=== PATIENT | male | born 1940 | race Caucasian/White ===

== ENCOUNTER → 2018-04-13 | Outpatient (CLI) | payer MEDICARE, OTHER ==
[2018-04-13 16:15] LABS: BILIRUBIN,DIRECT 0.3 MG/DL (0.0-0.3); BILIRUBIN,INDIRECT 0.3 MG/DL; BILIRUBIN,TOTAL 0.6 MG/DL (0.1-1.0); TOTAL PROTEIN 6.9 GM/DL (6.4-8.2)
[2018-04-15 06:18] LABS: HEPATITIS C ANTIBODY C Non-Reactive (Non-Reactive)
== END ==
LOC: LAB 15:19
PROVIDERS: ATTEND Orthopaedic Surgery
DX: M25.562 Pain in left knee (principal); R17 Unspecified jaundice
CPT/HCPCS: 36415; 80074; 80076

== ENCOUNTER → 2020-07-26 | Outpatient (CLI) | payer MEDICARE, OTHER | LOC: LAB FS 10:20 | PROVIDERS: ATTEND Orthopaedic Surgery Orthopaedic Surgery of the Spine | DX: Z01.812 Encounter for preprocedural laboratory examination (principal); Z20.822 Contact with and (suspected) exposure to COVID-19 | CPT/HCPCS: 87635 ==

== ENCOUNTER 2022-01-22 14:03 | Emergency (ER) | payer MEDICARE, OTHER ==
[~2022-01-22] VITALS: Ht 195 cm; Wt 122.0 kg
[2022-01-22 14:40] VITALS: BP 147/79
--- NOTE | 2022-01-22 14:41 | ED Fall/Injury ---
General Stated Complaint: FALL; BACK/FACIAL PAIN Source: patient, family Exam Limitations: no limitations History of Present Illness Date Seen by Provider: Jan 22, 2022 Time Seen by Provider: 14:08 Initial Comments 81-year-old male with past medical history of Parkinson's coming in after he was sitting in a chair, and fell backwards, and hit the back of his head roughly 2 and half hours prior to arrival. He had a bad headache for short period of time which now is mostly gone. He also has midthoracic back pain which is worse with moving, better with rest. He has been ambulatory since the incident. He also states he is having some jaw discomfort, although he did not hit his jaw on the ground. Does not take any blood thinners daily. Otherwise denying any other acute complaints Allergies and Home Medications Allergies Coded Allergies: No Known Drug Allergies (Unverified , 01/22/22) Patient Home Medication List Home Medication List Reviewed: Yes Review of Systems Review of Systems Constitutional: No fever Eyes: No Symptoms Reported Ears, Nose, Mouth, Throat: mouth pain (Jaw discomfort) Respiratory: no symptoms reported Cardiovascular: no symptoms reported Gastrointestinal: no symptoms reported Genitourinary: no symptoms reported Musculoskeletal: see HPI Skin: no symptoms reported Psychiatric/Neurological: Headache All Other Systems Reviewed Negative Unless Noted: Yes Past Xbffqkw-Mmppzq-Zpazic Hx Patient Social History Tobacco Use?: No Substance use?: No Alcohol Use?: No Past Medical History Surgeries: Yes (prostate surgery) Physical Exam Vital Signs Vital Signs - First Documented 01/22/22 14:40 Pulse 81 Resp 16 B/P (MAP) 147/79 (101) Pulse Ox 95 O2 Delivery Room Air Capillary Refill : Height, Weight, BMI Height: '" Weight: lbs. oz. kg; BMI Method: General Appearance: WD/WN, no apparent distress HEENT: PERRL/EOMI, normal ENT inspection, pharynx normal Neck: non-tender, full range of motion, supple, normal inspection Cardiovascular: regular rate, rhythm, no edema, no murmur Respiratory: chest non-tender, lungs clear, normal breath sounds, no respirat ory distress, no accessory muscle use Gastrointestinal: normal bowel sounds, non tender, soft; No distended, No guarding, No rebound Back: normal inspection, no CVA tenderness, vertebral tenderness (mid thoracic, mild) Extremities: normal range of motion, non-tender, normal inspection, no pedal edema, no calf tenderness, normal capillary refill Neurologic/Psychiatric: 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 II-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 nml as tested, no motor/sensory deficits, alert, normal mood/affect, oriented x 3, other (Slow gait assisted with walker) Skin: normal color, warm/dry Lymphatic: no adenopathy Sebastián Coma Score Best Eye Response: (4) Open Spontaneously Best Verbal Response: (5) Oriented Best Motor Response: (6) Obeys Commands Progress/Results/Core Measures Results/Orders My Orders Orders - KARLI FAY MD Ct Head/Face/Cervical Wo (01/22/22 14:36) Ct Thoracic Spine Wo (01/22/22 14:36) Vital Signs/I&O 01/22/22 14:40 Pulse 81 Resp 16 B/P (MAP) 147/79 (101) Pulse Ox 95 O2 Delivery Room Air Progress Progress Note : Progress Note 81-year-old male presented after mechanical fall. Tender on the head, mid thoracic spine, and jaw. CT head, cervical spine, max face, and thoracic spine ordered with no acute abnormalities. There is a thyroid mass that needs an outpatient ultrasound which I made him aware of. He was then discharged home in stable condition with strict return precautions Diagnostic Imaging Diagonstic Imaging: CT (head,c spine, max face, t spine) Comments [facility]. [place], [place] NAME: SHERIDAN PAGE [facility] REC#: [id number] PT STATUS: REG ER : 1940 PHYSICIAN: KARLI FAY MD ADMIT DATE: 01/22/22/ER FS Signed Date of Exam:01/22/22 CT HEAD/FACE/CERVICAL WO PROCEDURE: CT head, face, and cervical spine without contrast. TECHNIQUE: Multiple contiguous axial images were obtained through the head, neck, and facial bones without the use of intravenous contrast. Sagittal and coronal reformations through the cervical spine and facial bones were also performed. Auto Exposure Controls were utilized during the CT exam to meet ALARA standards for radiation dose reduction. INDICATION: Fall with injury to the head, neck and face. COMPARISON: No prior studies are available for comparison. CT HEAD: The ventricles and sulci are appropriate for the patient's age. No sulcal effacement or midline shift is identified. No acute intra-axial or extra-axial hemorrhage is detected. Cisterns are patent. Visualized paranasal sinuses are clear apart from opacification of the right half of the frontal sinus and right-sided ethmoid air cells. Sphenoid sinus and maxillary sinuses are clear. Mastoids are well-aerated. IMPRESSION: 1. No acute intracranial process is detected. 2. Paranasal sinus disease. CT CERVICAL SPINE: Curvature and alignment of the cervical spine is normal. No fracture or subluxation is seen. There is generalized cervical degenerative disc disease with variable disc space narrowing and marginal spurring. The prevertebral tissues are normal. The odontoid is intact. There appears to be a large mass in the left paratracheal location, likely enlarged thyroid. IMPRESSION: 1. Cervical spondylosis. No acute bony abnormality is detected. 2. Probable left thyroid mass. Dedicated thyroid ultrasound could be performed on a nonemergent basis for further evaluation. CT FACE: The mandible is intact. Zygomatic arches are intact. The maxillary sinus galicia, nasal bones and orbital galicia appear intact. No definite facial bone fracture is seen. There is opacification of the right half of the frontal sinus as well as several right-sided ethmoid air cells. There is also some mucosal thickening of the right maxillary sinus. Otherwise the paranasal sinuses are clear. IMPRESSION: 1. Paranasal sinus mucosal disease. 2. No facial bone fracture is detected. Dictated by: Dictated on workstation # [id number] Dict: 01/22/22 1517 Trans: 01/22/22 1556 [facility] [id number] Interpreted by: SUSAN JETER MD Electronically signed by: SUSAN JETER MD 01/22/22 1556 [facility] [place], [place] NAME: SHERIDAN PAGE [facility] REC#: [id number] PT STATUS: REG ER : 1940 PHYSICIAN: KARLI FAY MD ADMIT DATE: 01/22/22/ER FS Signed Date of Exam:01/22/22 CT THORACIC SPINE WO PROCEDURE: CT thoracic spine without contrast. TECHNIQUE: Multiple axial computerized tomography images were obtained from the base of the thoracic spine to the vertex without intravenous contrast. Auto Exposure Controls were utilized during the CT exam to meet ALARA standards for radiation dose reduction. INDICATION: Back injury from a fall. FINDINGS: Patient has had previous kyphoplasties at T8, T9 and T10. Vertebral alignment is normal. There are no acute compression fractures. IMPRESSION: No acute abnormality seen in the thoracic spine. Dictated by: Dictated on workstation # [id number] Dict: 01/22/22 1524 Trans: 01/22/22 1545 [id number] Interpreted by: SOLEDAD ALEXANDRA MD Electronically signed by: SOLEDAD ALEXANDRA MD 01/22/22 1545 Departure Impression Primary Impression: Fall Qualified Codes: W19.XXXA - Unspecified fall, initial encounter Additional Impression: Back pain Qualified Codes: M54.6 - Pain in thoracic spine Disposition: 01 HOME, SELF-CARE Condition: Stable Departure-Patient Inst. Decision time for Depature: 16:09 Referrals: LORENA SCHAEFFER MD (PCP) Primary Care Physician Patient Instructions: Upper Back Pain ED Add. Discharge Instructions: Fortunately nothing is broken on the CT imaging of your head, face, neck, and back. The left-sided for thyroid appeared enlarged on the CT imaging. You do need an ultrasound of your thyroid as an outpatient on a nonemergent basis. Take Tylenol as needed for pain. KARLI FAY MD Jan 22, 2022 14:41
--- NOTE | 2022-01-22 15:32 | Diagnostic Imaging Report ---
PROCEDURE: CT thoracic spine without contrast. TECHNIQUE: Multiple axial computerized tomography images were obtained from the base of the thoracic spine to the vertex without intravenous contrast. Auto Exposure Controls were utilized during the CT exam to meet ALARA standards for radiation dose reduction. INDICATION: Back injury from a fall. FINDINGS: Patient has had previous kyphoplasties at T8, T9 and T10. Vertebral alignment is normal. There are no acute compression fractures. IMPRESSION: No acute abnormality seen in the thoracic spine. Dictated by: Dictated on workstation # [id number]
--- NOTE | 2022-01-22 15:33 | Diagnostic Imaging Report ---
PROCEDURE: CT head, face, and cervical spine without contrast. TECHNIQUE: Multiple contiguous axial images were obtained through the head, neck, and facial bones without the use of intravenous contrast. Sagittal and coronal reformations through the cervical spine and facial bones were also performed. Auto Exposure Controls were utilized during the CT exam to meet ALARA standards for radiation dose reduction. INDICATION: Fall with injury to the head, neck and face. COMPARISON: No prior studies are available for comparison. CT HEAD: The ventricles and sulci are appropriate for the patient's age. No sulcal effacement or midline shift is identified. No acute intra-axial or extra-axial hemorrhage is detected. Cisterns are patent. Visualized paranasal sinuses are clear apart from opacification of the right half of the frontal sinus and right-sided ethmoid air cells. Sphenoid sinus and maxillary sinuses are clear. Mastoids are well-aerated. IMPRESSION: 1. No acute intracranial process is detected. 2. Paranasal sinus disease. CT CERVICAL SPINE: Curvature and alignment of the cervical spine is normal. No fracture or subluxation is seen. There is generalized cervical degenerative disc disease with variable disc space narrowing and marginal spurring. The prevertebral tissues are normal. The odontoid is intact. There appears to be a large mass in the left paratracheal location, likely enlarged thyroid. IMPRESSION: 1. Cervical spondylosis. No acute bony abnormality is detected. 2. Probable left thyroid mass. Dedicated thyroid ultrasound could be performed on a nonemergent basis for further evaluation. CT FACE: The mandible is intact. Zygomatic arches are intact. The maxillary sinus galicia, nasal bones and orbital galicia appear intact. No definite facial bone fracture is seen. There is opacification of the right half of the frontal sinus as well as several right-sided ethmoid air cells. There is also some mucosal thickening of the right maxillary sinus. Otherwise the paranasal sinuses are clear. IMPRESSION: 1. Paranasal sinus mucosal disease. 2. No facial bone fracture is detected. Dictated by: Dictated on workstation # [id number]
== END 2022-01-22 16:15 | disposition home or self-care (01) ==
LOC: EDUNIT# 14:03 → ER FS 14:05
DX: M54.6 Pain in thoracic spine (principal); R68.84 Jaw pain; W07.XXXA Fall from chair, initial encounter
CPT/HCPCS: 70450; 70486; 72125; 72128; 99285

== ENCOUNTER 2023-01-25 11:23 | Inpatient (IN) | payer MEDICARE, OTHER ==
[~2023-01-25] VITALS: Ht 193 cm; Wt 111.0 kg
[2023-01-25] MEDS ORDERED: MAGN420T PO (11:42)
[2023-01-25] MEDS ORDERED: CARB-300 PO (11:42)
[2023-01-25] MEDS ORDERED: TMSL.4C PO (11:42)
[2023-01-25] MEDS ORDERED: ASPI-999 PO (11:42)
[2023-01-25] MEDS ORDERED: TRZ50T PO (11:42)
[2023-01-25] MEDS ORDERED: NALO4SPR NS (11:42)
[2023-01-25] MEDS ORDERED: LISI30TA5 PO (11:42)
[2023-01-25] MEDS ORDERED: SULF1TAB34 PO (11:42)
[2023-01-25] MEDS ORDERED: ONDANSETRON 4 MG ORAL DISSOLVE TABLET PO PRN (13:30)
[2023-01-25] MEDS ORDERED: guaiFENesin/CODEINE 10ML UDC PO PRN (13:30)
[2023-01-25] MEDS ORDERED: diphenhydrAMINE 25 MG TABLET PO PRN (13:30)
[2023-01-25] MEDS ORDERED: Sodium Phosphate/Sodium Biphosphate ADULT enema PR PRN (13:30)
[2023-01-25] MEDS ORDERED: CALCIUM CARBONATE 500 MG CHEW TABLET PO PRN (13:30)
[2023-01-25] MEDS ORDERED: DOCUSATE SODIUM 100 MG CAPSULE PO PRN (13:30)
[2023-01-25] MEDS ORDERED: LOPERAMIDE 2 MG CAPSULE PO PRN (13:30)
--- NOTE | 2023-01-25 13:32 | PM&R Post Admission Assessment ---
PM&R HP Date of Visit: Jan 25, 2023 Time of Visit: 18:00 History of Present Illness CC: Parkinsonism HPI: This is an 82yoWM clinic patient of Dr Macedo who presents from [facility] following a respiratory arrest after aspirating cauliflower on 01/19/23. He has a h/o Parkinsonism and has had dysphagia on a chronic and worsened status prior to event. He was intubated after multiple attempts and was moved to [place] for higher level of care and remained intubated until 01/21/23. Patient completed Zosyn for aspiration PNA and remains on 2L/min. He is very debilitated. Aggressive rehab will be initiated, Family is at bedside. Past Gztefzk-Yatpee-Mmeprd Hx Past Med/Social Hx: Reviewed Nursing Past Med/Soc Hx, Reviewed and Corrections made Patient Social History Marrital Status: Employed/Student: employed Alcohol Use: Occasionally Uses Smoking Status: Never a Smoker Past Medical History Neurological: Parkinson's Disease Musculoskeletal: Degenerate Disk Disease PM&R Allergy/Meds/Data Review Allergies Coded Allergies: No Known Drug Allergies (Unverified , 01/22/22) Home Medications Scheduled Aspirin (Aspirin), 81 MG PO DAILY, (Reported) Carbidopa/Levodopa (Carbidopa-Levodopa 25-100 Tab), 3 EA PO TID, (Reported) Lisinopril (Lisinopril), 30 MG PO DAILY, (Reported) Multivitamin (Multivitamin), 1 EACH PO DAILY, (Reported) Solifenacin Succinate (Solifenacin Succinate), 5 MG PO HS, (Reported) Sulfamethoxazole/Trimethoprim (Sulfamethoxazole-Tmp Ss Tablet), 1 EA PO HS, (Reported) Trazodone HCl (Trazodone HCl), 50 MG PO HS, (Reported) Scheduled PRN Naloxone HCl (Narcan), 1 SPRAY NS UD PRN for OPIOID OD, (Reported) Current Medications Current Medications Reviewed Review of Systems Constitutional: see HPI, dizziness, malaise, weakness EENTM: no symptoms reported Respiratory: cough, dyspnea on exertion Cardiovascular: no symptoms reported Gastrointestinal: no symptoms reported Genitourinary: no symptoms reported Musculoskeletal: back pain, joint pain Skin: no symptoms reported Psychiatric/Neurological: Anxiety, Depressed All Other Systems Reviewed Negative Unless Noted: Yes Physical Exam Physical Exam Vital Signs Capillary Refill : Height, Weight, BMI Height: '" Weight: lbs. oz. kg; 32.00 BMI Method: General Appearance: No Apparent Distress, WD/WN, Chronically ill Eyes: Bilateral Eye Normal Inspection, Bilateral Eye PERRL HEENT: PERRL/EOMI, Normal ENT Inspection, Pharynx Normal Neck: Full Range of Motion, Normal Inspection, Non Tender, Supple, Carotid Bruit Respiratory: Chest Non Tender, Lungs Clear, Normal Breath Sounds, No Accessory Muscle Use, No Respiratory Distress, Decreased Breath Sounds Cardiovascular: Regular Rate, Rhythm, No Edema, No Gallop, No JVD, No Murmur, Normal Peripheral Pulses Gastrointestinal: Normal Bowel Sounds, No Organomegaly, No Pulsatile Mass, Non Tender, Soft Back: Normal Inspection, No CVA Tenderness, No Vertebral Tenderness Extremity: Normal Capillary Refill, Normal Inspection, Normal Range of Motion, Non Tender, No Calf Tenderness, No Pedal Edema Neurologic/Psychiatric: Alert, Oriented x3, 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 Norm as Tested, Abnormal Gait, Depressed Affect, Motor Weakness (generalized) Skin: Normal Color, Warm/Dry Lymphatic: No Adenopathy PM&R Medical Assessment & Plan REHAB/MEDICAL ASSESSMENT AND PLAN: REHAB IMPAIRMENT GROUP: Parkinsonism with debility ETIOLOGIC DIAGNOSIS: Respiratory failure with aspiration PNA and intubation The comorbidities that impact the patients function and/or functional outcome by: severe PD, dysphagia, aspiration risk, constipation REHAB PLAN: The patient is being admitted to our comprehensive inpatient rehabilitation facility and can tolerate the intensity of service consisting of at least: 180 minutes of therapy a day, 5 out of 7 days a week Rehab treatment will consist of: PT OT will focus on regaining function with the use of AD in order to regain function and ambulation in order to return to independence and ST will work on aspiration risk The patient/family has a good understanding of our discharge process and will benefit from an interdisciplinary inpatient rehabilitation program. The patient has potential to make improvement and is in need of at least two of the following multidisciplinary therapies including but not limited to physical, occupational, speech, and prosthetics and orthotics. Additionally the patient will need services from respiratory, nutritional services, wound care, psychology, etc. (Customize this to each patient). Given the patients complex condition and risk of further medical complications, rehabilitation services cannot be safely or effectively provided at a lower level of care such as a correction facility. BARRIERS TO DISCHARGE: Severe debility with PD ESTIMATED LOS: 14 days DISPOSITION: Home RELEVANT CHANGES SINCE PREADMISSION SCREENING: I have compared the patients medical and functional status at the time of the preadmission screening and there are: no changes PROGNOSIS: Fair to good REHABILITATION GOALS: 1. PT OT will focus on regaining function with the use of AD in order to regain function and ambulation in order to return to independence and ST will work on aspiration risk All the above goals were reviewed with the patient and he/she is in agreement. By signing this document, I acknowledge that I have personally performed a full physical examination on this patient within 24 hours of admission to this inpatient rehabilitation facility and have determined the patient to be able to tolerate the above course of treatment at an intensive level for a reasonable period of time. I will be completing a detailed individualized Plan of Care for this patient by day #4 of the patients stay based upon the Preadmission Screen, the Post-Admission Evaluation, and the therapy evaluations. Admission Dx/Comorbidities: (1) Parkinsons ICD Codes: G20.A1 - Parkinson's disease without dyskinesia, without mention of fluctuations Assessment/Plan Assessment and Plan Assess & Plan/Chief Complaint Assessment: Severe debility following aspiration PNA and respiratory arrest s/p intubation Severe progressive Parkinsonism Dyphagia Severe constipation acute on chronic Plan: Home meds PT OT ST BM regimen HAIM PAYNE DO Jan 25, 2023 13:31
--- NOTE | 2023-01-25 14:38 | Occupational Therapy Eval ---
OT Evaluation-General/PLF Medical Diagnosis Admission Date Medical Diagnosis: Parkinson's Disease Onset Date: Jan 20, 2023 Therapy Diagnosis Therapy Diagnosis: decreased ADL status, weakness Referral Physician: Guerline Referral Reason: Evaluation/Treatment Medical History Pertinent Medical History: HTN, Parkinson's Additional Medical History HTN, Parkinson's Disease, bleeding ulcer, back surgery, knee surgery Current History 01/20/23 EMS [facility] due to choking episode followed by respiratory arrest (~5 min CPR, questionably lost pulse). Pt was intubated upon arrival to hospital. Pt transferred to [facility] for pulmonology consult, bronchoscopy and further management. Extubated 01/21/23. Pt transferred to [facility] 01/25/23 Reviewed History: Yes Social History Home: Assisted Living ([facility]) Current Living Status: Spouse Entry Into Home: Level Entry ADL-Prior Level of Function SCALE: Activities may be completed with or without assistive devices. 7-Jujmgghvje-djxclqt completes the activity by him/herself with no assistance from a helper. 5-Set-up or Clean-up Assistance-helper sets up or cleans up; patient completes activity. [place] assists only prior to or following the activity. 4-Supervision or Touching Assistance-helper provides verbal cues and/or touching/steadying and/or contact guard assistance as patient completes activity. Assistance may be provided throughout the activity or intermittently. 3-Partial/Moderate Assistance-helper does LESS THAN HALF the effort. [place] lifts, holds or supports trunk or limbs, but provides less than half the effort. 2-Substantial/Maximal Assistance-helper does MORE THAN HALF the effort. [place] lifts or holds trunk or limbs and provides more than half the effort. 5-Ujpymwnil-ncwazp does ALL the effort. Patient does none of the effort to complete the activity. Or, the assistance of 2 or more helpers is required for the patient to complete the activity. If activity was not attempted, code reason: 7-Patient Refused. 9-Not Applicable-not attempted and the patient did not perform the activity before the current illness, exacerbation or injury. 10-Not Attempted due to Environmental Limitations-(lack of equipment, weather restraints, etc.). 88-Not Attempted due to Medical Conditions or Safety Concerns. ADL PLOF Comments Pt required some assistance with ADLS at PLOF, IND with functional mobility u sing FWW. He has assistance with showering (drying legs and back), and assistance completing footwear. He has a walk in shower, it is small and he is unsure if a SC will fit. His completes medication management (she sorts medications into pill container, then he is able to take meds independently). He sleeps in a regular bed and has a standard toilet. He has ~3 falls a month using his walker. 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 Mental Status/Objective Patient Orientation: Person, Place, Time, Situation Attachments: Oxygen (2L NC) Current Glasses/Contacts: Yes Hearing Aids: Yes Dentures/Partials: No Hand Dominance: Left Upper Extremity ROM Decreased b/l, BUE shoulder flexion to approx 90 degrees, WFL elbow/wrist/hand Upper Extremity Coordination WFL Upper Extremity Sensation WFL, pt denies tingling/numbness BUEs. Upper Extremity Strength grossly 3/5 BUEs. ADL-Treatment Eating (QC): 3 (Assist per [employer]/RN.) Oral Hygiene (QC): 4 Shower/Bathe Self (QC): 1 (assist x2 required to wash buttocks.) Upper Body Dressing (QC): 4 (per pt report) Lower Body Dressing (QC): 1 On/Off Footwear (QC): 1 Toileting Hygiene (QC): 1 (assist x2 required.) Other Treatments OT evaluation complete. OT/PT cotreat due to skill of 2 clinicians required which a rehab therapy manager could not perform in order to coordinate UE/LEs, decrease fall risk, and due to pt's limitations in strength, activity tolerance, mobility/transfers. OT focused on UE placement, cues for sequencing and safety and ADLs, PT focused on LE placement, gross overall movement, transfers and mobility. Pt performed functional mobility and transfers including bed mobility, sit to/from stand, mobility using FWW, and w/c mobility. Pt taken to parallel bars, completed mobility forward/backward along length of bar 2 times, mirror placed in front of pt for visual cue for midline. Pt returned to his room via w/c, transfer to recliner using FWW. Max A x2 rolling, max A x2 sit to/from supine, max A x2 sit to/from stand (leans heavily L requiring max verbal/tactile cues for upright posture and walker use). Mod-Max x2 bed to/from chair with FWW. Mod A x2 functional mobility with FWW 35.5' with 3rd person for w/c follow (narrow YEN, short step length, leans heavily with multiple cues for upright posture and pushing down on walker). w/c mobility 135' using BUEs and LEs with cues to use RUE and avoid obstacles R side. O2 sats 86-88% on 2L in bed prior to upright activity. Increased to 3L per RN with no change. Increased to 4L with sats reaching 90% in supine. O2 at 4 L for gait. Sats 92% /p 35' gait. Education OT Patient Education: Correct positioning, Energy conservation, Modified ADL techniques, Progress toward Goal/Update tx plan, Purpose of tx/functional activities, Rehab process, Safety issues, Transfer techniques, W/C management Teaching Recipient: Patient Teaching Methods: Discussion Response to Teaching: Verbalize Understanding BIMS CAM BIMS Expression of Ideas and Wants: Without Difficulty Understanding Verbal Content: Understands Brief Interview/Mental Status: Yes IRF WALKER BIMS: IRF WALKER BIMS Response (Comments) Value Repitition of Three Words Three 3 Recalls Socks Yes, No Cue Required 2 Recalls Blue Yes, No Cue Required 2 Recalls Bed No, Could Not Recall 0 Year Correct 3 Month Accurate Within 5 Days 2 Day Incorrect or No Answer 0 Total 12 Patient Normally Able to Recal: Current Session, Location of own room, Staff Names and faces, That he/she in a [facility] Should Staff Asses. Mental St.: No Memory/Recall Ability: Current Season, Location of Own Room, Staff Names and Faces, That He[facility]She in Hospit[facility] CAM Mental Status Change/Baseline: 1 Inattention: 0 Disorganized thinkin Altered level of consciousness: 0 OT Short Term Goals Short Term Goals Time Frame: Feb 05, 2023 Toileting hygiene: 3 Lower body dressin Putting on/taking off footwear: 3 OT Usp Goals Usp Goals Time Frame: Feb 26, 2023 Eating (QC): 6 Oral Hygiene (QC): 6 Toileting Hygiene (QC): 6 Shower/Bathe Self (QC): 6 Upper Body Dressing (QC): 6 Lower Body Dressing (QC): 6 On/Off Footwear (QC): 6 Additional Goals: 1-Demonstrate ADL Tasks, 2-Verbalize Understanding, 3-Improv eStrength/Destinee 1=Demonstrate adherence to instructed precautions during ADL tasks. 2=Patient will verbalize/demonstrate understanding of assistive devices/modifications for ADL. 3=Patient will improve strength/tolerance for activity to enable patient to p erform ADL's. OT Education/Plan Problem List/Assessment Assessment: Decreased Activ Tolerance, Decreased UE Strength, Dependent Transfers, Impaired Bed Mobility, Impaired Funct Balance, Impaired I ADL's, Impaired Self-Care Skills, Restricted Funct UE ROM Discharge Recommendations Plan/Recommendations: Continue POC Equpiment Recommendations-D/C: Bath Chair Treatment Plan/Plan of Care Patient would benefit from OT for education, treatment and training to promote independence in ADL's, mobility, safety and/or upper extremity function for ADL's. Plan of Care: ADL Retraining, Functional Mobility, Group Exercise/Act as Ind, UE Funct Exercise/Act Treatment Duration: Feb 26, 2023 Frequency: At least 5 of 7 days/Wk (IRF) Estimated Hrs Per Day: Other (75 mins per day) Agreement: Yes Rehab Potential: Good Time Start Time: 14:25 (9014-9647 OT eval 17') Stop Time: 13:56 (0927-0392 cotreat 59') DATE: Jan 25, 2023 Total Time Billed (hr/min): 76 Billed Treatment Time 1, EVH (17'), FA 4 (59') RENÉ ESQUIVEL OT Jan 25, 2023 14:38
[2023-01-25 15:10] VITALS: BP 143/72
--- OUTSIDE RECORDS SUMMARY | 2023-01-25 15:10 | XMS REPORT ---
Author Author [facility] Address Unknown Phone Unavailable Care Team Providers Care Director Visual Name Role Phone JUNIE MONTILLA Unavailable PROBLEMS Type Condition ICD9-CM Code PTE86-RW Code Onset Dates Condition Status W/U Status Risk SNOMED Code Notes Problem Primary hypertension I10 confirmed 34401425 Problem Unsteadiness R26.81 confirmed 304849 003 Problem Spinal stenosis of lumbar region, unspecified whether neurogenic claudication present M48.061 confirmed [id number] Problem Morbid obesity E66.01 confirmed [id number] Problem History of goiter Z86.39 confirmed [id number] Problem Sleep apnea, unspecified type G47.30 confirmed 55494145 Problem Parkinson disease G20 confirmed [id number] ALLERGIES Allergen (clinical drug ingredient) Drug/Non Drug Allergy documented on EMR Reaction Allergy Type Onset Date Status Wuigqiz-Qldssy-Halwo Pertussis Unknown Drug Allergy 12/25/2021 Active ENCOUNTERS from 1941 to 2023-01-12 Encounter Location Date Provider Diagnosis [facility] [address] [id number] [address] Jan, JUNIE ELADIA Encounter for immunization Z23 IMMUNIZATIONS Vaccine Route Administration Date Status PRIVATE HIGH DOSE FLU 22-23 (FLUZONE HD) AGE 65YRS AND UP Unknown Dec 15, 2021 Administer ed 1st Booster MODERNA Bivalent , COVID-19, 0.5mL IM Intramuscular Jan 06, 2022 Administered 2nd Booster MODERNA COVID-19 , mRNA, 0.25mL IM Intramuscular June 20, 2021 Administered Booster HRSA MODERNA, COVID- 19, 0.25mL IM Intramuscular Jan 15, 2021 Administered 2nd Dose COVID-19, mRNA, MOD KAILA, 0.5 mL 2 IM Intramuscular Apr 26, 2020 Administered 1st Dose COVID-19, mRNA, MOD KAILA, 0.5 mL 2020 IM Intramuscular Mar 28, 2020 Administered SOCIAL HISTORY Sex Assigned At : Social History Observation Description Sex Assigned At Unknown PHQ2 Question Answer Notes In the last 2 weeks, how oft en have you had little interest or pleasure in doing things? Not at all In the last 2 weeks, how oft en have you been feeling down, depressed, or hopeless? Not at all Total PHQ2 Score 0 REASON FOR REFERRAL No Information MEDICATIONS Medication SIG (Take, Route, Frequency, Duration) Notes Start Date End Date Status traZODone HCl 50 MG 1 tablet at bedtime as needed Orally Once a day for 30 day(s) *started by Dr Mike BROWN 09/2021Sep, Active Aspirin 81 81 MG 1 tablet Orally Once a day Medication added per documents Active Tylenol 325 MG 1 tablet as needed Orally every 4 hrs PRN Active Ibuprofen 200 MG 1 tablet with food or milk as needed Orally Three times a day PRN Active Docusate Sodium 250 MG 1 capsule as needed Orally Once a day Active Sulfamethoxazole-Tri methoprim 400-80 MG 1 tablet Orally Once a day at bedtime daily medication Active Centrum Silver - as directed Orally Active Solifenacin Succinate 5 MG 1 tablet Orally Once a day Active Sinemet 10-100 MG 3 Tabs Orally Three times a day for 30 days *started by Dr Mike BROWN 09/2021Sep, Active Colchicine PRN for pseudo-gout Active Prevagen 10 MG as directed Orally OTC Active Lisinopril 30 MG TAKE 1 TABLET BY MOUTH DAILY for 90 days Active Veronika 180 MG 1 tablet Swallow whole with water; do not take with fruit juices. Orally Once a day Active Propranolol HCl 40 MG 1 tablet Orally Twice a day Active REASON FOR VISIT COVID-19 Booster MEDICAL (GENERAL) HISTORY Type Description Date Surgical History tonsillectomy 1946 Surgical History appendectomy 1956 Surgical History cholecystectomy 1998 Surgical History left knee cartilage surgery 195 8 Surgical History spinal stenosis surgery 2017 Surgical History left knee replacement 2019 Surgical History TURP 2019 Surgical History vertebra surgery 2020 Hospitalization History Pneumonia 1957 Hospitalization History Bleeding ulcer 1969 Hospitalization History Pancreatitis 1998 MENTAL STATUS No Information ASSESSMENTS Encounter Date Diagnosis Assessment Notes Treatment Notes Treatment Clinical Notes Jan, Encounter for immunization (ICD-10 - Z23) PLAN OF TREATMENT Medication Medication Name Sig Start Date Stop Date Lisinopril 30 MG TAKE 1 TABLET BY MOUTH DAILY for 90 d ays Next Appt Details Provider Name:LORENAJOJO DELGADO, 2023-01-12 01:30:00 PM, [address] [place], [address], Insurance Providers Payer Name Payer Address Payer Phone Insured Name Patient Relationship to Insured Coverage Start Date Coverage End Date Subscriber Number Group Number [facility] PART A [address] [facility] [phone] Lazaro García Self - patient is the insured [id number] [facility]ly [facility] Supplemental Insurance [address] [address] [facility] [address] Lazaro García Self - patient is the insured [id number]
[2023-01-25] MEDS ORDERED: MULT-1136 PO (15:34)
[2023-01-25] MEDS ORDERED: SULF-11 PO (15:34)
[2023-01-25] MEDS ORDERED: SOLI5TAB7 PO (15:34)
[2023-01-25] MEDS ORDERED: CARB1TAB32 PO (15:34)
--- NOTE | 2023-01-25 16:10 | Physical Therapy Evaluation ---
PT Evaluation-General Medical Diagnosis Admission Date Jan 25, 2023 at 14:25 Medical Diagnosis: Parkinson's Disease Onset Date: Jan 20, 2023 Therapy Diagnosis Therapy Diagnosis: significant mobility impairment, balance&endurance deficit, fall risk Precautions Precautions/Isolations: Fall Prevention, Standard Precautions Weight Bear Status Full Weight Bearing Full Weight Bearing Referral Physician: Guerline Reason for Referral: Evaluation/Treatment Medical History Pertinent Medical History: HTN Additional Medical History Parkinson's, bleeding ulcer, gout, MANZANITA, hx appy, back surgery, cataract, cholecystectomy, hernia repair, knee surgery, tonsillectomy, c-spine surgery, t- spine surgery. Current History Choking episode due to dysphagia/Parkinson's with failed cricothyrotomy and failed intubation --> resp arrest and CPR x 5 minutes. Extubated 01/21/23. 2-4 L O2. Reviewed History: Yes Social History Home: Assisted Living ([facility]) Current Living Status: Spouse Entry Into Home: Level Entry Prior Prior Level of Function SCALE: Activities may be completed with or without assistive devices. 8-Fdezrlujvq-pkamwwj completes the activity by him/herself with no assistance from a helper. 5-Set-up or Clean-up Assistance-helper sets up or cleans up; patient completes activity. [place] assists only prior to or following the activity. 4-Supervision or Touching Assistance-helper provides verbal cues and/or touching/steadying and/or contact guard assistance as patient completes activity. Assistance may be provided throughout the activity or intermittently. 3-Partial/Moderate Assistance-helper does LESS THAN HALF the effort. [place] lifts, holds or supports trunk or limbs, but provides less than half the effort. 2-Substantial/Maximal Assistance-helper does MORE THAN HALF the effort. [place] lifts or holds trunk or limbs and provides more than half the effort. 3-Leerlspmp-eqbkvp does ALL the effort. Patient does none of the effort to complete the activity. Or, the assistance of 2 or more helpers is required for the patient to complete the activity. If activity was not attempted, code reason: 7-Patient Refused. 9-Not Applicable-not attempted and the patient did not perform the activity befo re the current illness, exacerbation or injury. 10-Not Attempted due to Environmental Limitations-(lack of equipment, weather re straints, etc.). 88-Not Attempted due to Medical Conditions or Safety Concerns. Bed Mobility: 6 (/c bed rail) Transfers (B,C,W/C): 6 (/c FWW) Gait: 6 (/c FWW, but states he has ~ 3 falls per month with his walker.) Stairs: 9 Wheelchair Mobility: 9 Indoor Mobility (Ambulation): Independent Stairs: Not Applicalbe Prior Devices Use: Walker PT Evaluation-Current Subjective Patient has no pain complaints. Flat affect. States he had vision issues prior to this episode. Flat affect. Wide-eyed gaze - able to track (R)/(L), difficulty tracking up. (L) eye converges, but (R) does not. Pain Section J - Health Conditions 1. Rarely or not at all 2. Occasionally 3. Frequently 4. Almost constantly 8. Unable to answer Pain Effect on Sleep: 1 Pain Interference with Therapy: 1 Pain Interference w/Day-to-Day: 1 Pt/Family Goals To return to [facility] in [facility] if able. Objective Attachments: Oxygen sats 86-88% on 2L in bed prior to upright activity. Increased to 3L with no change. Increased to 4L with sats reaching 90% in supine. ROM/Strength ROM Upper Extremities defer to OT ROM Lower Extremities (B) LE WFL at ankles and knees actively. Decreased (R) hip flexion actively due to weakness. (L) hip flexion - able to actively initiate and lift foot off fl oor, but does exhibit weakness. Strength Upper Extremities defer to OT Strength Lower Extremities Knees 5/5 (B). Ankles 5/5 (B). Hip extension 4+/5 (B). Hip flexion 2+/5 (R), 3-/5 (L). Neuromuscular (Tone, Coordination, Reflexes) Impaired motor coordination and initiation. Core weakness noted. Leans heavily (L) and has difficulty maintaining midline in unsupported and supported sitting and in standing with FWW/(B) UE support. Sensory Vision: See above Hearing: Impaired Hand Dominance: Left Sensation Right Lower Extremit: Intact Sensation Left Lower Extremity: Intact Transfers Roll Left & Right (QC): 1 (max (A) of 2) Sit to Lying (QC): 1 (max (A) of 2) Lying to Sitting/Side of Bed(Q: 1 (max (A) of 2) Sit to Stand (QC): 1 (max (A) of 2 to FWW, leans heavily (L), max cues for upright posture and walker use) Chair/Kmk-dz-Jxpbq Xfer(QC): 1 (mod -max (A) of 2 /c FWW) Toilet Transfer (QC): 1 Car Transfer (QC): 88 Gait Does the Patient Walk?: Yes Mode of Locomotion: Both Anticipated Mode of Locomotion: Both Walk 10 feet (QC): 1 (mod (A) of 2 /c 3rd person for w/c follow-up) Walk 50 ft with 2 Turns(QC): 88 (unable to reach 50' distance) Walk 150 ft (QC): 88 (unable to reach 150' distance) Walking 10ft/uneven surface-QC: 88 Distance: 35.5' Gait Assistive Device: FWW Comments/Gait Description narrow YEN, short step length, leans heavily (L), multiple cues for upright posture and to push down hard on walker. O2 at 4 L for gait. Sats 92% /p 35' gait. Wheelchair Training Does the Pt Use a Wheelchair?: Yes Distance: 135' Wheel 50 ft with 2 turns (QC): 4 (using (B) UE's and LE's. Cues to to coordinate UE's/LE's and to use (R) UE to avoid (R) side of uriarte and doorway) Wheel 150 ft (QC): 88 (unable to reach 150' distance - fatigued) Type of Wheelchair: Manual Stairs 1 Step (curb) (QC): 88 4 Steps (QC): 88 12 Steps (QC): 88 Balance Sitting Static: Poor Sitting Dynamic: Poor Standing Static: Poor Standing Dynamic: Poor Picking up an Object (QC): 88 Special Test Comments KU sitting balance score: 0-1/5 KU standing balance score: 0-1/5 Elderly Mobility Scale: 04/03. Assessment/Needs 82 year old male s/p anoxic event s/p choking with failed cricothyrotomy, failed intubation and failed brochoscopy with CPR performed x 5 minutes. Also has diagnosis of Parkinson's disease. Was extubated on 01/21/23. Has resultant significant mobility deficits for all bed mobility, functional transfers and ambulation. Is a fall risk, but states he fell ~ 3 x /month prior to this most recent hospitalization. Patient would benefit from ARU to maximize his balance/coordination/strength/mobility in preparation for return to [facility] or other level of care that is most appropriate for the patient's functional level. Rehab Potential: Fair Equipment Needs w/c, O2 PT Skilled Nursing Goals Skilled Nursing Goals PT Skilled Nursing Goals Time Frame: Feb 15, 2023 Roll Left to Right (QC): 4 Sit to Lying (QC): 4 Lying-Sitting on Side/Bed(QC): 4 Sit to Stand (QC): 4 Chair/Izx-iw-Znsml Xfer(QC): 3 Toilet/Commode Transfer (QC): 3 Car Transfer (QC): 3 Does the Patient Walk: Yes Walk 10 feet (QC): 3 Walk 10ft-Uneven Surface(QC): 3 Walk 50ft with 2 Turns (QC): 3 Walk 150 ft (QC): 3 Does the Pt use WC or Scooter?: Yes Wheel 50 feet with 2 turns (QC: 6 Type: Manual Wheel 150 feet: 6 Type: Manual 1 Step (curb) (QC): 3 4 Steps (QC): 9 12 Steps (QC): 9 Picking up an Object (QC): 3 KU sitting balance score: 3+. KU standing balance score: 2+. Elderly Mobility Scal3: 08/01 PT Plan Problem List Problem List: Activity Tolerance, Functional Strength, Safety, Balance, Gait, Transfer, Bed Mobility Treatment/Plan Treatment Plan: Continue Plan of Care Treatment Plan: Bed Mobility, Concurrent Therapy, Education, Functional Activity [place], Functional Strength, Group Therapy, Gait, Safety, Therapeutic Exercise, Transfers Treatment Duration: Feb 15, 2023 Frequency: At least 5 of 7 days/Wk (IRF) Estimated Hrs Per Day: Other (75' per Day M-F) Safety Risks/Education Patient Education: Gait Training, Transfer Techniques, W/C Management Teaching Recipient: Patient Teaching Methods: Demonstration, Discussion Response to Teaching: Reinforcement Needed Discharge Recommendations Therapy Discharge Recommendati: Post Acute PT Equpiment Recommendations-D/C: Front Wheeled Walker, Manual Wheelchair Target Placement to be determined Time Time In: 1442 Time Out: 1556 DATE: Jan 25, 2023 Total Billed Treatment Time: 74 Total Billed Treatment EVM: 15'(7868-6969. Co-treat 59') 6035-5471, 2 FA, 1 GT, 1 W/C Shasha Bansal PT Jan 25, 2023 16:10
--- NOTE | 2023-01-25 16:35 | ST Dysphagia Evaluation ---
Speech Evaluation-General Medical Diagnosis Parkinson's Disease Onset Date: Jan 20, 2023 Therapy Diagnosis Therapy Diagnosis: Dysphagia Precautions Precautions: Aspiration Precautions/Isolations: Aspiration Referral Referring Physician: Dr. Cunha Reason for Referral: Evaluation/Treatment Medical History Pertinent Medical History: HTN, Parkinson's HTN, Parkinson's Disease, bleeding ulcer, back surgery, knee surgery Current History 01/20/23 EMS [facility] [place] due to choking episode followed by respiratory arrest (~5 min CPR, questionably lost pulse). Pt was intubated upon arrival to hospital. Pt transferred to [facility] for pulmonology consult, bronchoscopy and further management. Extubated 01/21/23. Pt [facility] to [facility] 01/25/23 Reviewed History: Yes Social History Home: Assisted Living ([facility] in [place], [place]) Current Living Status: Spouse Speech PLF/Current-Dysphagia Prior Level of Function Pt required some assistance with ADLS at [facility]. His completes medication management (she sorts medications into pill container, then he is able to take meds independently). Subjective Pt is sitting in bedside chair with his son and in room. Pt agrees to therapy. Oral Motor Skills Current Food Consistancy: Mechanical Soft, Thin Liquids Ability to Follow Directions: Good Voice Voice Phonatory-Based Quality: Hoarse (Pt was intubated from 01/19-01/21) Voice Pitch: Normal Voice Loudness: Normal Face Facial Symmetry: Symmetrical Oral-Facial Assessment Oral-Facial Dentition: Normal Labial Seal Description: Normal Smile: Normal Lingual Protrusion: Normal Lingual ROM: Normal Can Clear Throat Volitionally: Yes Productive Throat Clear: Yes Dysphagia Evaluation Consistencies Presented: Regular, Thin Liquid, Mechanical Soft, Pureed Pt was presented with water, applesauce, a strawberry, and pam cracker Oral Phase: Oral Residue (Mild residue after first swallow of pam cracker) Pharyngeal Phase: Clears Throat Funct. Velo/Pharyngeal Symptom: Cough After Swallow Dietary Recommendations: Mechanical Soft Liquid Recommendations: Thin Swallowing Precautions: Decreased Rate of Oral Intake, Oral Supervision Staff, Oral Supervision Caregiver, Small Bites and Sips, Sitting Upright 90 Degrees Dysphagia Evaluation Summary Pt demonstrates mild oropharyngeal dysphagia, characterized by mild oral residue, cough after swallow of bolus, and a wet vocal quality that is able to be cleared through hard throat clear. Speech [facility] Goals [facility] Goals Pt will demonstrate diet upgrade trials without s/s of aspiration during PO intake with 5/5 trials. Pt will demonstrate adequate use of safe swallow strategies to eliminate s/s of laryngeal penetration and/or aspiration of safest, least restrictive diet with cues during 80% of therapeutic trials. Speech-Plan Patient/Family Goals Patient/Family Goals: To upgrade diet and return to prior level of living Treatment Plan Speech Therapy Treatment Plan: Continue Plan of Care Treatment Duration: Jan 25, 2023 Frequency: At least 5 of 7 days/Wk (IRF) Estimated Hrs Per Day: .5 hour per day Rehab Potential: Good Pt/Family Agrees to Plan: Yes Time Speech Therapy Time In: 14:00 Speech Therapy Time Out: 14:30 DATE: Jan 25, 2023 Total Billed Time: 30 Billed Treatment Time 1 KATHARINE 30 min Evelyn Galeas Jan 25, 2023 16:35
[2023-01-25] MEDS: ACETAMINOPHEN 325 MG TABLET PO PRN (18:26)
[2023-01-25] MEDS: Sulfamethoxazole/Trimethoprim DS TABLET PO SCH (18:30)
[2023-01-25] MEDS: DOCUSATE SODIUM 100 MG CAPSULE PO SCH (19:43)
[2023-01-25] MEDS: SENNA W/DOCUSATE TABLET PO SCH (19:43)
[2023-01-25 20:15] VITALS: BP 142/73
[2023-01-25] MEDS: traZODone 50 MG (DESYREL) TAB PO SCH (20:57)
[2023-01-25] MEDS: CARBIDOPA/LEVODOPA 25/100 TABLET PO SCH (20:58)
[2023-01-25] MEDS ORDERED: NON-FORMULARY MEDICATION 1 EA EA (Sulfamethoxazole/Trimethoprim (Sulfamethoxazole-Tmp Ss T PO SCH (21:00)
[2023-01-25] MEDS ORDERED: NON-FORMULARY MEDICATION 1 EA EA (Solifenacin Succinate 5 MG) PO SCH (21:00)
[2023-01-26] MEDS: MELATONIN 3 MG TABLET PO PRN ×2 (00:32→21:59)
[2023-01-26] MEDS: ACETAMINOPHEN 325 MG TABLET PO PRN ×2 (00:32→08:22)
[2023-01-26 00:51] VITALS: BP 128/71
[2023-01-26] MEDS: TROSPIUM 20 MG (SANCTURA) TAB PO SCH ×2 (06:01→17:14)
[2023-01-26] MEDS: THERAPEUTIC MULTIVITAMIN W/MINERALS TABLET PO SCH (06:01)
[2023-01-26 06:19] LABS: BASOPHILS % (AUTO) 0 % (0-10); EOSINOPHILS # (AUTO) 0.3 10^3/uL (0.0-0.3); EOSINOPHILS % (AUTO) 3 % (0-10); HEMATOCRIT 35 % (40-54); HEMOGLOBIN 11.6 g/dL (13.3-17.7); LYMPHOCYTES # (AUTO) 1.5 10^3/uL (1.0-4.0); LYMPHOCYTES % (AUTO) 17 % (12-44); MEAN CORPUSCULAR HEMOGLOBIN 30 pg (25-34); MEAN CORPUSCULAR HGB CONC 33 g/dL (32-36); MEAN CORPUSCULAR VOLUME 92 fL (80-99); MEAN PLATELET VOLUME 9.7 fL (9.0-12.2); MONOCYTES # (AUTO) 0.6 10^3/uL (0.0-1.0); MONOCYTES % (AUTO) 7 % (0-12); NEUTROPHILS # (AUTO) 6.5 10^3/uL (1.8-7.8); NEUTROPHILS % (AUTO) 72 % (42-75); PLATELET COUNT 201 10^3/uL (130-400)
[2023-01-26 06:26] LABS: POTASSIUM 3.4 MMOL/L (3.6-5.0)
[2023-01-26 06:28] LABS: CALCIUM 8.8 MG/DL (8.5-10.1)
[2023-01-26 06:29] LABS: TOTAL PROTEIN 5.4 GM/DL (6.4-8.2)
[2023-01-26 06:30] LABS: BILIRUBIN,TOTAL 1.6 MG/DL (0.1-1.0)
[2023-01-26 06:32] LABS: CREATININE SERUM 0.66 MG/DL (0.60-1.30)
--- NOTE | 2023-01-26 07:04 | PM&R Progress Note ---
Subjective HPI/CC On Admission Date Seen by Provider: Jan 26, 2023 Time Seen by Provider: 12:00 Subjective/Events-last exam 01/26/2023: Rested well last night Slow walking with therapy and 2 assists but it was strong and dramatic improvement Dysphagia improved CXR residual infiltrates Labs reviewed Potassium 3.4 so will initiate supplement BP stable O2 requirements are 4.0L Bowel regimen will be continued until BM Review of Systems General: Fatigue, Malaise Objective Exam Vital Signs Vital Signs Date Time Temp Pulse Resp B/P (MAP) Pulse Ox O2 Delivery O2 Flow Rate FiO2 01/26/23 15:47 94 Nasal Cannula 4.00 01/26/23 12:44 36.1 80 01/26/23 08:00 30 131/74 (93) Capillary Refill : General Appearance: No Apparent Distress, WD/WN, Chronically ill HEENT: PERRL/EOMI, Normal ENT Inspection, Pharynx Normal Neck: Full Range of Motion, Normal Inspection, Non Tender, Supple, Carotid Bruit Respiratory: Chest Non Tender, Lungs Clear, Normal Breath Sounds, No Accessory Muscle Use, No Respiratory Distress, Decreased Breath Sounds Cardiovascular: Regular Rate, Rhythm, No Edema, No Gallop, No JVD, No Murmur, Normal Peripheral Pulses Gastrointestinal: Normal Bowel Sounds, No Organomegaly, No Pulsatile Mass, Non Tender, Soft Back: Normal Inspection, No CVA Tenderness, No Vertebral Tenderness Extremity: Normal Capillary Refill, Normal Inspection, Normal Range of Motion, Non Tender, No Calf Tenderness, No Pedal Edema Neurologic/Psychiatric: Alert, Oriented x3, nursing home manager II-XII Norm as Tested, Abnormal Gait, Depressed Affect, Motor Weakness (generalized) Skin: Normal Color, Warm/Dry Lymphatic: No Adenopathy Results/Procedures Lab Laboratory Tests 01/26/23 06:04 Patient resulted labs reviewed. FIM Transfers Therapy Code Descriptions/Definitions Functional [place] Measure: 0=Not Assessed/NA 4=Minimal Assistance 1=Total Assistance 5=Supervision or Setup 2=Maximal Assistance 6=Modified [place] 3=Moderate Assistance 7=Complete IndependenceSCALE: Activities may be completed with or without assistive devices. 9-Vjtegbmzxt-tsgcrxb completes the activity by him/herself with no assistance from a helper. 5-Set-up or Clean-up Assistance-helper sets up or cleans up; patient completes activity. [place] assists only prior to or following the activity. 4-Supervision or Touching Assistance-helper provides verbal cues and/or touching/steadying and/or contact guard assistance as patient completes activity. Assistance may be provided throughout the activity or intermittently. 3-Partial/Moderate Assistance-helper does LESS THAN HALF the effort. [place] lifts, holds or supports trunk or limbs, but provides less than half the effort. 2-Substantial/Maximal Assistance-helper does MORE THAN HALF the effort. [place] lifts or holds trunk or limbs and provides more than half the effort. 2-Iyrvmpgnu-zyfpvm does ALL the effort. Patient does none of the effort to compl ete the activity. Or, the assistance of 2 or more helpers is required for the patient to complete the activity. If activity was not attempted, code reason: 7-Patient Refused. 9-Not Applicable-not attempted and the patient did not perform the activity before the current illness, exacerbation or injury. 10-Not Attempted due to Environmental Limitations-(lack of equipment, weather restraints, etc.). 88-Not Attempted due to Medical Conditions or Safety Concerns. Roll Left to Right (QC): 1 (max (A) of 2) Sit to Lying (QC): 1 (max (A) of 2) Sit to Stand (QC): 1 (max (A) of 2 to FWW, leans heavily (L), max cues for upright posture and walker use) Chair/Zer-th-Xlwpb Xfer(QC): 1 (mod -max (A) of 2 /c FWW) Car Transfer (QC): 88 Gait Training Does the Patient Walk?: Yes Walk 10 feet (QC): 1 (mod (A) of 2 /c 3rd person for w/c follow-up) Walk 50 ft with 2 Turns(QC): 88 (unable to reach 50' distance) Walk 150 ft (QC): 88 (unable to reach 150' distance) Walking 10ft/uneven surface-QC: 88 Gait Assistive Device: FWW Wheelchair Training Does the Pt Use a Wheelchair?: Yes Distance: 135' Wheel 50 ft with 2 turns (QC): 4 (using (B) UE's and LE's. Cues to to coord inate UE's/LE's and to use (R) UE to avoid (R) side of uriarte and doorway) Wheel 150 ft (QC): 88 (unable to reach 150' distance - fatigued) Type of Wheelchair: Manual Stair Training 1 Step (curb) (QC): 88 4 Steps (QC): 88 12 Steps (QC): 88 Balance Picking up an Object (QC): 88 ADL-Treatment Eating (QC): 3 (Assist per ENTERPRISE RESOURCE PLANNING CONSULTANT/RN.) Oral Hygiene (QC): 4 Shower/Bathe Self (QC): 1 (assist x2 required to wash buttocks.) Upper Body Dressing (QC): 4 (per pt report) Lower Body Dressing (QC): 1 On/Off Footwear (QC): 1 Toileting Hygiene (QC): 1 (assist x2 required.) Assessment/Plan Assessment and Plan Assess & Plan/Chief Complaint Assessment: Severe debility following aspiration PNA and respiratory arrest s/p intubation Severe progressive Parkinsonism Dyphagia Severe constipation acute on chronic BPH GERD Hypokalemia Severe constipation acute on chronic Plan: Home meds PT OT ST BM regimen 01/26/2023: Nebs O2 Replace potassium BM regimen (1) HAIM Mitchell DO Jan 26, 2023 07:04
[2023-01-26] MEDS: POTASSIUM BICARB 20 MEQ effervescent TABLET PO SCH (07:33)
[2023-01-26 08:00] VITALS: BP 131/74
[2023-01-26] MEDS ORDERED: LISINOPRIL 30 MG PO SCH (09:00)
[2023-01-26] MEDS ORDERED: NON-FORMULARY MEDICATION 1 EA EA (Multivitamin 1 EACH) PO SCH (09:00)
[2023-01-26] MEDS: ASPIRIN 81 MG CHEWABLE TABLET PO SCH (09:05)
[2023-01-26] MEDS: DOCUSATE SODIUM 100 MG CAPSULE PO SCH ×2 (09:05→22:00)
[2023-01-26] MEDS: LACTULOSE SYRUP 10GM/15ML 30ML UDC PO PRN (09:06)
[2023-01-26] MEDS: CARBIDOPA/LEVODOPA 25/100 TABLET PO SCH ×3 (09:06→18:01)
[2023-01-26] MEDS: SENNA W/DOCUSATE TABLET PO SCH ×2 (09:06→22:00)
[2023-01-26] MEDS: ENOXAPARIN 40 MG/0.4 ML SYRINGE SC SCH (09:07)
--- NOTE | 2023-01-26 12:26 | Physical Therapy Daily Note ---
PT Daily Note-Current Subjective Patient ready to participate in therapy. Son states his breathing is labored this a.m. Sats 95% on 4.5 L /c HR 77 bpm. Transferred O2 to cannister on back of w/c and set a 4L. O2 sats following gait = 92-93%, HR 79 bpm /p gait. Pain Section J - Health Conditions 1. Rarely or not at all 2. Occasionally 3. Frequently 4. Almost constantly 8. Unable to answer Pain Effect on Sleep: 1 Pain Interference with Therapy: 1 Pain Interference w/Day-to-Day: 1 Transfers SCALE: Activities may be completed with or without assistive devices. 3-Mfedchylyr-weetezo completes the activity by him/herself with no assistance from a helper. 5-Set-up or Clean-up Assistance-helper sets up or cleans up; patient completes a ctivity. [place] assists only prior to or following the activity. 4-Supervision or Touching Assistance-helper provides verbal cues and/or touching/steadying and/or contact guard assistance as patient completes activity. Assistance may be provided throughout the activity or intermittently. 3-Partial/Moderate Assistance-helper does LESS THAN HALF the effort. [place] lifts, holds or supports trunk or limbs, but provides less than half the effort. 2-Substantial/Maximal Assistance-helper does MORE THAN HALF the effort. [place] lifts or holds trunk or limbs and provides more than half the effort. 4-Kkypazaeu-bynufb does ALL the effort. Patient does none of the effort to complete the activity. Or, the assistance of 2 or more helpers is required for the patient to complete the activity. If activity was not attempted, code reason: 7-Patient Refused. 9-Not Applicable-not attempted and the patient did not perform the activity before the current illness, exacerbation or injury. 10-Not Attempted due to Environmental Limitations-(lack of equipment, weather restraints, etc.). 88-Not Attempted due to Medical Conditions or Safety Concerns. Sit to Stand (QC): 3 (multiple attempts for practice from w/c. Cues to push hips forward then sit up - works weak core. Cues for hand placement. Min-Mod (A) of 2 x 6 attempts /c max cues to stand with upright posture. ) Chair/Zhw-se-Uzmok Xfer(QC): 3 (MIn (A) of 2 /c mod cues using FWW w/c>recliner. ) Weight Bearing Full Weight Bearing Full Weight Bearing Gait Training Walk 10 feet (QC): 1 (Mod (A) of 2 with w/c back up 64' - leans heavily (L) and needs v.c/v.c/t.c to center self in walker. Walked 135' 2nd attempt with same assist level. 02 with all gait/activity at 4L.) Walk 50 ft with 2 Turns(QC): 1 Wheelchair Training Wheel 50 ft with 2 turns (QC): 4 (cues to use (R) arm more to avoid (R) obstacles, cues for big pushes with both arms. Increased time to complete. Propelled 20' enroute to gym /p gait.) Exercises Standing in // bars with mirror to help patient stay centered walked forward 10' x 4 and backward 10' x 4 /c max cues for upright posture, hand positioning and to weight bear thru arms for balance. PT Environmental Engineering Intern Goals Environmental Engineering Intern Goals PT [facility] Goals Time Frame: Feb 15, 2023 Roll Left & Right (QC): 4 Sit to Lying (QC): 4 Lying-Sitting on Side/Bed(QC): 4 Sit to Stand (QC): 4 Chair/Sdq-ps-Cbhow Xfer(QC): 3 Toilet Transfer (QC): 3 Car Transfer (QC): 3 Does the Patient Walk: Yes Walk 10 feet (QC): 3 Walk 50ft with 2 Turns (QC): 3 Walk 150 ft (QC): 3 Walking 10ft on Uneven Surface: 3 1 Step (curb) (QC): 3 4 Steps (QC): 9 12 Steps (QC): 9 Picking up an Object (QC): 3 Does the Pt use WC or Scooter?: Yes Wheel 50 feet with 2 turns (QC: 6 Type: Manual Wheel 150 feet: 6 Type: Manual PT Plan Treatment/Plan Treatment Plan: Continue Plan of Care Treatment Plan: Bed Mobility, Concurrent Therapy, Education, Functional Activity [place], Functional Strength, Group Therapy, Gait, Safety, Therapeutic Exercise, Transfers Treatment Duration: Feb 15, 2023 Frequency: At least 5 of 7 days/Wk (IRF) Estimated Hrs Per Day: Other (75' per Day M-F) Patient and/or Family Agrees t: Yes Time Time In: 1030 Time Out: 1115 DATE: Jan 26, 2023 Total Billed Treatment Time: 45 Total Billed Treatment 1, wc, 2gt Shasha Bansal PT Jan 26, 2023 12:26
[2023-01-26 12:44] VITALS: BP 131/74
[2023-01-26] MEDS ORDERED: RT-ALBUTEROL SULF 2.5 MG/3 ML PRE-MIX VIAL INH PRN (13:00)
--- NOTE | 2023-01-26 14:22 | Speech Therapy Daily Note ---
Speech Daily Progress Note Subjective Date Seen by Provider: Jan 26, 2023 Time Seen by Provider: 12:05 Pt was sitting in bedside chair, waiting for his lunch. Pt's son was present during session. Objective Tx occurred during pt eating his lunch. Pt was presented with SB6 lunch, ate 100% of his meal without fatigue, and only required set-up assistance with meal. Pt demonstrates minimal s/s of aspiration during PO intake. Pt demonstrates cough (x1) after swallow of bolus and pt's vocal quality was clear. REPAIRER HANDTOOLS educates pt regarding safe swallow strategies, slow rate, small bolus size, small sips of thin liquid, and swallowing bolus or drink before the next bite. Pt states un derstanding, however, pt required mod verbal cues to use safe swallow strategies. REPAIRER HANDTOOLS will upgrade pt's diet to regular easy chew at this time. REPAIRER HANDTOOLS has discussed with nrsing that pt's food must be small and bite sized, nrsing states understanding. Speech Half-Way Goals Narcotics And/Or Vice Detective Goals Pt will demonstrate diet upgrade trials without s/s of aspiration during PO intake with 5/5 trials. Pt will demonstrate adequate use of safe swallow strategies to eliminate s/s of laryngeal penetration and/or aspiration of safest, least restrictive diet with cues during 80% of therapeutic trials. Speech-Plan Treatment Plan Speech Therapy Treatment Plan: Continue Plan of Care Treatment Duration: Jan 25, 2023 Frequency: At least 5 of 7 days/Wk (IRF) Estimated Hrs Per Day: .5 hour per day Rehab Potential: Fair Safety Risks/Education Teaching Recipient: Patient Teaching Methods: Discussion Response to Teaching: Verbalize Understanding Education Topics Provided: REPAIRER HANDTOOLS educates pt regrading safe swallow strategies, slow rate, small bolus size, small sips of thin liquid, and swallowing bolus or drink before the next bite. Time Speech Therapy Time In: 12:05 Speech Therapy Time Out: 12:35 DATE: Jan 26, 2023 Total Billed Time: 30 Billed Treatment Time 1 DYST 30 min Evelyn Galeas Jan 26, 2023 14:22
--- NOTE | 2023-01-26 14:41 | Diagnostic Imaging Report ---
EXAMINATION: Chest 1 view HISTORY: Hypoxia COMPARISON: None available. FINDINGS: There are peripheral areas of opacity in both lungs. There is a small left effusion. No pneumothorax. Heart size is normal. IMPRESSION: 1. Peripheral opacities in both lungs with small left effusion concerning for pneumonia. Dictated by: Dictated on workstation # [id number]
--- NOTE | 2023-01-26 14:58 | Occupational Ther Daily Note ---
OT Current Status-Daily Note Subjective Pt received lying supine in bed with spouse at bedside. Pt reporting increased pain in L ear this AM. RN notified. Pt pleasant and agreeable to therapy. Pain Numeric Pain Scale: 6 Location: Left Location Body Site: Ear Pain Description: Ache Mental Status/Objective Patient Orientation: Person, Place, Time, Situation Attachments: IV ADL-Treatment Therapy Code Descriptions/Definitions Functional [place] Measure: 0=Not Assessed/NA 4=Minimal Assistance 1=Total Assistance 5=Supervision or Setup 2=Maximal Assistance 6=Modified [place] 3=Moderate Assistance 7=Complete IndependenceSCALE: Activities may be completed with or without assistive devices. 8-Aacbhfvakx-btkhhsn completes the activity by him/herself with no assistance from a helper. 5-Set-up or Clean-up Assistance-helper sets up or cleans up; patient completes activity. [place] assists only prior to or following the activity. 4-Supervision or Touching Assistance-helper provides verbal cues and/or touching/steadying and/or contact guard assistance as patient completes activity. Assistance may be provided throughout the activity or intermittently. 3-Partial/Moderate Assistance-helper does LESS THAN HALF the effort. [place] lifts, holds or supports trunk or limbs, but provides less than half the effort. 2-Substantial/Maximal Assistance-helper does MORE THAN HALF the effort. [place] lifts or holds trunk or limbs and provides more than half the effort. 3-Zyvlekplp-owownq does ALL the effort. Patient does none of the effort to complete the activity. Or, the assistance of 2 or more helpers is required for the patient to complete the activity. If activity was not attempted, code reason: 7-Patient Refused. 9-Not Applicable-not attempted and the patient did not perform the activity before the current illness, exacerbation or injury. 10-Not Attempted due to Environmental Limitations-(lack of equipment, weather restraints, etc.). 88-Not Attempted due to Medical Conditions or Safety Concerns. Eating (QC): 3 (to drink from large hospital cup and straw) Shower/Bathe Self (QC): 2 (to complete shower, utilizing shower chair) Upper Body Dressing (QC): 2 (to don/doff shirt, pt reports feeling fatigued during activity) Lower Body Dressing (QC): 2 (to don/doff briefs and pants in supine) On/Off Footwear: 1 (to don/doff socks) Other Treatment Pt completed 2 functional transfers from bed to shower chair with FWW and Mod A for strength, requiring additional person to guide hips when descending. Pt demonstrating lateral L lean throughout session, requiring verbal and tactile cues to correct posture. Pt reports that he does not feel like he is leaning, though is able to correct when prompted. Throughout session pt requiring min A to drink from large hospital cup in sitting. Pt completed functional mobility and self propelled wheelchair for ~15ft with cues for large movements and environmental navigation. Educated pt on UE strengthening HEP with yellow thera band and pt demonstrated competence with program, requiring min A for correct positioning. HEP emphasizing shoulder flexion, abduction and adduction; elbow flexion/extension and corporate quality engineer strength. Education OT Patient Education: Correct positioning, Energy conservation, Home exercise program, Instructions to caregiver, Modified ADL techniques, Progress toward Goal/Update tx plan, Purpose of tx/functional activities, Rehab process, Safety issues, Transfer techniques, W/C management Teaching Recipient: Patient, Family Teaching Methods: Demonstration, Discussion Response to Teaching: Verbalize Understanding, Return Demonstration OT Short Term Goals Short Term Goals Time Frame: Feb 05, 2023 Toileting hygiene: 3 Lower body dressin Putting on/taking off footwear: 3 OT Detention Goals Detention Goals Time Frame: Feb 26, 2023 Acute change in mental status: 1 Inattention: 0 Disorganized thinkin Altered level of consciousness: 0 Eating (QC): 6 Oral Hygiene (QC): 6 Toileting Hygiene (QC): 6 Shower/Bathe Self (QC): 6 Upper Body Dressing (QC): 6 Lower Body Dressing (QC): 6 On/Off Footwear (QC): 6 Additional Goals: 1-Demonstrate ADL Tasks, 2-Verbalize Understanding, 3- ImproveStrength/Destinee 1=Demonstrate adherence to instructed precautions during ADL tasks. 2=Patient will verbalize/demonstrate understanding of assistive devices/modifications for ADL. 3=Patient will improve strength/tolerance for activity to enable patient to perform ADL's. OT Education/Plan Problem List/Assessment Assessment: Decreased Activ Tolerance, Decreased Safety Aware, Decreased UE Strength, Impaired Bed Mobility, Impaired Coordination, Impaired Funct Balance, Impaired I ADL's, Impaired Self-Care Skills Discharge Recommendations Plan/Recommendations: Continue POC Treatment Plan/Plan of Care Treatment,Training & Education: Yes Patient would benefit from OT for education, treatment and training to promote independence in ADL's, mobility, safety and/or upper extremity function for ADL's. Plan of Care: ADL Retraining, Functional Mobility, Group Exercise/Act as Ind, UE Funct Exercise/Act Treatment Duration: Feb 26, 2023 Frequency: At least 5 of 7 days/Wk (IRF) Estimated Hrs Per Day: Other (75 mins per day) Agreement: Yes Rehab Potential: Fair Time Start Time: 08:00 Stop Time: 09:30 DATE: Jan 26, 2023 Total Time Billed (hr/min): 90 Billed Treatment Time 1, ADL 4, FA 1, EX, 1 Nahomy Silvestre OTR/L Jan 26, 2023 14:58
[2023-01-26] MEDS ORDERED: HYDR12.56 PO (15:30)
[2023-01-26] MEDS: RT-ALBUTEROL SULF 2.5 MG/3 ML PRE-MIX VIAL INH SCH ×2 (15:44→20:59)
--- NOTE | 2023-01-26 15:55 | Physical Therapy Daily Note ---
PT Daily Note-Current Subjective Patient sitting up in w/c and agreeable to PT this pm. States he ate a good lunch. Pain Section J - Health Conditions 1. Rarely or not at all 2. Occasionally 3. Frequently 4. Almost constantly 8. Unable to answer Pain Effect on Sleep: 1 Pain Interference with Therapy: 1 Pain Interference w/Day-to-Day: 1 Transfers SCALE: Activities may be completed with or without assistive devices. 3-Unekkaomma-exhsein completes the activity by him/herself with no assistance from a helper. 5-Set-up or Clean-up Assistance-helper sets up or cleans up; patient completes activity. [place] assists only prior to or following the activity. 4-Supervision or Touching Assistance-helper provides verbal cues and/or touchi ng/steadying and/or contact guard assistance as patient completes activity. Assistance may be provided throughout the activity or intermittently. 3-Partial/Moderate Assistance-helper does LESS THAN HALF the effort. [place] lifts, holds or supports trunk or limbs, but provides less than half the effort. 2-Substantial/Maximal Assistance-helper does MORE THAN HALF the effort. [place] lifts or holds trunk or limbs and provides more than half the effort. 6-Ywaxisuzv-ijaeei does ALL the effort. Patient does none of the effort to complete the activity. Or, the assistance of 2 or more helpers is required for the patient to complete the activity. If activity was not attempted, code reason: 7-Patient Refused. 9-Not Applicable-not attempted and the patient did not perform the activity before the current illness, exacerbation or injury. 10-Not Attempted due to Environmental Limitations-(lack of equipment, weather restraints, etc.). 88-Not Attempted due to Medical Conditions or Safety Concerns. Sit to Stand (QC): 1 (mod (A) of 2 /c v.c. for hand placement and to scoot to edge of seat first.) Chair/Kam-nk-Qtzfv Xfer(QC): 1 (min(A) of 2 to stand pvt with FWW and cues to turn completely prior to sititng.) Weight Bearing Full Weight Bearing Full Weight Bearing Gait Training Distance: 88', 70' Walk 50 ft with 2 Turns(QC): 1 (min-mod (A) of 2 /c w/c back up and less cues this pm for upright posture vs (L) lean) Wheelchair Training Does the Pt Use a Wheelchair?: Yes W/c propulsion 12' using (B) UE's/LE's out of room /c increased time to complete and cues to watch (R) side/push more with (R) to protect (R) hand -- he has some (R) neglect -- patient put (R) hand in lap and use feet to propel instead of using it to push more. W/C propulsion following Nustep for ~20' over 10' - cues to avoid (R) obstacles - very slow, with significantly increased time to complete. Exercises NuStep Minutes: 8 (Min (A) to get on/off Nustep, but excellent reciprocal motion and anupam while riding Nustep. O2 gee remained 92-94% on 4L O2.) NuStep Workload: 3 PT Marketing Designer Goals Marketing Designer Goals PT Marketing Designer Goals Time Frame: Feb 15, 2023 Roll Left & Right (QC): 4 Sit to Lying (QC): 4 Lying-Sitting on Side/Bed(QC): 4 Sit to Stand (QC): 4 Chair/Kmi-xj-Ytcvo Xfer(QC): 3 Toilet Transfer (QC): 3 Car Transfer (QC): 3 Does the Patient Walk: Yes Walk 10 feet (QC): 3 Walk 50ft with 2 Turns (QC): 3 Walk 150 ft (QC): 3 Walking 10ft on Uneven Surface: 3 1 Step (curb) (QC): 3 4 Steps (QC): 9 12 Steps (QC): 9 Picking up an Object (QC): 3 Does the Pt use WC or Scooter?: Yes Wheel 50 feet with 2 turns (QC: 6 Type: Manual Wheel 150 feet: 6 Type: Manual PT Plan Treatment/Plan Treatment Plan: Continue Plan of Care Treatment Plan: Bed Mobility, Concurrent Therapy, Education, Functional Activity Destinee, Functional Strength, Group Therapy, Gait, Safety, Therapeutic Exercise, Transfers Treatment Duration: Feb 15, 2023 Frequency: At least 5 of 7 days/Wk (IRF) Estimated Hrs Per Day: Other (75' per Day M-F) Patient and/or Family Agrees t: Yes Time Time In: 1430 Time Out: 1510 DATE: Jan 26, 2023 Total Billed Treatment Time: 40 Total Billed Treatment 1, EX, WC, GT Shasha Bansal PT Jan 26, 2023 15:55
[2023-01-26] MEDS: Sulfamethoxazole/Trimethoprim DS TABLET PO SCH (17:14)
[2023-01-26 20:50] VITALS: BP 131/73
[2023-01-26] MEDS: traZODone 50 MG (DESYREL) TAB PO SCH (21:59)
[2023-01-27] MEDS: RT-ALBUTEROL SULF 2.5 MG/3 ML PRE-MIX VIAL INH SCH ×4 (03:11→21:18)
--- NOTE | 2023-01-27 04:56 | PM&R Progress Note ---
Subjective HPI/CC On Admission Date Seen by Provider: Jan 27, 2023 Time Seen by Provider: 13:00 Subjective/Events-last exam 01/27/2023: Patient doing much better Appears to have good spirits today at bedside Bowels evacuated We will maintain bowel regimen No dysphagia currently Lungs are clear Oxygen maintain and weaning down 01/26/2023: Rested well last night Slow walking with therapy and 2 assists but it was strong and dramatic improvement Dysphagia improved CXR residual infiltrates Labs reviewed Potassium 3.4 so will initiate supplement BP stable O2 requirements are 4.0L Bowel regimen will be continued until BM Review of Systems General: Fatigue, Malaise Objective Exam Vital Signs Vital Signs Date Time Temp Pulse Resp B/P (MAP) Pulse Ox O2 Delivery O2 Flow Rate FiO2 01/27/23 15:13 96 Nasal Cannula 2.00 01/27/23 08:00 36.0 86 18 126/77 (93) Capillary Refill : General Appearance: No Apparent Distress, WD/WN, Chronically ill HEENT: PERRL/EOMI, Normal ENT Inspection, Pharynx Normal Neck: Full Range of Motion, Normal Inspection, Non Tender, Supple, Carotid Bruit Respiratory: Chest Non Tender, Lungs Clear, Normal Breath Sounds, No Accessory Muscle Use, No Respiratory Distress, Decreased Breath Sounds Cardiovascular: Regular Rate, Rhythm, No Edema, No Gallop, No JVD, No Murmur, Normal Peripheral Pulses Gastrointestinal: Normal Bowel Sounds, No Organomegaly, No Pulsatile Mass, Non Tender, Soft Back: Normal Inspection, No CVA Tenderness, No Vertebral Tenderness Extremity: Normal Capillary Refill, Normal Inspection, Normal Range of Motion, Non Tender, No Calf Tenderness, No Pedal Edema Neurologic/Psychiatric: Alert, Oriented x3, sales operations director II-XII Norm as Tested, Abnormal Gait, Depressed Affect, Motor Weakness (generalized) Skin: Normal Color, Warm/Dry Lymphatic: No Adenopathy Results/Procedures Lab Patient resulted labs reviewed. FIM Transfers Therapy Code Descriptions/Definitions Functional [place] Measure: 0=Not Assessed/NA 4=Minimal Assistance 1=Total Assistance 5=Supervision or Setup 2=Maximal Assistance 6=Modified [place] 3=Moderate Assistance 7=Complete IndependenceSCALE: Activities may be completed with or without assistive devices. 2-Tpockwmzsh-btlbeot completes the activity by him/herself with no assistance from a helper. 5-Set-up or Clean-up Assistance-helper sets up or cleans up; patient completes activity. [place] assists only prior to or following the activity. 4-Supervision or Touching Assistance-helper provides verbal cues and/or touching/steadying and/or contact guard assistance as patient completes activity. Assistance may be provided throughout the activity or intermittently. 3-Partial/Moderate Assistance-helper does LESS THAN HALF the effort. [place] lifts, holds or supports trunk or limbs, but provides less than half the effort. 2-Substantial/Maximal Assistance-helper does MORE THAN HALF the effort. [place] lifts or holds trunk or limbs and provides more than half the effort. 8-Pyocczrrr-mnkfiy does ALL the effort. Patient does none of the effort to complete the activity. Or, the assistance of 2 or more helpers is required for the patient to complete the activity. If activity was not attempted, code reason: 7-Patient Refused. 9-Not Applicable-not attempted and the patient did not perform the activity before the current illness, exacerbation or injury. 10-Not Attempted due to Environmental Limitations-(lack of equipment, weather restraints, etc.). 88-Not Attempted due to Medical Conditions or Safety Concerns. Roll Left to Right (QC): 1 (max (A) of 2) Sit to Lying (QC): 1 (max (A) of 2) Sit to Stand (QC): 1 (mod (A) of 2 /c v.c. for hand placement and to scoot to edge of seat first.) Chair/Pyv-wn-Girln Xfer(QC): 1 (min(A) of 2 to stand pvt with FWW and cues to turn completely prior to sititng.) Car Transfer (QC): 88 Gait Training Does the Patient Walk?: Yes Distance: 88', 70' Walk 10 feet (QC): 1 (Mod (A) of 2 with w/c back up 64' - leans heavily (L) and needs v.c/v.c/t.c to center self in walker. Walked 135' 2nd attempt with same assist level. 02 with all gait/activity at 4L.) Walk 50 ft with 2 Turns(QC): 1 (min-mod (A) of 2 /c w/c back up and less cues this pm for upright posture vs (L) lean) Walk 150 ft (QC): 88 (unable to reach 150' distance) Walking 10ft/uneven surface-QC: 88 Gait Assistive Device: FWW Wheelchair Training Does the Pt Use a Wheelchair?: Yes Distance: 135' Wheel 50 ft with 2 turns (QC): 4 (cues to use (R) arm more to avoid (R) obstacles, cues for big pushes with both arms. Increased time to complete. Propelled 20' enroute to gym /p gait.) Wheel 150 ft (QC): 88 (unable to reach 150' distance - fatigued) Type of Wheelchair: Manual Stair Training 1 Step (curb) (QC): 88 4 Steps (QC): 88 12 Steps (QC): 88 Balance Picking up an Object (QC): 88 ADL-Treatment Eating (QC): 3 (to drink from large hospital cup and straw) Oral Hygiene (QC): 4 Shower/Bathe Self (QC): 2 (to complete shower, utilizing shower chair) Upper Body Dressing (QC): 2 (to don/doff shirt, pt reports feeling fatigued during activity) Lower Body Dressing (QC): 2 (to don/doff briefs and pants in supine) On/Off Footwear (QC): 1 (to don/doff socks) Toileting Hygiene (QC): 1 (assist x2 required.) Assessment/Plan Assessment and Plan Assess & Plan/Chief Complaint Assessment: Severe debility following aspiration PNA and respiratory arrest s/p intubation Severe progressive Parkinsonism Dyphagia Severe constipation acute on chronic BPH GERD Hypokalemia Severe constipation acute on chronic Plan: Home meds PT OT ST BM regimen 01/26/2023: Nebs O2 Replace potassium BM regimen 01/27/2023: Patient dramatically improved Maintain bowel regimen since bowels have evacuated Increase stamina (1) HAIM Mitchell DO Jan 27, 2023 04:56
--- NOTE | 2023-01-27 04:56 | Individualized Plan of Care ---
Individualized Plan of Care Rehab Nursing IPOC Order Admission Date Jan 25, 2023 at 14:25 Current Orders Orders Admission Order(Inpt,Obs,Sdc) (01/25/23 13:29) Vital Signs: Per Unit Policy ( 08,16,00 (01/25/23 13:29) Pete Crawford ,21 (01/25/23 13:29) Sequential Compression Device [id number] (01/25/23 13:29) [place] Roofer Helper-Inpt Rehab Con (01/25/23 13:29) Rehab Nursing Orders-Ipoc (01/25/23 13:29) Physical Therapy Rehab Orders (01/25/23 13:29) Occupational Therapy Rehab Ord (01/25/23:29) Speech Therapy Rehab Orders (01/25/23:) Cbc And Automated Diff (01/26/23 06:00) Comprehensive Metabolic Panel (01/26/23 06:00) Precautions (Aru) (01/25/23:29) Weekly Weight WEEK (01/25/23 13:29) Rehab-Intensity Of Therapy (01/25/23 13:29) Initiate Admission Nursing Pro .admission (01/25/23 13:29) Calcium Carbonate Chew Tablet (Calcium C (01/25/23 13:30) Diphenhydramine Tablet (Diphenhydramine (01/25/23 13:30) Docusate Sodium Capsule (Docusate Sodium (01/25/23 21:00) Docusate Sodium Capsule (Docusate Sodium (01/25/23 13:30) Bisacodyl Suppository (Bisacodyl Supposi (01/25/23 13:30) Lactulose Oral Solution (Enulose Oral So (01/25/23 13:30) Na Phos/Na Biphos Adult Enema (Na Phos/N (01/25/23 13:30) Guaifenesin/Codeine Syrup (Guaifenesin/C (01/25/23 13:30) Loperamide Capsule (Loperamide Capsule) (01/25/23 13:30) Enoxaparin Injection (Enoxaparin Injecti (01/26/23 09:00) Melatonin Tablet (Melatonin Tablet) (01/25/23 13:30) Polyethylene Glycol Powder (Polyethylen (01/25/23 21:00) Ondansetron Oral Dissolve Tab (Ondanset (01/25/23 13:30) Senna W/Docusate Tablet (Senna W/Docusat (01/25/23 21:00) Acetaminophen Tablet (Acetaminophen Ta (01/25/23 13:30) Initiate Admission Nursing Pro .admission (01/25/23 13:29) Admission Arrival Bed Request (01/25/23 14:34) Sb6: Soft And Bite-Sized (01/25/23 Lunch) Aspirin Chewable Tablet (Aspirin Chewabl (01/26/23 09:00) Carbidopa/Levodopa 25/100 (Carbidopa/Lev (01/25/23 21:00) Trazodone Tablet (Desyrel Tablet) (01/25/23 21:00) (Nf) Lisinopril (01/26/23 09:00) (Nf) Multivitamin (01/26/23 09:00) (Nf) Solifenacin Succinate (01/25/23 21:00) (Nf) Sulfamethoxazole/Trimethoprim (Sulf (01/25/23 21:00) Lisinopril Tablet (Lisinopril Tablet) (01/26/23 09:00) Multivitamin W/Mineral Tablet (Multivita (01/26/23 07:00) Sulfamethoxazole/Tmp Ds Tablet (Sulfamet (01/25/23 18:00) Trospium Tablet (Sanctura Tablet) (01/26/23 06:00) Potassium Bicarb/Cit Acid Tab (Potassium (01/26/23 07:00) Patient Visit (01/25/23 ) Pt Eval Moderate Complexity (01/25/23 ) Functional Activities, Ea 15 (01/25/23 ) Gait Training, Ea 15 Min (01/25/23 ) Wheelchair Mgmt/Propulsn 15min (01/25/23 ) Patient Visit (01/25/23 ) Dysphagia Evaluation Std (01/25/23 ) Chest 1 View, Ap/Pa Only (01/26/23 09:19) Pharmacy Consult/Message (01/26/23 10:30) Carbidopa/Levodopa 25/100 (Carbidopa/Lev (01/26/23 13:00) General/Regular (01/26/23 Lunch) Mat Initiate Protocol (01/26/23 12:53) Albuterol Pre-Mix Nebs (Rt) (Albuterol (01/26/23 15:00) Svn Small Volume Nebulizer (01/26/23 12:53) Albuterol Pre-Mix Nebs (Rt) (Albuterol (01/26/23 13:00) Svn Small Volume Nebulizer (01/26/23 12:53) Patient Visit (01/26/23 ) Dysphagia Therapy (01/26/23 ) Enlive Variety (01/26/23 14:42) Patient Visit (01/26/23 ) Wheelchair Mgmt/Propulsn 15min (01/26/23 ) Gait Training, Ea 15 Min (01/26/23 ) Patient Visit (01/26/23 ) Exercise Therap, Ea 15 Min (01/26/23 ) Wheelchair Mgmt/Propulsn 15min (01/26/23 ) Gait Training, Ea 15 Min (01/26/23 ) Oxygen Delivery Set Up (01/27/23 09:54) Oxygen-Administer 07,19 (01/27/23 09:54) Patient Visit (01/27/23 ) Dysphagia Therapy (01/27/23 ) Rehab Nursing Orders: Ongoing Assess. of Cognitive Status, Ongoing Assess. of Function Status, Bladder Management, Bladder Scan, Bladder Training, Bowel Management, Bowel Training, Disease Management & Educaiton, DVT Prophylaxis, Fall Prevention, Fluid/Electrolyte/Nutrition Mgmt, Infection Prevention, Medication Management & Education, Management of Risks & Complications, Management of Skin Intergrity, Nutrition Management, Pain Management, Patient/Family Support, Safety Management, Swallow Precautions, Weight Bearing Precaution Intensity of Therapy to be met Patient to be seen: Min.3h per day/5 of 7d PT IPOC Problem List: Activity Tolerance, Functional Strength, Safety, Balance, Gait, Transfer, Bed Mobility Treatment Plan: Continue Plan of Care Bed Mobility, Concurrent Therapy, Education, Functional Activity Destinee, Functional Strength, Group Therapy, Gait, Safety, Therapeutic Exercise, Transfers Treatment Duration: Feb 15, 2023 Frequency: At least 5 of 7 days/Wk (IRF) Estimated Hrs Per Day: Other (75' per Day M-F) OT IPOC Problems: Decreased Activ Tolerance, Decreased Safety Aware, Decreased UE Strength, Impaired Bed Mobility, Impaired Coordination, Impaired Funct Balance, Impaired I ADL's, Impaired Self-Care Skills OT Treatment, Training and Edu: Yes Plan of Care: ADL Retraining, Functional Mobility, Group Exercise/Act as Ind, UE Funct Exercise/Act Treatment Duration: Feb 26, 2023 Frequency: At least 5 of 7 days/Wk (IRF) Estimated Hrs Per Day: Other (75 mins per day) [facility] Speech Therapy Treatment Plan: Continue Plan of Care Treatment Duration: Jan 25, 2023 Frequency: At least 5 of 7 days/Wk (IRF) Estimated Hrs Per Day: .5 hour per day [place] Helper/Case Mgmt [place] [employer] Helper/Case Managemen: Discharge Planning Dietitian/Reach Truck Operator Dietitian/Reach Truck Operator to monitor nutritional status and make changes and/or recommendations as needed and work with speech pathology on dietary upgrades as the occur. Physician [facility] Medical Issues being managed closely and that require the 24 hour availability of a physician: Recent catastrophic respiratory arrest with emergent airway required and then intubation with bronchoscopy with subsequent aspiration pneumonia and hypoxia with continued oxygen demands along with delirium and confusion will require close monitoring for lab abnormalities and vital signs variation Medical Issues: Bowel/Bladder Function, DVT Prophylaxis, Falls Precautions, Fluid/Electrolyte/Nutrition Balance, Infection Protection, Pain Management, S wallowing Precautions Brief Synthesis of Preadmission Screen, Post-Admission Evaluation, and Therapy Evaluations: PT and OT will focus on regaining function with use of assistive devices with aggressive physical therapy to increase stamina with ambulation along with speech therapy to work on swallowing techniques to decrease chance of aspiration and occupational therapy to increase ADL independence Medical Prognosis: Good Anticipated Length of Stay: 14 days HAIM PAYNE DO Jan 27, 2023 04:55
[2023-01-27] MEDS: TROSPIUM 20 MG (SANCTURA) TAB PO SCH ×2 (06:16→17:45)
[2023-01-27] MEDS: THERAPEUTIC MULTIVITAMIN W/MINERALS TABLET PO SCH (06:16)
[2023-01-27] MEDS: CARBIDOPA/LEVODOPA 25/100 TABLET PO SCH ×3 (06:17→17:45)
[2023-01-27] MEDS: POTASSIUM BICARB 20 MEQ effervescent TABLET PO SCH (06:18)
[2023-01-27 08:00] VITALS: BP 126/77
[2023-01-27] MEDS: ASPIRIN 81 MG CHEWABLE TABLET PO SCH (08:48)
[2023-01-27] MEDS: DOCUSATE SODIUM 100 MG CAPSULE PO SCH ×2 (08:48→20:27)
[2023-01-27] MEDS: SENNA W/DOCUSATE TABLET PO SCH ×2 (08:48→20:26)
[2023-01-27] MEDS: ENOXAPARIN 40 MG/0.4 ML SYRINGE SC SCH (08:48)
--- NOTE | 2023-01-27 10:59 | Occupational Ther Daily Note ---
OT Current Status-Daily Note Subjective Pt agreeable to OT Tx, requests shower after being incontinent of urine ADL-Treatment Therapy Code Descriptions/Definitions Functional [place] Measure: 0=Not Assessed/NA 4=Minimal Assistance 1=Total Assistance 5=Supervision or Setup 2=Maximal Assistance 6=Modified [place] 3=Moderate Assistance 7=Complete IndependenceSCALE: Activities may be completed with or without assistive devices. 8-Vnolqogccw-cgcbzvh completes the activity by him/herself with no assistance from a helper. 5-Set-up or Clean-up Assistance-helper sets up or cleans up; patient completes activity. [place] assists only prior to or following the activity. 4-Supervision or Touching Assistance-helper provides verbal cues and/or touching/steadying and/or contact guard assistance as patient completes activity. Assistance may be provided throughout the activity or intermittently. 3-Partial/Moderate Assistance-helper does LESS THAN HALF the effort. [place] lifts, holds or supports trunk or limbs, but provides less than half the effort. 2-Substantial/Maximal Assistance-helper does MORE THAN HALF the effort. [place] lifts or holds trunk or limbs and provides more than half the effort. 6-Zmcouqmsm-hewdrd does ALL the effort. Patient does none of the effort to complete the activity. Or, the assistance of 2 or more helpers is required for the patient to complete the activity. If activity was not attempted, code reason: 7-Patient Refused. 9-Not Applicable-not attempted and the patient did not perform the activity before the current illness, exacerbation or injury. 10-Not Attempted due to Environmental Limitations-(lack of equipment, weather restraints, etc.). 88-Not Attempted due to Medical Conditions or Safety Concerns. Shower/Bathe Self (QC): 3 (Assistance with standing balance at [facility] while pt dried buttocks/periarea. Pt able to wash/dry other parts seated on AL. LH sponge provided.) Upper Body Dressing (QC): 3 (Mod A to don due to pt fatigue post shower.) Lower Body Dressing (QC): 2 (CGA doffing pants, VCs for safety. Max A donning.) On/Off Footwear: 2 (Max A doffing. Total assist donning.) Toilet Transfer (QC): 1 (min A x2, VCs for safety with transfer) Other Treatment Pt in recliner, incontinent of urine. Pt stood from recliner, mod A x2. Pt used FWW to transfer into bathroom and onto toilet, min A x2. Pt doffed LB clothes, CGA in stand with GBS/FWW during clothing management. VCs for safety during transfer. He used FWW to transfer to SC. Pt doffed shirt (SBA) and footwear (Max A). Pt completed shower, able to wash all parts seated using LH sponge as needed with SBA. Pt stood at GBS, mod A sit to stand, assistance with standing balance as pt dried buttocks and periarea. Pt donned LB clothing, some assistance to thread BLEs, and some assistance with pant hike (max A overall). Pt donned shirt, requiring VCs for orientation, and mod A with threading UEs/overhead due to fatigue. Total assist donning footwear. Pt used FWW to return to recliner, Min-Mod A x2, VCs for safety. Pt attempted to "butt dive" towards recliner, sitting in recliner without reaching back with UEs, and prior to getting in front of chair completely. Post tx, pt in recliner, call light in reach and all needs met. Education OT Patient Education: Correct positioning, Energy conservation, Modified ADL techniques, Progress toward Goal/Update tx plan, Purpose of tx/functional activities, Rehab process, Safety issues, Transfer techniques, Use of adapted equipment Teaching Recipient: Patient Teaching Methods: Discussion Response to Teaching: Verbalize Understanding, Reinforcement Needed OT Short Term Goals Short Term Goals Time Frame: Feb 05, 2023 Toileting hygiene: 3 Lower body dressin Putting on/taking off footwear: 3 OT Assisted Goals Fitness Consultant Goals Time Frame: Feb 26, 2023 Acute change in mental status: 1 Inattention: 0 Disorganized thinkin Altered level of consciousness: 0 Eating (QC): 6 Oral Hygiene (QC): 6 Toileting Hygiene (QC): 6 Shower/Bathe Self (QC): 6 Upper Body Dressing (QC): 6 Lower Body Dressing (QC): 6 On/Off Footwear (QC): 6 Additional Goals: 1-Demonstrate ADL Tasks, 2-Verbalize Understanding, 3-ImproveStrength/Destinee 1=Demonstrate adherence to instructed precautions during ADL tasks. 2=Patient will verbalize/demonstrate understanding of assistive devices/modifications for ADL. 3=Patient will improve strength/tolerance for activity to enable patient to perform ADL's. OT Education/Plan Problem List/Assessment Assessment: Decreased Activ Tolerance, Decreased UE Strength, Impaired Funct Balance, Impaired I ADL's, Impaired Self-Care Skills Discharge Recommendations Plan/Recommendations: Continue POC Treatment Plan/Plan of Care Patient would benefit from OT for education, treatment and training to promote independence in ADL's, mobility, safety and/or upper extremity function for ADL's. Plan of Care: ADL Retraining, Functional Mobility, Group Exercise/Act as Ind, UE Funct Exercise/Act Treatment Duration: Feb 26, 2023 Frequency: At least 5 of 7 days/Wk (IRF) Estimated Hrs Per Day: Other (75 mins per day) Agreement: Yes Rehab Potential: Fair Time Start Time: 09:45 Stop Time: 10:45 DATE: Jan 27, 2023 Total Time Billed (hr/min): 60 Billed Treatment Time 1, ADL 4 RENÉ ESQUIVEL OT Jan 27, 2023 10:58
--- NOTE | 2023-01-27 11:23 | Physical Therapy Daily Note ---
PT Daily Note-Current Subjective No new complaints today. Agreeable to work with PT. Pain Section J - Health Conditions 1. Rarely or not at all 2. Occasionally 3. Frequently 4. Almost constantly 8. Unable to answer Pain Effect on Sleep: 1 Pain Interference with Therapy: 1 Pain Interference w/Day-to-Day: 1 Mental Status Attachments: Oxygen O2 at 2.5L in room. Used 3L on portable tank during therapy. Transfers SCALE: Activities may be completed with or without assistive devices. 5-Bpfetiptbc-yoqwtjj completes the activity by him/herself with no assistance from a helper. 5-Set-up or Clean-up Assistance-helper sets up or cleans up; patient completes activity. [place] assists only prior to or following the activity. 4-Supervision or Touching Assistance-helper provides verbal cues and/or touching/steadying and/or contact guard assistance as patient completes activity. Assistance may be provided throughout the activity or intermittently. 3-Partial/Moderate Assistance-helper does LESS THAN HALF the effort. [place] lifts, holds or supports trunk or limbs, but provides less than half the effort. 2-Substantial/Maximal Assistance-helper does MORE THAN HALF the effort. [place] lifts or holds trunk or limbs and provides more than half the effort. 5-Npjlhazzp-wgaqap does ALL the effort. Patient does none of the effort to complete the activity. Or, the assistance of 2 or more helpers is required for the patient to complete the activity. If activity was not attempted, code reason: 7-Patient Refused. 9-Not Applicable-not attempted and the patient did not perform the activity be fore the current illness, exacerbation or injury. 10-Not Attempted due to Environmental Limitations-(lack of equipment, weather restraints, etc.). 88-Not Attempted due to Medical Conditions or Safety Concerns. Sit to Stand (QC): 1 (mod (A) of 1-2) Chair/Syj-qt-Wukxj Xfer(QC): 1 (mod (A) of 1-2) Weight Bearing Full Weight Bearing Full Weight Bearing Gait Training Walk 50 ft with 2 Turns(QC): 1 (135' x 2 min-mod (A) of 2 /c w/c back up. 1 LOB while walking back to room that resulting in needing mod (A) of 2 to correct. ) Gait Assistive Device: FWW Exercises Standing ex in // bars: high knee march (B) x 15 min (A), heel/toes up x 10 min (A), hip flexion(/c knee extension) alternating legs mod (A). NuStep Minutes: 12 NuStep Workload: 3 (O2 sats 92% during Nustep /c O2 at 3L.) PT Bedspread Folder Goals Mcfp Goals PT Mcfp Goals Time Frame: Feb 15, 2023 Roll Left & Right (QC): 4 Sit to Lying (QC): 4 Lying-Sitting on Side/Bed(QC): 4 Sit to Stand (QC): 4 Chair/Tbe-ll-Wfohc Xfer(QC): 3 Toilet Transfer (QC): 3 Car Transfer (QC): 3 Does the Patient Walk: Yes Walk 10 feet (QC): 3 Walk 50ft with 2 Turns (QC): 3 Walk 150 ft (QC): 3 Walking 10ft on Uneven Surface: 3 1 Step (curb) (QC): 3 4 Steps (QC): 9 12 Steps (QC): 9 Picking up an Object (QC): 3 Does the Pt use WC or Scooter?: Yes Wheel 50 feet with 2 turns (QC: 6 Type: Manual Wheel 150 feet: 6 Type: Manual PT Plan Treatment/Plan Treatment Plan: Continue Plan of Care Treatment Plan: Bed Mobility, Concurrent Therapy, Education, Functional Activity [place], Functional Strength, Group Therapy, Gait, Safety, Therapeutic Exercise, Transfers Treatment Duration: Feb 15, 2023 Frequency: At least 5 of 7 days/Wk (IRF) Estimated Hrs Per Day: Other (75' per Day M-F) Patient and/or Family Agrees t: Yes Time Time In: 845 Time Out: 930 DATE: Jan 27, 2023 Total Billed Treatment Time: 45 Total Billed Treatment 1, GT, 2EX Shasha Bansal PT Jan 27, 2023 11:23
--- NOTE | 2023-01-27 13:58 | Speech Therapy Daily Note ---
Speech Daily Progress Note Subjective Date Seen by Provider: Jan 27, 2023 Time Seen by Provider: 12:00 Pt was sitting in bedside chair upon FIBERGLASS ROVING WINDER arrival. was present, but left to get lunch. Objective Pt was presented with Regular Easy Chew lunch and thin liquids. Pt demonstrates minimal s/s of aspiration, cough x2 after swallow of bolus. Pt requires consistent verbal cues to use safe swallow strategies, one bite at a time, small bite/sips, clearing oral cavity before next bite. FIBERGLASS ROVING WINDER has written strategies on board and will print out guidelines for his table for all meals. Pt requires set up assistance and food to be cut into small pieces. Speech Surgical Coordinator Goals Surgical Coordinator Goals Pt will demonstrate diet upgrade trials without s/s of aspiration during PO intake with 5/5 trials. Pt will demonstrate adequate use of safe swallow strategies to eliminate s/s of laryngeal penetration and/or aspiration of safest, least restrictive diet with cues during 80% of therapeutic trials. Speech-Plan Treatment Plan Speech Therapy Treatment Plan: Continue Plan of Care Treatment Duration: Jan 25, 2023 Frequency: At least 5 of 7 days/Wk (IRF) Estimated Hrs Per Day: .5 hour per day Rehab Potential: Fair Time Speech Therapy Time In: 12:00 Speech Therapy Time Out: 12:30 DATE: Jan 27, 2023 Total Billed Time: 30 Billed Treatment Time 1 DYST 30 min Evelyn Galeas Jan 27, 2023 13:58
--- NOTE | 2023-01-27 16:03 | Therapy Group Daily Note ---
Therapy Daily Group Note Patient Education Topic Other List Below (Memory) Exercises LE Seated Exercise, UE Exercise Session Ratio (pt:therapist): 3:1 Goal of Session: Memory Strategies, UE/LE Strengthing Goal Met for this Session: Yes Pt Benefit of Group: Contributions to Others, F/U Use of Strategies @Home, Increased Functional Safety, Increased Functional Strength, Improved Cognition, Recognition of Peers, Socialization Other/Notes Pt transported via w/c to OT/PT group in therapy gym. Group consisted of introductions(name, place living, Thanksgiving family traditions), socializati on, B UE/LE seated exercises, education and activities on memory strategies. Pt introduced self appropriately and actively listened to peers. Pt able to complete B UE seated exercises with encouragement and modifications due to limited ROM and fatigue. Pt participated in activities and demonstrated understanding of memory education by vocalizing own strategies. After therapy, pt returned to room to rest in bed. All needs met. Start Time: 13:00 Stop Time: 14:15 Total Billed Treatment Time: 75 Total Billed Treatment 1, NIKKIE KAVIN KAYE SOFTWARE TECHNICAL LEAD Jan 27, 2023 16:03
[2023-01-27] MEDS: Sulfamethoxazole/Trimethoprim DS TABLET PO SCH (17:45)
[2023-01-27 20:01] VITALS: BP 118/58
[2023-01-27] MEDS: ACETAMINOPHEN 325 MG TABLET PO PRN (20:27)
[2023-01-27] MEDS: MELATONIN 3 MG TABLET PO PRN (20:27)
[2023-01-27] MEDS: traZODone 50 MG (DESYREL) TAB PO SCH (20:27)
[2023-01-27] MEDS ORDERED: RT-ALBUTEROL SULF 2.5 MG/3 ML PRE-MIX VIAL INH PRN (21:30)
[2023-01-28] MEDS: THERAPEUTIC MULTIVITAMIN W/MINERALS TABLET PO SCH (06:13)
[2023-01-28] MEDS: CARBIDOPA/LEVODOPA 25/100 TABLET PO SCH ×3 (06:14→17:03)
[2023-01-28] MEDS: POTASSIUM BICARB 20 MEQ effervescent TABLET PO SCH (06:14)
[2023-01-28] MEDS: TROSPIUM 20 MG (SANCTURA) TAB PO SCH ×2 (06:14→15:25)
[2023-01-28] MEDS: ACETAMINOPHEN 325 MG TABLET PO PRN ×2 (06:22→15:25)
[2023-01-28 08:00] VITALS: BP 133/75
[2023-01-28] MEDS: ENOXAPARIN 40 MG/0.4 ML SYRINGE SC SCH (08:34)
[2023-01-28] MEDS: SENNA W/DOCUSATE TABLET PO SCH ×2 (08:34→19:45)
[2023-01-28] MEDS: ASPIRIN 81 MG CHEWABLE TABLET PO SCH (08:34)
[2023-01-28] MEDS: DOCUSATE SODIUM 100 MG CAPSULE PO SCH ×2 (08:35→19:45)
--- NOTE | 2023-01-28 08:42 | PM&R Progress Note ---
Subjective HPI/CC On Admission Date Seen by Provider: Jan 28, 2023 Time Seen by Provider: 12:00 Subjective/Events-last exam 01/28/2023: Patient dramatically improved Slow recovery still remains No falls No pain Weaning oxygen Son at bedside 01/27/2023: Patient doing much better Appears to have good spirits today at bedside Bowels evacuated We will maintain bowel regimen No dysphagia currently Lungs are clear Oxygen maintain and weaning down 01/26/2023: Rested well last night Slow walking with therapy and 2 assists but it was strong and dramatic improvement Dysphagia improved CXR residual infiltrates Labs reviewed Potassium 3.4 so will initiate supplement BP stable O2 requirements are 4.0L Bowel regimen will be continued until BM Review of Systems General: Fatigue, Malaise Objective Exam Vital Signs Vital Signs Date Time Temp Pulse Resp B/P (MAP) Pulse Ox O2 Delivery O2 Flow Rate FiO2 01/28/23 20:15 NIV CPAP 2.00 01/28/23 20:08 36.2 84 20 123/58 (79) 92 Capillary Refill : General Appearance: No Apparent Distress, WD/WN, Chronically ill HEENT: PERRL/EOMI, Normal ENT Inspection, Pharynx Normal Neck: Full Range of Motion, Normal Inspection, Non Tender, Supple, Carotid Bruit Respiratory: Chest Non Tender, Lungs Clear, Normal Breath Sounds, No Accessory Muscle Use, No Respiratory Distress, Decreased Breath Sounds Cardiovascular: Regular Rate, Rhythm, No Edema, No Gallop, No JVD, No Murmur, Normal Peripheral Pulses Gastrointestinal: Normal Bowel Sounds, No Organomegaly, No Pulsatile Mass, Non Tender, Soft Back: Normal Inspection, No CVA Tenderness, No Vertebral Tenderness Extremity: Normal Capillary Refill, Normal Inspection, Normal Range of Motion, Non Tender, No Calf Tenderness, No Pedal Edema Neurologic/Psychiatric: Alert, Oriented x3, econometrics professor II-XII Norm as Tested, Abnormal Gait, Depressed Affect, Motor Weakness (generalized) Skin: Normal Color, Warm/Dry Lymphatic: No Adenopathy Results/Procedures Lab Patient resulted labs reviewed. FIM Transfers Therapy Code Descriptions/Definitions Functional [place] Measure: 0=Not Assessed/NA 4=Minimal Assistance 1=Total Assistance 5=Supervision or Setup 2=Maximal Assistance 6=Modified [place] 3=Moderate Assistance 7=Complete IndependenceSCALE: Activities may be completed with or without assistive devices. 1-Cbauqqjrwd-dobulsl completes the activity by him/herself with no assistance from a helper. 5-Set-up or Clean-up Assistance-helper sets up or cleans up; patient completes activity. [place] assists only prior to or following the activity. 4-Supervision or Touching Assistance-helper provides verbal cues and/or touching/steadying and/or contact guard assistance as patient completes activity. Assistance may be provided throughout the activity or intermittently. 3-Partial/Moderate Assistance-helper does LESS THAN HALF the effort. [place] lifts, holds or supports trunk or limbs, but provides less than half the effort. 2-Substantial/Maximal Assistance-helper does MORE THAN HALF the effort. [place] lifts or holds trunk or limbs and provides more than half the effort. 8-Prpbitire-kpbeyi does ALL the effort. Patient does none of the effort to complete the activity. Or, the assistance of 2 or more helpers is required for the patient to complete the activity. If activity was not attempted, code reason: 7-Patient Refused. 9-Not Applicable-not attempted and the patient did not perform the activity before the current illness, exacerbation or injury. 10-Not Attempted due to Environmental Limitations-(lack of equipment, weather restraints, etc.). 88-Not Attempted due to Medical Conditions or Safety Concerns. Roll Left to Right (QC): 1 (max (A) of 2) Sit to Lying (QC): 1 (max (A) of 2) Sit to Stand (QC): 1 (mod (A) of 1-2) Chair/Fqk-et-Oxlqc Xfer(QC): 1 (mod (A) of 1-2) Car Transfer (QC): 88 Gait Training Does the Patient Walk?: Yes Distance: 88', 70' Walk 10 feet (QC): 1 (Mod (A) of 2 with w/c back up 64' - leans heavily (L) and needs v.c/v.c/t.c to center self in walker. Walked 135' 2nd attempt with same assist level. 02 with all gait/activity at 4L.) Walk 50 ft with 2 Turns(QC): 1 (135' x 2 min-mod (A) of 2 /c w/c back up. 1 LOB while walking back to room that resulting in needing mod (A) of 2 to correct. ) Walk 150 ft (QC): 88 (unable to reach 150' distance) Walking 10ft/uneven surface-QC: 88 Gait Assistive Device: FWW Wheelchair Training Does the Pt Use a Wheelchair?: Yes Distance: 135' Wheel 50 ft with 2 turns (QC): 4 (cues to use (R) arm more to avoid (R) obstacles, cues for big pushes with both arms. Increased time to complete. Propelled 20' enroute to gym /p gait.) Wheel 150 ft (QC): 88 (unable to reach 150' distance - fatigued) Type of Wheelchair: Manual Stair Training 1 Step (curb) (QC): 88 4 Steps (QC): 88 12 Steps (QC): 88 Balance Picking up an Object (QC): 88 ADL-Treatment Eating (QC): 3 (to drink from large hospital cup and straw) Oral Hygiene (QC): 4 Shower/Bathe Self (QC): 3 (Assistance with standing balance at [facility] while pt dried buttocks/periarea. Pt able to wash/dry other parts seated on UT. LH sponge provided.) Upper Body Dressing (QC): 3 (Mod A to don due to pt fatigue post shower.) Lower Body Dressing (QC): 2 (CGA doffing pants, VCs for safety. Max A donning.) On/Off Footwear (QC): 2 (Max A doffing. Total assist donning.) Toileting Hygiene (QC): 1 (assist x2 required.) Toilet Transfer (QC): 1 (min A x2, VCs for safety with transfer) Assessment/Plan Assessment and Plan Assess & Plan/Chief Complaint Assessment: Severe debility following aspiration PNA and respiratory arrest s/p intubation Severe progressive Parkinsonism Dyphagia Severe constipation acute on chronic BPH GERD Hypokalemia Severe constipation acute on chronic Plan: Home meds PT OT ST BM regimen 01/28/2023: 01/26/2023: Nebs O2 Replace potassium BM regimen 01/27/2023: Patient dramatically improved Maintain bowel regimen since bowels have evacuated Increase stamina 01/28/2023: Patient dramatically improved Continue aggressive rehab (1) HAIM Mitchell DO Jan 28, 2023 08:42
--- NOTE | 2023-01-28 12:48 | Physical Therapy Daily Note ---
PT Daily Note-Current Subjective Patient states he is working on a living trust that he has to have completed by the end of the month (working on the paperwork in bed this a.m.). No c/o pain. Pain Section J - Health Conditions 1. Rarely or not at all 2. Occasionally 3. Frequently 4. Almost constantly 8. Unable to answer Pain Effect on Sleep: 1 Pain Interference with Therapy: 1 Pain Interference w/Day-to-Day: 1 Transfers SCALE: Activities may be completed with or without assistive devices. 1-Cflbmpiojj-bsvakki completes the activity by him/herself with no assistance from a helper. 5-Set-up or Clean-up Assistance-helper sets up or cleans up; patient completes activity. [place] assists only prior to or following the activity. 4-Supervision or Touching Assistance-helper provides verbal cues and/or touching/steadying and/or contact guard assistance as patient completes activity. Assistance may be provided throughout the activity or intermittently. 3-Partial/Moderate Assistance-helper does LESS THAN HALF the effort. [place] lifts, holds or supports trunk or limbs, but provides less than half the effort. 2-Substantial/Maximal Assistance-helper does MORE THAN HALF the effort. [place] lifts or holds trunk or limbs and provides more than half the effort. 8-Ifzrcwcyn-bzhhoz does ALL the effort. Patient does none of the effort to complete the activity. Or, the assistance of 2 or more helpers is required for the patient to complete the activity. If activity was not attempted, code reason: 7-Patient Refused. 9-Not Applicable-not attempted and the patient did not perform the activity before the current illness, exacerbation or injury. 10-Not Attempted due to Environmental Limitations-(lack of equipment, weather restraints, etc.). 88-Not Attempted due to Medical Conditions or Safety Concerns. Lying to Sitting/Side of Bed(Q: 3 (mod (A) of 1 /c max cues and padding removed from bed rail so that patient could grasp it) Sit to Stand (QC): 3 (mod (A) of 1 from EOB while tech helped pull up pants. (was max (A) to don pants in sitting).) Chair/Uld-ae-Ivdib Xfer(QC): 3 (min-mod (A) of 1 /c v.c. and FWW and mod (A) to control descent to chair.) Weight Bearing Full Weight Bearing Full Weight Bearing Gait Training Walk 50 ft with 2 Turns(QC): 1 (mod (A) of 1 /c 2nd (A) person for O2 tank /c FWW, 135' x 2. Improved anupam 2nd attempt following core exercise on mat.) Gait Persons Needed: 2 Neuromuscular Seated balance work on redd mat.: ball raise/lower with gaze following x 10 reps, ball (R)/(L) with gaze following x 10 reps (B). Seated on DynaDisc ball raise/lower with gaze following x 10 reps, ball (R)/(L) with gaze following x 10 reps (B). Cone reach and place from various heights and distances (R) to (L) while sitting on Paulette Disk. Seated lumbar extension against blue theraband while sitting on DynaDisc x 20 for core/seated balance exercise. PT Therapeutic Recreation Assistant Goals Therapeutic Recreation Assistant Goals PT Therapeutic Recreation Assistant Goals Time Frame: Feb 15, 2023 Roll Left & Right (QC): 4 Sit to Lying (QC): 4 Lying-Sitting on Side/Bed(QC): 4 Sit to Stand (QC): 4 Chair/Alb-ri-Vjvew Xfer(QC): 3 Toilet Transfer (QC): 3 Car Transfer (QC): 3 Does the Patient Walk: Yes Walk 10 feet (QC): 3 Walk 50ft with 2 Turns (QC): 3 Walk 150 ft (QC): 3 Walking 10ft on Uneven Surface: 3 1 Step (curb) (QC): 3 4 Steps (QC): 9 12 Steps (QC): 9 Picking up an Object (QC): 3 Does the Pt use WC or Scooter?: Yes Wheel 50 feet with 2 turns (QC: 6 Type: Manual Wheel 150 feet: 6 Type: Manual PT Plan Treatment/Plan Treatment Plan: Continue Plan of Care Treatment Plan: Bed Mobility, Concurrent Therapy, Education, Functional Activity [place], Functional Strength, Group Therapy, Gait, Safety, Therapeutic Exercise, Transfers Treatment Duration: Feb 15, 2023 Frequency: At least 5 of 7 days/Wk (IRF) Estimated Hrs Per Day: Other (75' per Day M-F) Patient and/or Family Agrees t: Yes Time Time In: 845 Time Out: 930 DATE: Jan 28, 2023 Total Billed Treatment Time: 45 Total Billed Treatment 1, FA, GT, NM Shasha Bansal PT Jan 28, 2023 12:48
--- NOTE | 2023-01-28 13:39 | Speech Therapy Daily Note ---
Speech Daily Progress Note Subjective Date Seen by Provider: Jan 28, 2023 Time Seen by Provider: 12:00 Pt was sitting in bedside chair with his lunch tray, son was present during session. Objective Pt continues to tolerate current diet and thin liquids. Pt demonstrates no s/s of aspiration during PO intake. Pt requires visual cues for safe swallow strategies, JEWEL SAWYER placed visual reminder behind tray for pt to refer to. With visual reminder, pt was able to follow safe swallow strategies. Assessment Assessment Current Status: Good Progress Treatment Plan Continue Plan of Care Speech Advertising Assistant Goals Advertising Assistant Goals Pt will demonstrate diet upgrade trials without s/s of aspiration during PO intake with 5/5 trials. Pt will demonstrate adequate use of safe swallow strategies to eliminate s/s of laryngeal penetration and/or aspiration of safest, least restrictive diet with cues during 80% of therapeutic trials. Speech-Plan Patient/Family Goals Patient/Family Goals: Pt would like to leave next week. Treatment Plan Speech Therapy Treatment Plan: Continue Plan of Care Treatment Duration: Jan 25, 2023 Frequency: At least 5 of 7 days/Wk (IRF) Estimated Hrs Per Day: .5 hour per day Rehab Potential: Good Safety Risks/Education Teaching Recipient: Patient Teaching Methods: Handout Response to Teaching: Verbalize Understanding Education Topics Provided: Safe swallow strategies, with visual reminder Time Speech Therapy Time In: 12:00 Speech Therapy Time Out: 12:30 DATE: Jan 28, 2023 Total Billed Time: 30 Billed Treatment Time 1 SLTS 30 min Evelyn Galeas Jan 28, 2023 13:39
--- NOTE | 2023-01-28 14:22 | Occupational Ther Daily Note ---
OT Current Status-Daily Note Subjective Pt. alert sitting in recliner. No c/o pain. Pt. agreed to therapy. Mental Status/Objective Patient Orientation: Person, Place, Time, Situation ADL-Treatment Therapy Code Descriptions/Definitions Functional [place] Measure: 0=Not Assessed/NA 4=Minimal Assistance 1=Total Assistance 5=Supervision or Setup 2=Maximal Assistance 6=Modified [place] 3=Moderate Assistance 7=Complete IndependenceSCALE: Activities may be completed with or without assistive devices. 1-Jxxqnnjzlp-ljqhlny completes the activity by him/herself with no assistance fr om a helper. 5-Set-up or Clean-up Assistance-helper sets up or cleans up; patient completes activity. [place] assists only prior to or following the activity. 4-Supervision or Touching Assistance-helper provides verbal cues and/or touching/steadying and/or contact guard assistance as patient completes activity. Assistance may be provided throughout the activity or intermittently. 3-Partial/Moderate Assistance-helper does LESS THAN HALF the effort. [place] lifts, holds or supports trunk or limbs, but provides less than half the effort. 2-Substantial/Maximal Assistance-helper does MORE THAN HALF the effort. [place] lifts or holds trunk or limbs and provides more than half the effort. 7-Admmjldtn-mnevyv does ALL the effort. Patient does none of the effort to complete the activity. Or, the assistance of 2 or more helpers is required for the patient to complete the activity. If activity was not attempted, code reason: 7-Patient Refused. 9-Not Applicable-not attempted and the patient did not perform the activity before the current illness, exacerbation or injury. 10-Not Attempted due to Environmental Limitations-(lack of equipment, weather restraints, etc.). 88-Not Attempted due to Medical Conditions or Safety Concerns. Other Treatment Pt seated in recliner, mod A x2. Mod A x1 transfer from recliner to w/c using FWW. Pt propelled w/c to therapy gym, SBA. Pt. given HEP and completed B UE exercises using light resistance theraband 6 exercises 1 set of 10 reps. Skilled techniques and modifications to increase strength for daily task as needed. Pt completed arm bike x10 mins, min-mod resistance, no rest breaks. Pt. completed dynamic sitting activities to increase endurance, strengthening, ROM, and regional cra. Pt propelled w/c back to his room. After session, pt in recliner, call light in reach and all needs met. Education OT Patient Education: Energy conservation, Exercise program, Home exercise program, Purpose of tx/functional activities Teaching Recipient: Patient Teaching Methods: Demonstration, Handout, Discussion Response to Teaching: Verbalize Understanding, Return Demonstration OT Short Term Goals Short Term Goals Time Frame: Feb 05, 2023 Toileting hygiene: 3 Lower body dressin Putting on/taking off footwear: 3 OT Assisted Goals Engineering Operator Goals Time Frame: Feb 26, 2023 Acute change in mental status: 1 Inattention: 0 Disorganized thinkin Altered level of consciousness: 0 Eating (QC): 6 Oral Hygiene (QC): 6 Toileting Hygiene (QC): 6 Shower/Bathe Self (QC): 6 Upper Body Dressing (QC): 6 Lower Body Dressing (QC): 6 On/Off Footwear (QC): 6 Additional Goals: 1-Demonstrate ADL Tasks, 2-Verbalize Understanding, 3- ImproveStrength/Destinee 1=Demonstrate adherence to instructed precautions during ADL tasks. 2=Patient will verbalize/demonstrate understanding of assistive devices/modifications for ADL. 3=Patient will improve strength/tolerance for activity to enable patient to perform ADL's. OT Education/Plan Problem List/Assessment Assessment: Decreased Activ Tolerance, Decreased Safety Aware, Decreased UE Strength, Impaired Funct Balance, Impaired I ADL's, Impaired Self-Care Skills Discharge Recommendations Plan/Recommendations: Continue POC Treatment Plan/Plan of Care Patient would benefit from OT for education, treatment and training to promote independence in ADL's, mobility, safety and/or upper extremity function for ADL's. Plan of Care: ADL Retraining, Functional Mobility, Group Exercise/Act as Ind, UE Funct Exercise/Act Treatment Duration: Feb 26, 2023 Frequency: At least 5 of 7 days/Wk (IRF) Estimated Hrs Per Day: Other (75 mins per day) Agreement: Yes Rehab Potential: Good Time Start Time: 13:00 Stop Time: 14:15 DATE: Jan 28, 2023 Total Time Billed (hr/min): 75 Billed Treatment Time 1 visit- EX 1 (15 mins) FA 4 (60 mins) RENÉ ESQUIVEL OT Jan 28, 2023 14:21
--- NOTE | 2023-01-28 16:50 | Physical Therapy Daily Note ---
PT Daily Note-Current Subjective Patient states his chest hurts when he coughs - discussed pneumonia. Pain Section J - Health Conditions 1. Rarely or not at all 2. Occasionally 3. Frequently 4. Almost constantly 8. Unable to answer Pain Effect on Sleep: 1 Pain Interference with Therapy: 1 Pain Interference w/Day-to-Day: 1 Transfers SCALE: Activities may be completed with or without assistive devices. 0-Alicimclqo-xngtafb completes the activity by him/herself with no assistance from a helper. 5-Set-up or Clean-up Assistance-helper sets up or cleans up; patient completes activity. [place] assists only prior to or following the activity. 4-Supervision or Touching Assistance-helper provides verbal cues and/or touching/steadying and/or contact guard assistance as patient completes activity. Assistance may be provided throughout the activity or intermittently. 3-Partial/Moderate Assistance-helper does LESS THAN HALF the effort. [place] lifts, holds or supports trunk or limbs, but provides less than half the effort. 2-Substantial/Maximal Assistance-helper does MORE THAN HALF the effort. [place] lifts or holds trunk or limbs and provides more than half the effort. 6-Gwrazpiik-ozgkpp does ALL the effort. Patient does none of the effort to complete the activity. Or, the assistance of 2 or more helpers is required for the patient to complete the activity. If activity was not attempted, code reason: 7-Patient Refused. 9-Not Applicable-not attempted and the patient did not perform the activity before the current illness, exacerbation or injury. 10-Not Attempted due to Environmental Limitations-(lack of equipment, weather restraints, etc.). 88-Not Attempted due to Medical Conditions or Safety Concerns. Sit to Lying (QC): 1 (mod-max (A) of 2 (lifting both legs and positioning trunk).) Sit to Stand (QC): 2 (varied this pm from mod (A) of 1 from recliner, max (A) of 1 from Nustep, and min (A) of 1 from redd mat. Sit>stand to FWW.) Chair/Riv-hs-Spfrj Xfer(QC): 3 (mod (A) of 1 /c FWW - dove for Nustep after walking to gym requiring mod (A) to ensure he made it to seat surface.) Weight Bearing Full Weight Bearing Full Weight Bearing Gait Training Does the Patient Walk?: Yes Walk 50 ft with 2 Turns(QC): 1 (mod (A) of 1 /c second person for O2 tank, no w/c follow this pm. Ambulated 135' x 2. 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 Alt legs with bed step out to side simultaneously with ipsilateral arm reach x 10. Big reach up then down to floor x 10. Assessment Current Status: Good Progress PT Custodial Goals Manager Of Purchasing Goals PT Custodial Goals Time Frame: Feb 15, 2023 Roll Left & Right (QC): 4 Sit to Lying (QC): 4 Lying-Sitting on Side/Bed(QC): 4 Sit to Stand (QC): 4 Chair/Dxq-sg-Mcjbe Xfer(QC): 3 Toilet Transfer (QC): 3 Car Transfer (QC): 3 Does the Patient Walk: Yes Walk 10 feet (QC): 3 Walk 50ft with 2 Turns (QC): 3 Walk 150 ft (QC): 3 Walking 10ft on Uneven Surface: 3 1 Step (curb) (QC): 3 4 Steps (QC): 9 12 Steps (QC): 9 Picking up an Object (QC): 3 Does the Pt use WC or Scooter?: Yes Wheel 50 feet with 2 turns (QC: 6 Type: Manual Wheel 150 feet: 6 Type: Manual PT Plan Treatment/Plan Treatment Plan: Continue Plan of Care Treatment Plan: Bed Mobility, Concurrent Therapy, Education, Functional Activity [place], Functional Strength, Group Therapy, Gait, Safety, Therapeutic Exercise, Transfers Treatment Duration: Feb 15, 2023 Frequency: At least 5 of 7 days/Wk (IRF) Estimated Hrs Per Day: Other (75' per Day M-F) Patient and/or Family Agrees t: Yes Time Time In: 1425 Time Out: 1505 DATE: Jan 28, 2023 Total Billed Treatment Time: 40 Total Billed Treatment 1, GT, EX, NM Shasha Bansal PT Jan 28, 2023 16:50
[2023-01-28] MEDS: Sulfamethoxazole/Trimethoprim DS TABLET PO SCH (17:03)
[2023-01-28] MEDS: traZODone 50 MG (DESYREL) TAB PO SCH (19:45)
[2023-01-28] MEDS: MELATONIN 3 MG TABLET PO PRN (19:45)
[2023-01-28 20:08] VITALS: BP 123/58
--- NOTE | 2023-01-29 05:26 | PM&R Progress Note ---
Subjective HPI/CC On Admission Date Seen by Provider: Jan 29, 2023 Time Seen by Provider: 12:00 Subjective/Events-last exam 01/29/2023: Patient dramatically improved Moving around much better No BM but taking bowel regimen No falls Lungs are clear 01/28/2023: Patient dramatically improved Slow recovery still remains No falls No pain Weaning oxygen Son at bedside 01/27/2023: Patient doing much better Appears to have good spirits today at bedside Bowels evacuated We will maintain bowel regimen No dysphagia currently Lungs are clear Oxygen maintain and weaning down 01/26/2023: Rested well last night Slow walking with therapy and 2 assists but it was strong and dramatic improvement Dysphagia improved CXR residual infiltrates Labs reviewed Potassium 3.4 so will initiate supplement BP stable O2 requirements are 4.0L Bowel regimen will be continued until BM Review of Systems General: Fatigue, Malaise Objective Exam Vital Signs Vital Signs Date Time Temp Pulse Resp B/P (MAP) Pulse Ox O2 Delivery O2 Flow Rate FiO2 01/29/23 21:03 36.7 70 20 126/60 (82) 95 Nasal Cannula 2.00 Capillary Refill : General Appearance: No Apparent Distress, WD/WN, Chronically ill HEENT: PERRL/EOMI, Normal ENT Inspection, Pharynx Normal Neck: Full Range of Motion, Normal Inspection, Non Tender, Supple, Carotid Bruit Respiratory: Chest Non Tender, Lungs Clear, Normal Breath Sounds, No Accessory Muscle Use, No Respiratory Distress, Decreased Breath Sounds Cardiovascular: Regular Rate, Rhythm, No Edema, No Gallop, No JVD, No Murmur, Normal Peripheral Pulses Gastrointestinal: Normal Bowel Sounds, No Organomegaly, No Pulsatile Mass, Non Tender, Soft Back: Normal Inspection, No CVA Tenderness, No Vertebral Tenderness Extremity: Normal Capillary Refill, Normal Inspection, Normal Range of Motion, Non Tender, No Calf Tenderness, No Pedal Edema Neurologic/Psychiatric: Alert, Oriented x3, 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 FIM Transfers Therapy Code Descriptions/Definitions Functional [place] Measure: 0=Not Assessed/NA 4=Minimal Assistance 1=Total Assistance 5=Supervision or Setup 2=Maximal Assistance 6=Modified [place] 3=Moderate Assistance 7=Complete IndependenceSCALE: Activities may be completed with or without assistive devices. 5-Erddevogfp-otukikt completes the activity by him/herself with no assistance from a helper. 5-Set-up or Clean-up Assistance-helper sets up or cleans up; patient completes activity. [place] assists only prior to or following the activity. 4-Supervision or Touching Assistance-helper provides verbal cues and/or touching/steadying and/or contact guard assistance as patient completes activity. Assistance may be provided throughout the activity or intermittently. 3-Partial/Moderate Assistance-helper does LESS THAN HALF the effort. [place] lifts, holds or supports trunk or limbs, but provides less than half the effort. 2-Substantial/Maximal Assistance-helper does MORE THAN HALF the effort. [place] lifts or holds trunk or limbs and provides more than half the effort. 9-Eksayvjkv-ssngat does ALL the effort. Patient does none of the effort to complete the activity. Or, the assistance of 2 or more helpers is required for the patient to complete the activity. If activity was not attempted, code reason: 7-Patient Refused. 9-Not Applicable-not attempted and the patient did not perform the activity before the current illness, exacerbation or injury. 10-Not Attempted due to Environmental Limitations-(lack of equipment, weather restraints, etc.). 88-Not Attempted due to Medical Conditions or Safety Concerns. Roll Left to Right (QC): 1 (max (A) of 2) Sit to Lying (QC): 1 (mod-max (A) of 2 (lifting both legs and positioning trunk).) Sit to Stand (QC): 2 (varied this pm from mod (A) of 1 from recliner, max (A) of 1 from Nustep, and min (A) of 1 from redd mat. Sit>stand to FWW.) Chair/Akq-kn-Njwsf Xfer(QC): 3 (mod (A) of 1 /c FWW - dove for Nustep after walking to gym requiring mod (A) to ensure he made it to seat surface.) Car Transfer (QC): 88 Gait Training Does the Patient Walk?: Yes Distance: 88', 70' Walk 10 feet (QC): 1 (Mod (A) of 2 with w/c back up 64' - leans heavily (L) and needs v.c/v.c/t.c to center self in walker. Walked 135' 2nd attempt with same assist level. 02 with all gait/activity at 4L.) Walk 50 ft with 2 Turns(QC): 1 (mod (A) of 1 /c second person for O2 tank, no w/c follow this pm. Ambulated 135' x 2. Prn standing rest breaks to adjust grip wrapper on walker and center himself with walker.) Walk 150 ft (QC): 88 (unable to reach 150' distance) Walking 10ft/uneven surface-QC: 88 Gait Persons Needed: 2 Gait Assistive Device: FWW Wheelchair Training Does the Pt Use a Wheelchair?: Yes Distance: 135' Wheel 50 ft with 2 turns (QC): 4 (cues to use (R) arm more to avoid (R) obstacles, cues for big pushes with both arms. Increased time to complete. Propelled 20' enroute to gym /p gait.) Wheel 150 ft (QC): 88 (unable to reach 150' distance - fatigued) Type of Wheelchair: Manual Stair Training 1 Step (curb) (QC): 88 4 Steps (QC): 88 12 Steps (QC): 88 Balance Picking up an Object (QC): 88 ADL-Treatment Eating (QC): 3 (to drink from large hospital cup and straw) Oral Hygiene (QC): 4 Shower/Bathe Self (QC): 3 (Assistance with standing balance at [facility] while pt dried buttocks/periarea. Pt able to wash/dry other parts seated on MA. LH sponge provided.) Upper Body Dressing (QC): 3 (Mod A to don due to pt fatigue post shower.) Lower Body Dressing (QC): 2 (CGA doffing pants, VCs for safety. Max A donning.) On/Off Footwear (QC): 2 (Max A doffing. Total assist donning.) Toileting Hygiene (QC): 1 (assist x2 required.) Toilet Transfer (QC): 1 (min A x2, VCs for safety with transfer) Assessment/Plan Assessment and Plan Assess & Plan/Chief Complaint Assessment: Severe debility following aspiration PNA and respiratory arrest s/p intubation Severe progressive Parkinsonism Dyphagia Severe constipation acute on chronic BPH GERD Hypokalemia Severe constipation acute on chronic Plan: Home meds PT OT ST BM regimen 01/28/2023: 01/26/2023: Nebs O2 Replace potassium BM regimen 01/27/2023: Patient dramatically improved Maintain bowel regimen since bowels have evacuated Increase stamina 01/28/2023: Patient dramatically improved Continue aggressive rehab 01/29/2023: Aggressive speech therapy for prevention of aspiration Dramatic improvement (1) HAIM Mitchell DO Jan 29, 2023 05:26
[2023-01-29] MEDS: POTASSIUM BICARB 20 MEQ effervescent TABLET PO SCH (06:31)
[2023-01-29] MEDS: TROSPIUM 20 MG (SANCTURA) TAB PO SCH ×2 (06:31→17:02)
[2023-01-29] MEDS: THERAPEUTIC MULTIVITAMIN W/MINERALS TABLET PO SCH (06:31)
[2023-01-29] MEDS: CARBIDOPA/LEVODOPA 25/100 TABLET PO SCH ×3 (06:31→17:40)
[2023-01-29 08:00] VITALS: BP 117/57
[2023-01-29] MEDS: ASPIRIN 81 MG CHEWABLE TABLET PO SCH (08:17)
[2023-01-29] MEDS: SENNA W/DOCUSATE TABLET PO SCH ×2 (08:17→20:23)
[2023-01-29] MEDS: DOCUSATE SODIUM 100 MG CAPSULE PO SCH ×2 (08:18→20:23)
[2023-01-29] MEDS: ENOXAPARIN 40 MG/0.4 ML SYRINGE SC SCH (08:18)
--- NOTE | 2023-01-29 10:59 | Occupational Ther Daily Note ---
OT Current Status-Daily Note Subjective Pt. alert sitting in recliner with present in room. No c/o pain. Pt. agreed to therapy. Mental Status/Objective Patient Orientation: Person, Place, Time, Situation Attachments: Oxygen ADL-Treatment Therapy Code Descriptions/Definitions Functional [place] Measure: 0=Not Assessed/NA 4=Minimal Assistance 1=Total Assistance 5=Supervision or Setup 2=Maximal Assistance 6=Modified [place] 3=Moderate Assistance 7=Complete IndependenceSCALE: Activities may be completed with or without assistive devices. 3-Kdhztklyoz-szhptki completes the activity by him/herself with no assistance from a helper. 5-Set-up or Clean-up Assistance-helper sets up or cleans up; patient completes activity. [place] assists only prior to or following the activity. 4-Supervision or Touching Assistance-helper provides verbal cues and/or touching/steadying and/or contact guard assistance as patient completes activity . Assistance may be provided throughout the activity or intermittently. 3-Partial/Moderate Assistance-helper does LESS THAN HALF the effort. [place] lifts, holds or supports trunk or limbs, but provides less than half the effort. 2-Substantial/Maximal Assistance-helper does MORE THAN HALF the effort. [place] lifts or holds trunk or limbs and provides more than half the effort. 3-Mcgxxojxc-bftilc does ALL the effort. Patient does none of the effort to complete the activity. Or, the assistance of 2 or more helpers is required for the patient to complete the activity. If activity was not attempted, code reason: 7-Patient Refused. 9-Not Applicable-not attempted and the patient did not perform the activity before the current illness, exacerbation or injury. 10-Not Attempted due to Environmental Limitations-(lack of equipment, weather restraints, etc.). 88-Not Attempted due to Medical Conditions or Safety Concerns. Bathing Location: L Arm, R Arm, L Upper Leg, R Upper Leg, L Lower Leg (including foot), R Lower Leg (including foot), Chest, Abdomen, Buttocks, Perineal Area Shower/Bathe Self (QC): 3 (Pt. able to bathe all areas while sitting 95% of the time on shower bench using LH sponge, HH shower, and grabbars with min A. ) Upper Body Dressing (QC): 3 (Mod A with UB clothing with threading over head and pulling down trunk.) Lower Body Dressing (QC): 3 (Pt. able to thread brief while sitting and stands using grabbars to hike then needed assist with threading pants then pt. able to take pants from knees while standing using grabbars to hike, min A balance) On/Off Footwear: 2 (Pt. able to doff by self. Pt. attempted to don socks due to pt leaning forward felt unsafe then needed assist with donning B socks after set up.) Other Treatment Pt. sats 96% o2 with 2L during activity. Sit to stands from recliner Max A. Min A with ambulation from recliner to shower using FWW. Pt completed showering and dressing as outlined above. 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 Pt returned to recliner via w/c, Sit to stand from w/c, mod A. Min A transfer to recliner. After session, pt in recliner with and friends present in room with call light and phone in reach and all needs met. OT Short Term Goals Short Term Goals Time Frame: Feb 05, 2023 Toileting hygiene: 3 Lower body dressin Putting on/taking off footwear: 3 OT Fpc Goals Churn Operator Goals Time Frame: Feb 26, 2023 Acute change in mental status: 1 Inattention: 0 Disorganized thinkin Altered level of consciousness: 0 Eating (QC): 6 Oral Hygiene (QC): 6 Toileting Hygiene (QC): 6 Shower/Bathe Self (QC): 6 Upper Body Dressing (QC): 6 Lower Body Dressing (QC): 6 On/Off Footwear (QC): 6 Additional Goals: 1-Demonstrate ADL Tasks, 2-Verbalize Understanding, 3-Impro veStrength/Destinee 1=Demonstrate adherence to instructed precautions during ADL tasks. 2=Patient will verbalize/demonstrate understanding of assistive devices/modifications for ADL. 3=Patient will improve strength/tolerance for activity to enable patient to perform ADL's. OT Education/Plan Problem List/Assessment Assessment: Decreased Activ Tolerance, Decreased UE Strength, Impaired Funct Balance, Impaired I ADL's, Impaired Self-Care Skills Discharge Recommendations Plan/Recommendations: Continue POC Treatment Plan/Plan of Care Patient would benefit from OT for education, treatment and training to promote independence in ADL's, mobility, safety and/or upper extremity function for ADL's. Plan of Care: ADL Retraining, Functional Mobility, Group Exercise/Act as Ind, UE Funct Exercise/Act Treatment Duration: Feb 26, 2023 Frequency: At least 5 of 7 days/Wk (IRF) Estimated Hrs Per Day: Other (75 mins per day) Agreement: Yes Rehab Potential: Good Time Start Time: 10:00 Stop Time: 11:00 DATE: Jan 29, 2023 Total Time Billed (hr/min): 60 Billed Treatment Time 1 visit- ADL 4 (60 mins) RENÉ ESQUIVEL OT Jan 29, 2023 10:59
--- NOTE | 2023-01-29 12:18 | Physical Therapy Daily Note ---
PT Daily Note-Current Subjective No complaints Pain Section J - Health Conditions 1. Rarely or not at all 2. Occasionally 3. Frequently 4. Almost constantly 8. Unable to answer Pain Effect on Sleep: 1 Pain Interference with Therapy: 1 Pain Interference w/Day-to-Day: 1 Transfers SCALE: Activities may be completed with or without assistive devices. 6-Ecbzevfcym-bdpxmjz completes the activity by him/herself with no assistance from a helper. 5-Set-up or Clean-up Assistance-helper sets up or cleans up; patient completes activity. [place] assists only prior to or following the activity. 4-Supervision or Touching Assistance-helper provides verbal cues and/or touching/steadying and/or contact guard assistance as patient completes acti vity. Assistance may be provided throughout the activity or intermittently. 3-Partial/Moderate Assistance-helper does LESS THAN HALF the effort. [place] lifts, holds or supports trunk or limbs, but provides less than half the effort. 2-Substantial/Maximal Assistance-helper does MORE THAN HALF the effort. [place] lifts or holds trunk or limbs and provides more than half the effort. 0-Xspcnroyx-dxzkbp does ALL the effort. Patient does none of the effort to complete the activity. Or, the assistance of 2 or more helpers is required for the patient to complete the activity. If activity was not attempted, code reason: 7-Patient Refused. 9-Not Applicable-not attempted and the patient did not perform the activity before the current illness, exacerbation or injury. 10-Not Attempted due to Environmental Limitations-(lack of equipment, weather restraints, etc.). 88-Not Attempted due to Medical Conditions or Safety Concerns. Lying to Sitting/Side of Bed(Q: 3 (mod (A) /c max cues) Sit to Stand (QC): 3 (min-mod (A) of 1 depending on seat height) Chair/Mtt-xh-Mhfbi Xfer(QC): 3 (min-mod (A) of 1 /c FWW) Dependent for socks and shoes. Dependent to max to place pants over feet. Stood and pulled pants up and bottoned/zipped with mod (A) in standing. Weight Bearing Full Weight Bearing Full Weight Bearing Gait Training Distance: 260', 195' Walk 150 ft (QC): 1 (Min-mod (A) of 1, but requires 2nd person for O2 tank) Gait Assistive Device: FWW Exercises Patient required min (A) today to place feet on Nustep (vs mod (A) yesterday) NuStep Minutes: 10 NuStep Workload: 3 Assessment Improved gait distance with FWW with O2 sats 92-94% the entire time on 2L O2 per portable O2 tank. PT Oyster Washer Goals [facility] Goals PT Oyster Washer Goals Time Frame: Feb 15, 2023 Roll Left & Right (QC): 4 Sit to Lying (QC): 4 Lying-Sitting on Side/Bed(QC): 4 Sit to Stand (QC): 4 Chair/Jad-gd-Rmtdi Xfer(QC): 3 Toilet Transfer (QC): 3 Car Transfer (QC): 3 Does the Patient Walk: Yes Walk 10 feet (QC): 3 Walk 50ft with 2 Turns (QC): 3 Walk 150 ft (QC): 3 Walking 10ft on Uneven Surface: 3 1 Step (curb) (QC): 3 4 Steps (QC): 9 12 Steps (QC): 9 Picking up an Object (QC): 3 Does the Pt use WC or Scooter?: Yes Wheel 50 feet with 2 turns (QC: 6 Type: Manual Wheel 150 feet: 6 Type: Manual PT Plan Treatment/Plan Treatment Plan: Continue Plan of Care Treatment Plan: Bed Mobility, Concurrent Therapy, Education, Functional Activity [place], Functional Strength, Group Therapy, Gait, Safety, Therapeutic Exercise, Transfers Treatment Duration: Feb 15, 2023 Frequency: At least 5 of 7 days/Wk (IRF) Estimated Hrs Per Day: Other (75' per Day M-F) Patient and/or Family Agrees t: Yes Time Time In: 855 Time Out: 925 DATE: Jan 29, 2023 Total Billed Treatment Time: 30 Total Billed Treatment 1, GT, EX Shasha Bansal PT Jan 29, 2023 12:18
--- NOTE | 2023-01-29 13:57 | Speech Therapy Daily Note ---
Speech Daily Progress Note Subjective Date Seen by Provider: Jan 29, 2023 Time Seen by Provider: 12:00 Pt was agreeable to session, was present for several minutes. Objective Pt demonstrates no s/s of aspiration during PO intake. Pt continues to tolerate current diet and liquids. Pt continues to require visual cues to complete safe swallow strategies. Assessment Assessment Current Status: Good Progress Treatment Plan Continue Plan of Care Speech Tectonophysicist Goals Half-Way Goals Pt will demonstrate diet upgrade trials without s/s of aspiration during PO intake with 5/5 trials. Pt will demonstrate adequate use of safe swallow strategies to eliminate s/s of laryngeal penetration and/or aspiration of safest, least restrictive diet with cues during 80% of therapeutic trials. Speech-Plan Treatment Plan Speech Therapy Treatment Plan: Continue Plan of Care Treatment Duration: Jan 25, 2023 Frequency: At least 5 of 7 days/Wk (IRF) Estimated Hrs Per Day: .5 hour per day Rehab Potential: Good Time Speech Therapy Time In: 12:00 Speech Therapy Time Out: 12:17 DATE: Jan 29, 2023 Total Billed Time: 17 Billed Treatment Time 1 DYST 17 min Evelyn Galeas Jan 29, 2023 13:56
--- NOTE | 2023-01-29 15:06 | Therapy Group Daily Note ---
Therapy Daily Group Note Patient Education Topic Energy Cons, Exercises Exercises UE Exercise Session Ratio (pt:therapist): 4:1 Goal of Session: Education on ARU Expectations, Energy Conservation Tech., UE/LE Strengthing Goal Met for this Session: Yes Pt Benefit of Group: Contributions to Others, Increased Functional Strength, Recognition of Peers, Socialization Other/Notes Pt attended OT group via w/c. OT group consisted of introductions (name, place living, favorite holiday), socialization, BUE dowel exercises seated, and education on benefits of exercises. Pt introduced self appropriately and actively listened to peers. Pt able to complete BUE dowel exercises, 2x10 reps with minimal cues. Pt then able to use dowel simone in UEs to "bat" balloons and balls around the group, and used BLEs to "kick" balls around group. Pt demonstrated understanding of educational topic. Pt taken back to room via w/c, Mod A sit to stand, then min A transfer After therapy, pt up in recliner, call light in reach and all needs met. Start Time: 13:00 Stop Time: 14:00 Total Billed Treatment Time: 60 Total Billed Treatment 1, GRP RENÉ ESQUIVEL OT Jan 29, 2023 15:06
--- NOTE | 2023-01-29 15:35 | Speech Therapy Daily Note ---
Speech Daily Progress Note Subjective Date Seen by Provider: Jan 29, 2023 Time Seen by Provider: 15:20 Pt was sitting up in bedside chair. Objective Pt educated regrading oral motor exercises, importance and how to complete. Pt states understanding, will continue to complete in sessions. Assessment Assessment Current Status: Good Progress Treatment Plan Continue Plan of Care Speech Chcf Goals Order Packer Goals Pt will demonstrate diet upgrade trials without s/s of aspiration during PO intake with 5/5 trials. Pt will demonstrate adequate use of safe swallow strategies to eliminate s/s of laryngeal penetration and/or aspiration of safest, least restrictive diet with cues during 80% of therapeutic trials. Speech-Plan Treatment Plan Speech Therapy Treatment Plan: Continue Plan of Care Treatment Duration: Jan 25, 2023 Frequency: At least 5 of 7 days/Wk (IRF) Estimated Hrs Per Day: .5 hour per day Rehab Potential: Good Time Speech Therapy Time In: 15:20 Speech Therapy Time Out: 15:33 DATE: Jan 29, 2023 Total Billed Time: 13 Billed Treatment Time 1 DYST 13 min Evelyn Galeas Jan 29, 2023 15:35
[2023-01-29] MEDS: Sulfamethoxazole/Trimethoprim DS TABLET PO SCH (17:03)
[2023-01-29] MEDS: ACETAMINOPHEN 325 MG TABLET PO PRN (17:45)
[2023-01-29] MEDS: traZODone 50 MG (DESYREL) TAB PO SCH (20:23)
[2023-01-29 21:03] VITALS: BP 126/60
[2023-01-29] MEDS: MELATONIN 3 MG TABLET PO PRN (22:01)
[2023-01-30] MEDS: ACETAMINOPHEN 325 MG TABLET PO PRN (03:30)
--- NOTE | 2023-01-30 06:27 | PM&R Progress Note ---
Subjective HPI/CC On Admission Date Seen by Provider: Jan 30, 2023 Time Seen by Provider: 12:00 Subjective/Events-last exam 01/30/2023: Doing well No pain Lungs are clear Weaning O2 to 1L/min at bedside Needs to take BM regimen after he refuses it 01/29/2023: Patient dramatically improved Moving around much better No BM but taking bowel regimen No falls Lungs are clear 01/28/2023: Patient dramatically improved Slow recovery still remains No falls No pain Weaning oxygen Son at bedside 01/27/2023: Patient doing much better Appears to have good spirits today at bedside Bowels evacuated We will maintain bowel regimen No dysphagia currently Lungs are clear Oxygen maintain and weaning down 01/26/2023: Rested well last night Slow walking with therapy and 2 assists but it was strong and dramatic improvement Dysphagia improved CXR residual infiltrates Labs reviewed Potassium 3.4 so will initiate supplement BP stable O2 requirements are 4.0L Bowel regimen will be continued until BM Review of Systems General: Fatigue, Malaise Objective Exam Vital Signs Vital Signs Date Time Temp Pulse Resp B/P (MAP) Pulse Ox O2 Delivery O2 Flow Rate FiO2 01/30/23 09:00 Nasal Cannula 1.00 01/30/23 08:00 36.9 85 22 139/75 (96) 95 Capillary Refill : General Appearance: No Apparent Distress, WD/WN, Chronically ill HEENT: PERRL/EOMI, Normal ENT Inspection, Pharynx Normal Neck: Full Range of Motion, Normal Inspection, Non Tender, Supple, Carotid Bruit Respiratory: Chest Non Tender, Lungs Clear, Normal Breath Sounds, No Accessory Muscle Use, No Respiratory Distress, Decreased Breath Sounds Cardiovascular: Regular Rate, Rhythm, No Edema, No Gallop, No JVD, No Murmur, Normal Peripheral Pulses Gastrointestinal: Normal Bowel Sounds, No Organomegaly, No Pulsatile Mass, Non Tender, Soft Back: Normal Inspection, No CVA Tenderness, No Vertebral Tenderness Extremity: Normal Capillary Refill, Normal Inspection, Normal Range of Motion, Non Tender, No Calf Tenderness, No Pedal Edema Neurologic/Psychiatric: Alert, Oriented x3, 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 FIM Transfers Therapy Code Descriptions/Definitions Functional [place] Measure: 0=Not Assessed/NA 4=Minimal Assistance 1=Total Assistance 5=Supervision or Setup 2=Maximal Assistance 6=Modified [place] 3=Moderate Assistance 7=Complete IndependenceSCALE: Activities may be completed with or without assistive devices. 6-Njzoizjckv-jibiunq completes the activity by him/herself with no assistance from a helper. 5-Set-up or Clean-up Assistance-helper sets up or cleans up; patient completes activity. [place] assists only prior to or following the activity. 4-Supervision or Touching Assistance-helper provides verbal cues and/or touching/steadying and/or contact guard assistance as patient completes activity. Assistance may be provided throughout the activity or intermittently. 3-Partial/Moderate Assistance-helper does LESS THAN HALF the effort. [place] lift s, holds or supports trunk or limbs, but provides less than half the effort. 2-Substantial/Maximal Assistance-helper does MORE THAN HALF the effort. [place] lifts or holds trunk or limbs and provides more than half the effort. 3-Eoxlqspzf-gqrdok does ALL the effort. Patient does none of the effort to complete the activity. Or, the assistance of 2 or more helpers is required for the patient to complete the activity. If activity was not attempted, code reason: 7-Patient Refused. 9-Not Applicable-not attempted and the patient did not perform the activity before the current illness, exacerbation or injury. 10-Not Attempted due to Environmental Limitations-(lack of equipment, weather restraints, etc.). 88-Not Attempted due to Medical Conditions or Safety Concerns. Roll Left to Right (QC): 1 (max (A) of 2) Sit to Lying (QC): 1 (mod-max (A) of 2 (lifting both legs and positioning trunk).) Sit to Stand (QC): 3 (min-mod (A) of 1 depending on seat height) Chair/Ddq-ln-Mdvxe Xfer(QC): 3 (min-mod (A) of 1 /c FWW) Car Transfer (QC): 88 Gait Training Does the Patient Walk?: Yes Distance: 260', 195' Walk 10 feet (QC): 1 (Mod (A) of 2 with w/c back up 64' - leans heavily (L) and needs v.c/v.c/t.c to center self in walker. Walked 135' 2nd attempt with same assist level. 02 with all gait/activity at 4L.) Walk 50 ft with 2 Turns(QC): 1 (mod (A) of 1 /c second person for O2 tank, no w/c follow this pm. Ambulated 135' x 2. 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 Increased time to complete. Propelled 20' enroute to gym /p gait.) Wheel 150 ft (QC): 88 (unable to reach 150' distance - fatigued) Type of Wheelchair: Manual Stair Training 1 Step (curb) (QC): 88 4 Steps (QC): 88 12 Steps (QC): 88 Balance Picking up an Object (QC): 88 ADL-Treatment Eating (QC): 3 (to drink from large hospital cup and straw) Oral Hygiene (QC): 4 Bathing Location: L Arm, R Arm, L Upper Leg, R Upper Leg, L Lower Leg (including foot), R Lower Leg (including foot), Chest, Abdomen, Buttocks, Perineal Area Shower/Bathe Self (QC): 3 (Pt. able to bathe all areas while sitting 95% of the time on shower bench using LH sponge, HH shower, and grabbars with min A. ) Upper Body Dressing (QC): 3 (Mod A with UB clothing with threading over head and pulling down trunk.) Lower Body Dressing (QC): 3 (Pt. able to thread brief while sitting and stands using grabbars to hike then needed assist with threading pants then pt. able to take pants from knees while standing using grabbars to hike, min A balance) On/Off Footwear (QC): 2 (Pt. able to doff by self. Pt. attempted to don socks due to pt leaning forward felt unsafe then needed assist with donning B socks after set up.) Toileting Hygiene (QC): 1 (assist x2 required.) Toilet Transfer (QC): 1 (min A x2, VCs for safety with transfer) Assessment/Plan Assessment and Plan Assess & Plan/Chief Complaint Assessment: Severe debility following aspiration PNA and respiratory arrest s/p intubation Severe progressive Parkinsonism Dyphagia Severe constipation acute on chronic BPH GERD Hypokalemia Severe constipation acute on chronic Plan: Home meds PT OT ST BM regimen 01/28/2023: 01/26/2023: Nebs O2 Replace potassium BM regimen 01/27/2023: Patient dramatically improved Maintain bowel regimen since bowels have evacuated Increase stamina 01/28/2023: Patient dramatically improved Continue aggressive rehab 01/29/2023: Aggressive speech therapy for prevention of aspiration Dramatic improvement 01/30/2023: Focus on regaining strength Wean O2 (1) HAIM Mitchell DO Jan 30, 2023 06:27
[2023-01-30] MEDS: POTASSIUM BICARB 20 MEQ effervescent TABLET PO SCH (06:52)
[2023-01-30] MEDS: CARBIDOPA/LEVODOPA 25/100 TABLET PO SCH ×3 (06:52→16:58)
[2023-01-30] MEDS: TROSPIUM 20 MG (SANCTURA) TAB PO SCH ×2 (06:52→16:58)
[2023-01-30] MEDS: THERAPEUTIC MULTIVITAMIN W/MINERALS TABLET PO SCH (06:52)
[2023-01-30 08:00] VITALS: BP 139/75
[2023-01-30] MEDS: DOCUSATE SODIUM 100 MG CAPSULE PO SCH ×2 (09:54→20:29)
[2023-01-30] MEDS: ENOXAPARIN 40 MG/0.4 ML SYRINGE SC SCH (09:54)
[2023-01-30] MEDS: SENNA W/DOCUSATE TABLET PO SCH ×2 (09:54→20:29)
[2023-01-30] MEDS: ASPIRIN 81 MG CHEWABLE TABLET PO SCH (09:54)
[2023-01-30] MEDS: Sulfamethoxazole/Trimethoprim DS TABLET PO SCH (16:58)
[2023-01-30] MEDS: MELATONIN 3 MG TABLET PO PRN (20:29)
[2023-01-30] MEDS: traZODone 50 MG (DESYREL) TAB PO SCH (20:29)
[2023-01-30 22:12] VITALS: BP 114/65
[2023-01-31] MEDS: ACETAMINOPHEN 325 MG TABLET PO PRN (01:10)
[2023-01-31] MEDS: THERAPEUTIC MULTIVITAMIN W/MINERALS TABLET PO SCH (06:23)
[2023-01-31] MEDS: CARBIDOPA/LEVODOPA 25/100 TABLET PO SCH ×3 (06:23→17:20)
[2023-01-31] MEDS: POTASSIUM BICARB 20 MEQ effervescent TABLET PO SCH (06:23)
[2023-01-31] MEDS: TROSPIUM 20 MG (SANCTURA) TAB PO SCH ×2 (06:23→16:22)
[2023-01-31 08:00] VITALS: BP 107/60
[2023-01-31] MEDS: ASPIRIN 81 MG CHEWABLE TABLET PO SCH (08:28)
[2023-01-31] MEDS: SENNA W/DOCUSATE TABLET PO SCH ×2 (08:28→20:45)
[2023-01-31] MEDS: DOCUSATE SODIUM 100 MG CAPSULE PO SCH ×2 (08:31→20:45)
[2023-01-31] MEDS: ENOXAPARIN 40 MG/0.4 ML SYRINGE SC SCH (08:36)
--- NOTE | 2023-01-31 13:40 | PM&R Progress Note ---
Subjective HPI/CC On Admission Date Seen by Provider: Jan 31, 2023 Time Seen by Provider: 08:15 Subjective/Events-last exam 01/31/2023: Patient doing a lot better Weaning down oxygen Lungs are clear Bowels have not moved and maintaining the bowel regimen when he allows 01/30/2023: Doing well No pain Lungs are clear Weaning O2 to 1L/min at bedside Needs to take BM regimen after he refuses it 01/29/2023: Patient dramatically improved Moving around much better No BM but taking bowel regimen No falls Lungs are clear 01/28/2023: Patient dramatically improved Slow recovery still remains No falls No pain Weaning oxygen Son at bedside 01/27/2023: Patient doing much better Appears to have good spirits today at bedside Bowels evacuated We will maintain bowel regimen No dysphagia currently Lungs are clear Oxygen maintain and weaning down 01/26/2023: Rested well last night Slow walking with therapy and 2 assists but it was strong and dramatic improvement Dysphagia improved CXR residual infiltrates Labs reviewed Potassium 3.4 so will initiate supplement BP stable O2 requirements are 4.0L Bowel regimen will be continued until BM Review of Systems General: Fatigue, Malaise Objective Exam Vital Signs Vital Signs Date Time Temp Pulse Resp B/P (MAP) Pulse Ox O2 Delivery O2 Flow Rate FiO2 01/31/23 10:39 Room Air 01/31/23 08:00 36.4 80 20 107/60 (76) 95 1.00 Capillary Refill : General Appearance: No Apparent Distress, WD/WN, Chronically ill HEENT: PERRL/EOMI, Normal ENT Inspection, Pharynx Normal Neck: Full Range of Motion, Normal Inspection, Non Tender, Supple, Carotid Bruit Respiratory: Chest Non Tender, Lungs Clear, Normal Breath Sounds, No Accessory Muscle Use, No Respiratory Distress, Decreased Breath Sounds Cardiovascular: Regular Rate, Rhythm, No Edema, No Gallop, No JVD, No Murmur, Normal Peripheral Pulses Gastrointestinal: Normal Bowel Sounds, No Organomegaly, No Pulsatile Mass, Non Tender, Soft Back: Normal Inspection, No CVA Tenderness, No Vertebral Tenderness Extremity: Normal Capillary Refill, Normal Inspection, Normal Range of Motion, Non Tender, No Calf Tenderness, No Pedal Edema Neurologic/Psychiatric: Alert, Oriented x3, 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 FIM Transfers Therapy Code Descriptions/Definitions Functional [place] Measure: 0=Not Assessed/NA 4=Minimal Assistance 1=Total Assistance 5=Supervision or Setup 2=Maximal Assistance 6=Modified [place] 3=Moderate Assistance 7=Complete IndependenceSCALE: Activities may be completed with or without assistive devices. 6-Kxgdquatgy-zkjmxca completes the activity by him/herself with no assistance from a helper. 5-Set-up or Clean-up Assistance-helper sets up or cleans up; patient completes activity. [place] assists only prior to or following the activity. 4-Supervision or Touching Assistance-helper provides verbal cues and/or touching/steadying and/or contact guard assistance as patient completes activity. Assistance may be provided throughout the activity or intermittently. 3-Partial/Moderate Assistance-helper does LESS THAN HALF the effort. [place] lifts, holds or supports trunk or limbs, but provides less than half the effort. 2-Substantial/Maximal Assistance-helper does MORE THAN HALF the effort. [place] lifts or holds trunk or limbs and provides more than half the effort. 8-Hapyjcevc-xnropw does ALL the effort. Patient does none of the effort to complete the activity. Or, the assistance of 2 or more helpers is required for the patient to complete the activity. If activity was not attempted, code reason: 7-Patient Refused. 9-Not Applicable-not attempted and the patient did not perform the activity before the current illness, exacerbation or injury. 10-Not Attempted due to Environmental Limitations-(lack of equipment, weather restraints, etc.). 88-Not Attempted due to Medical Conditions or Safety Concerns. Roll Left to Right (QC): 1 (max (A) of 2) Sit to Lying (QC): 1 (mod-max (A) of 2 (lifting both legs and positioning trunk).) Sit to Stand (QC): 3 (min-mod (A) of 1 depending on seat height) Chair/Ywm-tj-Spkpy Xfer(QC): 3 (min-mod (A) of 1 /c FWW) Car Transfer (QC): 88 Gait Training Does the Patient Walk?: Yes Distance: 260', 195' Walk 10 feet (QC): 1 (Mod (A) of 2 with w/c back up 64' - leans heavily (L) and needs v.c/v.c/t.c to center self in walker. Walked 135' 2nd attempt with same assist level. 02 with all gait/activity at 4L.) Walk 50 ft with 2 Turns(QC): 1 (mod (A) of 1 /c second person for O2 tank, no w/c follow this pm. Ambulated 135' x 2. 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 Increased time to complete. Propelled 20' enroute to gym /p gait.) Wheel 150 ft (QC): 88 (unable to reach 150' distance - fatigued) Type of Wheelchair: Manual Stair Training 1 Step (curb) (QC): 88 4 Steps (QC): 88 12 Steps (QC): 88 Balance Picking up an Object (QC): 88 ADL-Treatment Eating (QC): 3 (to drink from large hospital cup and straw) Oral Hygiene (QC): 4 Bathing Location: L Arm, R Arm, L Upper Leg, R Upper Leg, L Lower Leg (including foot), R Lower Leg (including foot), Chest, Abdomen, Buttocks, Perineal Area Shower/Bathe Self (QC): 3 (Pt. able to bathe all areas while sitting 95% of the time on shower bench using LH sponge, HH shower, and grabbars with min A. ) Upper Body Dressing (QC): 3 (Mod A with UB clothing with threading over head and pulling down trunk.) Lower Body Dressing (QC): 3 (Pt. able to thread brief while sitting and stands using grabbars to hike then needed assist with threading pants then pt. able to take pants from knees while standing using grabbars to hike, min A balance) On/Off Footwear (QC): 2 (Pt. able to doff by self. Pt. attempted to don socks due to pt leaning forward felt unsafe then needed assist with donning B socks after set up.) Toileting Hygiene (QC): 1 (assist x2 required.) Toilet Transfer (QC): 1 (min A x2, VCs for safety with transfer) Assessment/Plan Assessment and Plan Assess & Plan/Chief Complaint Assessment: Severe debility following aspiration PNA and respiratory arrest s/p intubation Severe progressive Parkinsonism Dyphagia Severe constipation acute on chronic BPH GERD Hypokalemia Severe constipation acute on chronic Plan: Home meds PT OT ST BM regimen 01/28/2023: 01/26/2023: Nebs O2 Replace potassium BM regimen 01/27/2023: Patient dramatically improved Maintain bowel regimen since bowels have evacuated Increase stamina 01/28/2023: Patient dramatically improved Continue aggressive rehab 01/29/2023: Aggressive speech therapy for prevention of aspiration Dramatic improvement 01/30/2023: Focus on regaining strength Wean O2 01/31/2023: Wean oxygen off Bowel regimen (1) HAIM Mitchell DO Jan 31, 2023 13:40
[2023-01-31] MEDS: BISACODYL 10 MG SUPPOSITORY PR PRN (16:22)
[2023-01-31] MEDS: Sulfamethoxazole/Trimethoprim DS TABLET PO SCH (17:20)
[2023-01-31 19:50] VITALS: BP 121/60
[2023-01-31] MEDS: traZODone 50 MG (DESYREL) TAB PO SCH (20:45)
--- NOTE | 2023-02-01 05:19 | PM&R Progress Note ---
Subjective HPI/CC On Admission Date Seen by Provider: Feb 01, 2023 Time Seen by Provider: 09:00 Subjective/Events-last exam 02/01/2023: Much improved Walking well No falls No pain Lungs are clear Weaned O2 now 01/31/2023: Patient doing a lot better Weaning down oxygen Lungs are clear Bowels have not moved and maintaining the bowel regimen when he allows 01/30/2023: Doing well No pain Lungs are clear Weaning O2 to 1L/min at bedside Needs to take BM regimen after he refuses it 01/29/2023: Patient dramatically improved Moving around much better No BM but taking bowel regimen No falls Lungs are clear 01/28/2023: Patient dramatically improved Slow recovery still remains No falls No pain Weaning oxygen Son at bedside 01/27/2023: Patient doing much better Appears to have good spirits today at bedside Bowels evacuated We will maintain bowel regimen No dysphagia currently Lungs are clear Oxygen maintain and weaning down 01/26/2023: Rested well last night Slow walking with therapy and 2 assists but it was strong and dramatic improvement Dysphagia improved CXR residual infiltrates Labs reviewed Potassium 3.4 so will initiate supplement BP stable O2 requirements are 4.0L Bowel regimen will be continued until BM Review of Systems General: Fatigue, Malaise Objective Exam Vital Signs Vital Signs Date Time Temp Pulse Resp B/P (MAP) Pulse Ox O2 Delivery O2 Flow Rate FiO2 02/01/23 20:10 Room Air 02/01/23 20:01 36.9 82 20 129/63 (85) 94 01/31/23 19:50 Capillary Refill : General Appearance: No Apparent Distress, WD/WN, Chronically ill HEENT: PERRL/EOMI, Normal ENT Inspection, Pharynx Normal Neck: Full Range of Motion, Normal Inspection, Non Tender, Supple, Carotid Bruit Respiratory: Chest Non Tender, Lungs Clear, Normal Breath Sounds, No Accessory Muscle Use, No Respiratory Distress, Decreased Breath Sounds Cardiovascular: Regular Rate, Rhythm, No Edema, No Gallop, No JVD, No Murmur, Normal Peripheral Pulses Gastrointestinal: Normal Bowel Sounds, No Organomegaly, No Pulsatile Mass, Non Tender, Soft Back: Normal Inspection, No CVA Tenderness, No Vertebral Tenderness Extremity: Normal Capillary Refill, Normal Inspection, Normal Range of Motion, Non Tender, No Calf Tenderness, No Pedal Edema Neurologic/Psychiatric: Alert, Oriented x3, guide travel II-XII Norm as Tested, Abnormal Gait, Depressed Affect, Motor Weakness (generalized) Skin: Normal Color, Warm/Dry Lymphatic: No Adenopathy Results/Procedures Lab Laboratory Tests 02/01/23 05:33 Patient resulted labs reviewed. FIM Transfers Therapy Code Descriptions/Definitions Functional [place] Measure: 0=Not Assessed/NA 4=Minimal Assistance 1=Total Assistance 5=Supervision or Setup 2=Maximal Assistance 6=Modified [place] 3=Moderate Assistance 7=Complete IndependenceSCALE: Activities may be completed with or without assistive devices. 7-Aocexxfpuq-uwtqcsf completes the activity by him/herself with no assistance from a helper. 5-Set-up or Clean-up Assistance-helper sets up or cleans up; patient completes activity. [place] assists only prior to or following the activity. 4-Supervision or Touching Assistance-helper provides verbal cues and/or touching/steadying and/or contact guard assistance as patient completes activity. Assistance may be provided throughout the activity or intermittently. 3-Partial/Moderate Assistance-helper does LESS THAN HALF the effort. [place] lifts, holds or supports trunk or limbs, but provides less than half the effort. 2-Substantial/Maximal Assistance-helper does MORE THAN HALF the effort. [place] lifts or holds trunk or limbs and provides more than half the effort. 5-Yzbiiarxi-bvkcvv does ALL the effort. Patient does none of the effort to complete the activity. Or, the assistance of 2 or more helpers is required for the patient to complete the activity. If activity was not attempted, code reason: 7-Patient Refused. 9-Not Applicable-not attempted and the patient did not perform the activity before the current illness, exacerbation or injury. 10-Not Attempted due to Environmental Limitations-(lack of equipment, weather restraints, etc.). 88-Not Attempted due to Medical Conditions or Safety Concerns. Roll Left to Right (QC): 1 (max (A) of 2) Sit to Lying (QC): 1 (mod-max (A) of 2 (lifting both legs and positioning trunk).) Sit to Stand (QC): 3 (min-mod (A) of 1 depending on seat height) Chair/Wpa-ub-Luipz Xfer(QC): 3 (min-mod (A) of 1 /c FWW) Car Transfer (QC): 88 Gait Training Does the Patient Walk?: Yes Distance: 260', 195' Walk 10 feet (QC): 1 (Mod (A) of 2 with w/c back up 64' - leans heavily (L) and needs v.c/v.c/t.c to center self in walker. Walked 135' 2nd attempt with same assist level. 02 with all gait/activity at 4L.) Walk 50 ft with 2 Turns(QC): 1 (mod (A) of 1 /c second person for O2 tank, no w/c follow this pm. Ambulated 135' x 2. Prn standing rest breaks to adjust gri p on walker and center himself with walker.) Walk 150 ft (QC): 1 (Min-mod (A) of 1, but requires 2nd person for O2 tank) Walking 10ft/uneven surface-QC: 88 Gait Persons Needed: 2 Gait Assistive Device: FWW Wheelchair Training Does the Pt Use a Wheelchair?: Yes Distance: 135' Wheel 50 ft with 2 turns (QC): 4 (cues to use (R) arm more to avoid (R) obstacles, cues for big pushes with both arms. Increased time to complete. Propelled 20' enroute to gym /p gait.) Wheel 150 ft (QC): 88 (unable to reach 150' distance - fatigued) Type of Wheelchair: Manual Stair Training 1 Step (curb) (QC): 88 4 Steps (QC): 88 12 Steps (QC): 88 Balance Picking up an Object (QC): 88 ADL-Treatment Eating (QC): 3 (to drink from large hospital cup and straw) Oral Hygiene (QC): 4 Bathing Location: L Arm, R Arm, L Upper Leg, R Upper Leg, L Lower Leg (including foot), R Lower Leg (including foot), Chest, Abdomen, Buttocks, Perineal Area Shower/Bathe Self (QC): 3 (Pt. able to bathe all areas while sitting 95% of the time on shower bench using LH sponge, HH shower, and grabbars with min A. ) Upper Body Dressing (QC): 3 (Mod A with UB clothing with threading over head and pulling down trunk.) Lower Body Dressing (QC): 3 (Pt. able to thread brief while sitting and stands using grabbars to hike then needed assist with threading pants then pt. able to take pants from knees while standing using grabbars to hike, min A balance) On/Off Footwear (QC): 2 (Pt. able to doff by self. Pt. attempted to don socks due to pt leaning forward felt unsafe then needed assist with donning B socks after set up.) Toileting Hygiene (QC): 1 (assist x2 required.) Toilet Transfer (QC): 1 (min A x2, VCs for safety with transfer) Assessment/Plan Assessment and Plan Assess & Plan/Chief Complaint Assessment: Severe debility following aspiration PNA and respiratory arrest s/p intubation Severe progressive Parkinsonism Dyphagia Severe constipation acute on chronic BPH GERD Hypokalemia Severe constipation acute on chronic Plan: Home meds PT OT ST BM regimen 01/28/2023: 01/26/2023: Nebs O2 Replace potassium BM regimen 01/27/2023: Patient dramatically improved Maintain bowel regimen since bowels have evacuated Increase stamina 01/28/2023: Patient dramatically improved Continue aggressive rehab 01/29/2023: Aggressive speech therapy for prevention of aspiration Dramatic improvement 01/30/2023: Focus on regaining strength Wean O2 01/31/2023: Wean oxygen off Bowel regimen 02/01/2023: Weaned O2 off Improved (1) HAIM Mitchell DO Feb 01, 2023 05:19
[2023-02-01 06:04] LABS: BASOPHILS # (AUTO) 0.1 10^3/uL (0.0-0.1); BASOPHILS % (AUTO) 1 % (0-10); EOSINOPHILS # (AUTO) 0.2 10^3/uL (0.0-0.3); EOSINOPHILS % (AUTO) 2 % (0-10); HEMATOCRIT 38 % (40-54); HEMOGLOBIN 12.2 g/dL (13.3-17.7); LYMPHOCYTES # (AUTO) 1.8 10^3/uL (1.0-4.0); LYMPHOCYTES % (AUTO) 20 % (12-44); MEAN CORPUSCULAR HEMOGLOBIN 31 pg (25-34); MEAN CORPUSCULAR HGB CONC 32 g/dL (32-36); MEAN CORPUSCULAR VOLUME 94 fL (80-99); MEAN PLATELET VOLUME 9.2 fL (9.0-12.2); MONOCYTES # (AUTO) 0.5 10^3/uL (0.0-1.0); MONOCYTES % (AUTO) 5 % (0-12); NEUTROPHILS # (AUTO) 6.6 10^3/uL (1.8-7.8); NEUTROPHILS % (AUTO) 72 % (42-75); PLATELET COUNT 485 10^3/uL (130-400); WHITE BLOOD COUNT 9.2 10^3/uL (4.3-11.0)
[2023-02-01] MEDS: CARBIDOPA/LEVODOPA 25/100 TABLET PO SCH ×3 (06:23→17:58)
[2023-02-01] MEDS: THERAPEUTIC MULTIVITAMIN W/MINERALS TABLET PO SCH (06:23)
[2023-02-01] MEDS: POTASSIUM BICARB 20 MEQ effervescent TABLET PO SCH (06:23)
[2023-02-01] MEDS: TROSPIUM 20 MG (SANCTURA) TAB PO SCH ×2 (06:23→16:38)
[2023-02-01 06:31] LABS: ALBUMIN 3.4 GM/DL (3.2-4.5); POTASSIUM 3.8 MMOL/L (3.6-5.0)
[2023-02-01 06:33] LABS: TOTAL PROTEIN 6.3 GM/DL (6.4-8.2)
[2023-02-01 06:35] LABS: BILIRUBIN,TOTAL 0.9 MG/DL (0.1-1.0)
[2023-02-01 06:37] LABS: CREATININE SERUM 0.71 MG/DL (0.60-1.30)
[2023-02-01 06:40] LABS: MAGNESIUM 2.1 MG/DL (1.6-2.4)
[2023-02-01 07:44] VITALS: BP 136/67
[2023-02-01] MEDS: ENOXAPARIN 40 MG/0.4 ML SYRINGE SC SCH (08:20)
[2023-02-01] MEDS: DOCUSATE SODIUM 100 MG CAPSULE PO SCH ×2 (08:20→21:29)
[2023-02-01] MEDS: ASPIRIN 81 MG CHEWABLE TABLET PO SCH (08:20)
[2023-02-01] MEDS: SENNA W/DOCUSATE TABLET PO SCH ×2 (08:20→21:29)
--- NOTE | 2023-02-01 10:30 | Occupational Ther Daily Note ---
OT Current Status-Daily Note Subjective Pt. alert sitting in recliner with present in room. No c/o pain. Pt. agreed to therapy. Mental Status/Objective Patient Orientation: Person, Place, Time, Situation ADL-Treatment Pt and decliner ADLs this date. Therapy Code Descriptions/Definitions Functional [place] Measure: 0=Not Assessed/NA 4=Minimal Assistance 1=Total Assistance 5=Supervision or Setup 2=Maximal Assistance 6=Modified [place] 3=Moderate Assistance 7=Complete IndependenceSCALE: Activities may be completed with or without assistive devices. 8-Yshdslghbt-jiwmxuo completes the activity by him/herself with no assistance from a helper. 5-Set-up or Clean-up Assistance-helper sets up or cleans up; patient completes activity. [place] assists only prior to or following the activity. 4-Supervision or Touching Assistance-helper provides verbal cues and/or touching/steadying and/or contact guard assistance as patient completes act ivity. Assistance may be provided throughout the activity or intermittently. 3-Partial/Moderate Assistance-helper does LESS THAN HALF the effort. [place] lifts, holds or supports trunk or limbs, but provides less than half the effort. 2-Substantial/Maximal Assistance-helper does MORE THAN HALF the effort. [place] lifts or holds trunk or limbs and provides more than half the effort. 3-Lxinqsblr-cjyzgu does ALL the effort. Patient does none of the effort to complete the activity. Or, the assistance of 2 or more helpers is required for the patient to complete the activity. If activity was not attempted, code reason: 7-Patient Refused. 9-Not Applicable-not attempted and the patient did not perform the activity before the current illness, exacerbation or injury. 10-Not Attempted due to Environmental Limitations-(lack of equipment, weather restraints, etc.). 88-Not Attempted due to Medical Conditions or Safety Concerns. Other Treatment Pt. completed sit to stands SBA. Pt. ambulated from room to therapy gym using FWW with CGA with min v/c to to stand closer to walker for correct posture. Pt completed B UE exercises 6 exercises 1 set of 10 reps using medium resistances and 2# hand wt in PNF patterning to increase strength, endurance, balance and ROM for daily functional tasks. Skilled instruction for correct technique and modifications when needed. CGA in standing tasks while completing dynamic balance for safety, no LOB throughout session. Pt able to reach at varying heights to grasp/place cones to work on dynamic standing balance. Quick reflex and dynamic standing balance inside //bars using balloon ~8min, no LOB. After session, pt in recliner with present in room with call light and phone in reach and all needs met. OT Short Term Goals Short Term Goals Time Frame: Feb 05, 2023 Toileting hygiene: 3 Lower body dressin Putting on/taking off footwear: 3 OT Experimental Mechanic Electrical Goals Senior Care Goals Time Frame: Feb 26, 2023 Acute change in mental status: 1 Inattention: 0 Disorganized thinkin Altered level of consciousness: 0 Eating (QC): 6 Oral Hygiene (QC): 6 Toileting Hygiene (QC): 6 Shower/Bathe Self (QC): 6 Upper Body Dressing (QC): 6 Lower Body Dressing (QC): 6 On/Off Footwear (QC): 6 Additional Goals: 1-Demonstrate ADL Tasks, 2-Verbalize Understanding, 3- ImproveStrength/Destinee 1=Demonstrate adherence to instructed precautions during ADL tasks. 2=Patient will verbalize/demonstrate understanding of assistive devices/modifications for ADL. 3=Patient will improve strength/tolerance for activity to enable patient to perform ADL's. OT Education/Plan Problem List/Assessment Assessment: Decreased Safety Aware, Decreased UE Strength, Impaired Funct Balance, Impaired I ADL's, Impaired Self-Care Skills Discharge Recommendations Plan/Recommendations: Continue POC Treatment Plan/Plan of Care Patient would benefit from OT for education, treatment and training to promote independence in ADL's, mobility, safety and/or upper extremity function for ADL's. Plan of Care: ADL Retraining, Functional Mobility, Group Exercise/Act as Ind, UE Funct Exercise/Act Treatment Duration: Feb 26, 2023 Frequency: At least 5 of 7 days/Wk (IRF) Estimated Hrs Per Day: Other (75 mins per day) Agreement: Yes Rehab Potential: Good Time Start Time: 09:45 Stop Time: 10:30 DATE: Feb 01, 2023 Total Time Billed (hr/min): 45 Billed Treatment Time 1 visit- EX 3 (45 mins) MATTHEW VASQUEZ Feb 01, 2023 10:30
[2023-02-01] MEDS: LACTULOSE SYRUP 10GM/15ML 30ML UDC PO PRN ×2 (10:54→21:29)
--- NOTE | 2023-02-01 13:43 | Speech Therapy Daily Note ---
Speech Daily Progress Note Subjective Date Seen by Provider: Feb 01, 2023 Time Seen by Provider: 11:45 Pt was sitting in bedside chair and agreeable to session. Pt's was present. Objective BONDERIZER OPERATOR discusses and demonstrates three oral motor exercises (OMEs) with pt. The modified yesika maneuver, grace maneuver, and effortful swallow. Pt was able to complete the modified yesika maneuver and effortful swallow, but not able to complete the grace maneuver. During session, pt's lunch was brought in. Pt demonstrates coughing throughout the session, unable to determine if it was due to PO intake or just a cough. Pt reports that he had been coughing all morning. BONDERIZER OPERATOR discusses this with nrsing, they report no s/s of aspiration were observed during breakfast and his lunch sounded clearer than they had at admittance. Assessment Assessment Current Status: Good Progress Treatment Plan Continue Plan of Care Speech Radiology Technologist Goals Radiology Technologist Goals Pt will demonstrate diet upgrade trials without s/s of aspiration during PO intake with 5/5 trials. Pt will demonstrate adequate use of safe swallow strategies to eliminate s/s of laryngeal penetration and/or aspiration of safest, least restrictive diet with cues during 80% of therapeutic trials. Speech-Plan Treatment Plan Speech Therapy Treatment Plan: Continue Plan of Care Treatment Duration: Jan 25, 2023 Frequency: At least 5 of 7 days/Wk (IRF) Estimated Hrs Per Day: .5 hour per day Rehab Potential: Good Safety Risks/Education Teaching Recipient: Patient Teaching Methods: Demonstration Response to Teaching: Verbalize Understanding Education Topics Provided: Educated pt on reasoning of OMEs and demonstrations on how to complete. Time Speech Therapy Time In: 11:45 Speech Therapy Time Out: 12:15 DATE: Feb 01, 2023 Total Billed Time: 30 Billed Treatment Time 1 DYST 30 min Evelyn Galeas Feb 01, 2023 13:42
--- NOTE | 2023-02-01 14:18 | Occupational Ther Daily Note ---
OT Current Status-Daily Note Subjective Pt. in recliner with present in room. No c/o pain. Pt. agreed to therapy. Mental Status/Objective Patient Orientation: Person, Place, Time, Situation ADL-Treatment Therapy Code Descriptions/Definitions Functional [place] Measure: 0=Not Assessed/NA 4=Minimal Assistance 1=Total Assistance 5=Supervision or Setup 2=Maximal Assistance 6=Modified [place] 3=Moderate Assistance 7=Complete IndependenceSCALE: Activities may be completed with or without assistive devices. 3-Xixndrbpxw-ysnwhca completes the activity by him/herself with no assistance from a helper. 5-Set-up or Clean-up Assistance-helper sets up or cleans up; patient completes activity. [place] assists only prior to or following the activity. 4-Supervision or Touching Assistance-helper provides verbal cues and/or touching /steadying and/or contact guard assistance as patient completes activity. Assistance may be provided throughout the activity or intermittently. 3-Partial/Moderate Assistance-helper does LESS THAN HALF the effort. [place] lifts, holds or supports trunk or limbs, but provides less than half the effort. 2-Substantial/Maximal Assistance-helper does MORE THAN HALF the effort. [place] lifts or holds trunk or limbs and provides more than half the effort. 0-Ljwojrmmq-qgryhy does ALL the effort. Patient does none of the effort to complete the activity. Or, the assistance of 2 or more helpers is required for the patient to complete the activity. If activity was not attempted, code reason: 7-Patient Refused. 9-Not Applicable-not attempted and the patient did not perform the activity before the current illness, exacerbation or injury. 10-Not Attempted due to Environmental Limitations-(lack of equipment, weather restraints, etc.). 88-Not Attempted due to Medical Conditions or Safety Concerns. Other Treatment Pt. completed flexbar exercises 4 exercises to increase hand strengthening and wine consultant, 1 set with 10# and 1 set with 15# bar 10reps each. Skilled instruction for correct techniques and modifications when needed. After session, pt in recliner with present in room with call light and phone in reach and all needs met. OT Short Term Goals Short Term Goals Time Frame: Feb 05, 2023 Toileting hygiene: 3 Lower body dressin Putting on/taking off footwear: 3 OT Halfway Goals Marketing Developer Goals Time Frame: Feb 26, 2023 Acute change in mental status: 1 Inattention: 0 Disorganized thinkin Altered level of consciousness: 0 Eating (QC): 6 Oral Hygiene (QC): 6 Toileting Hygiene (QC): 6 Shower/Bathe Self (QC): 6 Upper Body Dressing (QC): 6 Lower Body Dressing (QC): 6 On/Off Footwear (QC): 6 Additional Goals: 1-Demonstrate ADL Tasks, 2-Verbalize Understanding, 3- ImproveStrength/Destinee 1=Demonstrate adherence to instructed precautions during ADL tasks. 2=Patient will verbalize/demonstrate understanding of assistive devices/modifications for ADL. 3=Patient will improve strength/tolerance for activity to enable patient to perform ADL's. OT Education/Plan Problem List/Assessment Assessment: Decreased UE Strength Discharge Recommendations Plan/Recommendations: Continue POC Treatment Plan/Plan of Care Patient would benefit from OT for education, treatment and training to promote independence in ADL's, mobility, safety and/or upper extremity function for ADL's. Plan of Care: ADL Retraining, Functional Mobility, Group Exercise/Act as Ind, UE Funct Exercise/Act Treatment Duration: Feb 26, 2023 Frequency: At least 5 of 7 days/Wk (IRF) Estimated Hrs Per Day: Other (75 mins per day) Agreement: Yes Rehab Potential: Good Time Start Time: 13:00 Stop Time: 13:30 DATE: Feb 01, 2023 Total Time Billed (hr/min): 30 Billed Treatment Time 1 visit- EX 2 (30 mins) MATTHEW VASQUEZ Feb 01, 2023 14:18
--- NOTE | 2023-02-01 15:13 | Physical Therapy Daily Note ---
PT Daily Note-Current Subjective No O2 today other than CPAP at night/while sleeping. O2 sats 94% on room air prior to PT. Pain Section J - Health Conditions 1. Rarely or not at all 2. Occasionally 3. Frequently 4. Almost constantly 8. Unable to answer Pain Effect on Sleep: 1 Pain Interference with Therapy: 1 Pain Interference w/Day-to-Day: 1 Transfers SCALE: Activities may be completed with or without assistive devices. 9-Oxiadxmogn-ozvyjwr completes the activity by him/herself with no assistance from a helper. 5-Set-up or Clean-up Assistance-helper sets up or cleans up; patient completes activity. [place] assists only prior to or following the activity. 4-Supervision or Touching Assistance-helper provides verbal cues and/or touching/steadying and/or contact guard assistance as patient completes activity. Assistance may be provided throughout the activity or intermittently. 3-Partial/Moderate Assistance-helper does LESS THAN HALF the effort. [place] lifts, holds or supports trunk or limbs, but provides less than half the effort. 2-Substantial/Maximal Assistance-helper does MORE THAN HALF the effort. [place] lifts or holds trunk or limbs and provides more than half the effort. 5-Fbcmeylqh-ecywgb does ALL the effort. Patient does none of the effort to complete the activity. Or, the assistance of 2 or more helpers is required for the patient to complete the activity. If activity was not attempted, code reason: 7-Patient Refused. 9-Not Applicable-not attempted and the patient did not perform the activity before the current illness, exacerbation or injury. 10-Not Attempted due to Environmental Limitations-(lack of equipment, weather restraints, etc.). 88-Not Attempted due to Medical Conditions or Safety Concerns. Roll Left & Right (QC): 6 (/c bed rail in place) Sit to Lying (QC): 3 (Min (A) to lift (L) LE onto bed) Sit to Stand (QC): 3 (min-mod (A) of 1, needs prn hand placement cues and cues to place toes on floor immediately upon standing (rocks back on heels).) Chair/Uqf-of-Hjoir Xfer(QC): 3 (Min (A) of 1 /c FWW with safety cues to turn completely to chair before beginning to sit) Weight Bearing Full Weight Bearing Full Weight Bearing Gait Training Does the Patient Walk?: Yes Distance: 135', 367' Walk 10 feet (QC): 3 Walk 50 ft with 2 Turns(QC): 3 Walk 150 ft (QC): 3 (/c FWW 367' with prn cues for posture, to slow anupam and step closer to walker. 3 standing rest breaks to adjust physical sciences professor on walker. NO O2 t today and sats remained 94-95% /c gait on RA.) Walking 10ft/uneven surface-QC: 3 (x 4 across gym mat /c FWW, cues to turn completely to face mat before attempting to place walker up on mat) Gait Persons Needed: 1 Gait Assistive Device: FWW Wheelchair Training Does the Pt Use a Wheelchair?: No Wheel 50 ft with 2 turns (QC): 9 Wheel 150 ft (QC): 9 Stair Training 4 Steps (QC): 3 (min (A) /c (B) rails up/down 4 steps.) Exercises Seated blue t-band lumbar extension x 15, seated BTB crunches x 15 Standing balance exercise with 1 CALCINE FURNACE TENDER on walker to reach and place 10 cones with (L) hand to/from various heights (L) to (R)/ (R) to (L) , then with (R) hand from (L) to (R)/(R) to (L) - CGA without LOB. Good activity tolerance with this task. Standing ball toss catch with small red ball x 20 tosses /s LOB- CGA.. Standing ball kick while holding onto FWW, alternating (L) and (R) feet x 20 CGA-Min(A) /s LOB. Supine ex in bed: SLR x 15 (B), bridges x 10, sidelying hip abd x 10, sidelying knee extension/flexion x 10 /c assist to maintain leg position. NuStep Minutes: 12 (Sats checked q. 4 minutes - 94-95% on RA.) NuStep Workload: 4 Assessment Current Status: Excellent Progress Much improved gait with distance and assist level, as well as activity tolerance and standing balance. PT Relocation Commissioner Goals Relocation Commissioner Goals PT Intermediate Goals Time Frame: Feb 15, 2023 Roll Left & Right (QC): 4 Sit to Lying (QC): 4 Lying-Sitting on Side/Bed(QC): 4 Sit to Stand (QC): 4 Chair/Vxj-yp-Qdgdw Xfer(QC): 3 Toilet Transfer (QC): 3 Car Transfer (QC): 3 Does the Patient Walk: Yes Walk 10 feet (QC): 3 Walk 50ft with 2 Turns (QC): 3 Walk 150 ft (QC): 3 Walking 10ft on Uneven Surface: 3 1 Step (curb) (QC): 3 4 Steps (QC): 9 12 Steps (QC): 9 Picking up an Object (QC): 3 Does the Pt use WC or Scooter?: Yes Wheel 50 feet with 2 turns (QC: 6 Type: Manual Wheel 150 feet: 6 Type: Manual PT Plan Treatment/Plan Treatment Plan: Continue Plan of Care Treatment Plan: Bed Mobility, Concurrent Therapy, Education, Functional Activity [place], Functional Strength, Group Therapy, Gait, Safety, Therapeutic Exercise, Transfers Treatment Duration: Feb 15, 2023 Frequency: At least 5 of 7 days/Wk (IRF) Estimated Hrs Per Day: Other (75' per Day M-F) Patient and/or Family Agrees t: Yes Time Time In: 1345 Time Out: 1500 DATE: Feb 01, 2023 Total Billed Treatment Time: 75 Total Billed Treatment 1, 2EX, 2 GT, FA Shasha Bansal PT Feb 01, 2023 15:13
[2023-02-01] MEDS: Sulfamethoxazole/Trimethoprim DS TABLET PO SCH (16:38)
[2023-02-01] MEDS: ACETAMINOPHEN 325 MG TABLET PO PRN (16:41)
[2023-02-01 20:01] VITALS: BP 129/63
[2023-02-01] MEDS: traZODone 50 MG (DESYREL) TAB PO SCH (21:29)
[2023-02-02] MEDS: TROSPIUM 20 MG (SANCTURA) TAB PO SCH ×2 (06:20→16:49)
[2023-02-02] MEDS: THERAPEUTIC MULTIVITAMIN W/MINERALS TABLET PO SCH (06:20)
[2023-02-02] MEDS: POTASSIUM BICARB 20 MEQ effervescent TABLET PO SCH (06:20)
[2023-02-02] MEDS: CARBIDOPA/LEVODOPA 25/100 TABLET PO SCH ×3 (06:20→18:02)
[2023-02-02 08:00] VITALS: BP 127/63
--- NOTE | 2023-02-02 08:12 | PM&R Progress Note ---
Subjective HPI/CC On Admission Date Seen by Provider: Feb 02, 2023 Time Seen by Provider: 12:00 Subjective/Events-last exam 02/02/2023: Patient was to go home Told me his long-term care insurance is charging him $100 a day to be in inpatient rehab Bladder training initiated Incontinence is a concern from his Updated son 02/01/2023: Much improved Walking well No falls No pain Lungs are clear Weaned O2 now 01/31/2023: Patient doing a lot better Weaning down oxygen Lungs are clear Bowels have not moved and maintaining the bowel regimen when he allows 01/30/2023: Doing well No pain Lungs are clear Weaning O2 to 1L/min at bedside Needs to take BM regimen after he refuses it 01/29/2023: Patient dramatically improved Moving around much better No BM but taking bowel regimen No falls Lungs are clear 01/28/2023: Patient dramatically improved Slow recovery still remains No falls No pain Weaning oxygen Son at bedside 01/27/2023: Patient doing much better Appears to have good spirits today at bedside Bowels evacuated We will maintain bowel regimen No dysphagia currently Lungs are clear Oxygen maintain and weaning down 01/26/2023: Rested well last night Slow walking with therapy and 2 assists but it was strong and dramatic improvement Dysphagia improved CXR residual infiltrates Labs reviewed Potassium 3.4 so will initiate supplement BP stable O2 requirements are 4.0L Bowel regimen will be continued until BM Review of Systems General: Fatigue, Malaise Objective Exam Vital Signs Vital Signs Date Time Temp Pulse Resp B/P (MAP) Pulse Ox O2 Delivery O2 Flow Rate FiO2 02/02/23 20:27 NIV CPAP 02/02/23 20:03 36.3 87 20 122/62 (82) 96 01/31/23 19:50 Capillary Refill : General Appearance: No Apparent Distress, WD/WN, Chronically ill HEENT: PERRL/EOMI, Normal ENT Inspection, Pharynx Normal Neck: Full Range of Motion, Normal Inspection, Non Tender, Supple, Carotid Bruit Respiratory: Chest Non Tender, Lungs Clear, Normal Breath Sounds, No Accessory Muscle Use, No Respiratory Distress, Decreased Breath Sounds Cardiovascular: Regular Rate, Rhythm, No Edema, No Gallop, No JVD, No Murmur, Normal Peripheral Pulses Gastrointestinal: Normal Bowel Sounds, No Organomegaly, No Pulsatile Mass, Non Tender, Soft Back: Normal Inspection, No CVA Tenderness, No Vertebral Tenderness Extremity: Normal Capillary Refill, Normal Inspection, Normal Range of Motion, Non Tender, No Calf Tenderness, No Pedal Edema Neurologic/Psychiatric: Alert, Oriented x3, commercial painter II-XII Norm as Tested, Abnormal Gait, Depressed Affect, Motor Weakness (generalized) Skin: Normal Color, Warm/Dry Lymphatic: No Adenopathy Results/Procedures Lab Patient resulted labs reviewed. FIM Transfers Therapy Code Descriptions/Definitions Functional [place] Measure: 0=Not Assessed/NA 4=Minimal Assistance 1=Total Assistance 5=Supervision or Setup 2=Maximal Assistance 6=Modified [place] 3=Moderate Assistance 7=Complete IndependenceSCALE: Activities may be completed with or without assistive devices. 4-Jxxzvkhgpg-asvrsfc completes the activity by him/herself with no assistance from a helper. 5-Set-up or Clean-up Assistance-helper sets up or cleans up; patient completes activity. [place] assists only prior to or following the activity. 4-Supervision or Touching Assistance-helper provides verbal cues and/or touching/steadying and/or contact guard assistance as patient completes activity. Assistance may be provided throughout the activity or intermittently. 3-Partial/Moderate Assistance-helper does LESS THAN HALF the effort. [place] lifts, holds or supports trunk or limbs, but provides less than half the effort. 2-Substantial/Maximal Assistance-helper does MORE THAN HALF the effort. [place] lifts or holds trunk or limbs and provides more than half the effort. 9-Gzezkdxhn-rzuscc does ALL the effort. Patient does none of the effort to complete the activity. Or, the assistance of 2 or more helpers is required for the patient to complete the activity. If activity was not attempted, code reason: 7-Patient Refused. 9-Not Applicable-not attempted and the patient did not perform the activity before the current illness, exacerbation or injury. 10-Not Attempted due to Environmental Limitations-(lack of equipment, weather restraints, etc.). 88-Not Attempted due to Medical Conditions or Safety Concerns. Roll Left to Right (QC): 6 (/c bed rail in place) Sit to Lying (QC): 3 (Min (A) to lift (L) LE onto bed) Sit to Stand (QC): 3 (min-mod (A) of 1, needs prn hand placement cues and cues to place toes on floor immediately upon standing (rocks back on heels).) Chair/Pmt-sq-Sbtej Xfer(QC): 3 (Min (A) of 1 /c FWW with safety cues to turn completely to chair before beginning to sit) Car Transfer (QC): 88 Gait Training Does the Patient Walk?: Yes Distance: 135', 367' Walk 10 feet (QC): 3 Walk 50 ft with 2 Turns(QC): 3 Walk 150 ft (QC): 3 (/c FWW 367' with prn cues for posture, to slow anupam and step closer to walker. 3 standing rest breaks to adjust teacher on walker. NO O2 t today and sats remained 94-95% /c gait on RA.) Walking 10ft/uneven surface-QC: 3 (x 4 across gym mat /c FWW, cues to turn completely to face mat before attempting to place walker up on mat) Gait Persons Needed: 1 Gait Assistive Device: FWW Wheelchair Training Does the Pt Use a Wheelchair?: No Distance: 135' Wheel 50 ft with 2 turns (QC): 9 Wheel 150 ft (QC): 9 Type of Wheelchair: Manual Stair Training 1 Step (curb) (QC): 88 4 Steps (QC): 3 (min (A) /c (B) rails up/down 4 steps.) 12 Steps (QC): 88 Balance Picking up an Object (QC): 88 ADL-Treatment Eating (QC): 3 (to drink from large hospital cup and straw) Oral Hygiene (QC): 4 Bathing Location: L Arm, R Arm, L Upper Leg, R Upper Leg, L Lower Leg (including foot), R Lower Leg (including foot), Chest, Abdomen, Buttocks, Perineal Area Shower/Bathe Self (QC): 3 (Pt. able to bathe all areas while sitting 95% of the time on shower bench using LH sponge, HH shower, and grabbars with min A. ) Upper Body Dressing (QC): 3 (Mod A with UB clothing with threading over head and pulling down trunk.) Lower Body Dressing (QC): 3 (Pt. able to thread brief while sitting and stands using grabbars to hike then needed assist with threading pants then pt. able to take pants from knees while standing using grabbars to hike, min A balance) On/Off Footwear (QC): 2 (Pt. able to doff by self. Pt. attempted to don socks due to pt leaning forward felt unsafe then needed assist with donning B socks after set up.) Toileting Hygiene (QC): 1 (assist x2 required.) Toilet Transfer (QC): 1 (min A x2, VCs for safety with transfer) Assessment/Plan Assessment and Plan Assess & Plan/Chief Complaint Assessment: Severe debility following aspiration PNA and respiratory arrest s/p intubation Severe progressive Parkinsonism Dyphagia Severe constipation acute on chronic BPH GERD Hypokalemia Severe constipation acute on chronic Urinary incontinence Plan: Home meds PT OT ST BM regimen 01/28/2023: 01/26/2023: Nebs O2 Replace potassium BM regimen 01/27/2023: Patient dramatically improved Maintain bowel regimen since bowels have evacuated Increase stamina 01/28/2023: Patient dramatically improved Continue aggressive rehab 01/29/2023: Aggressive speech therapy for prevention of aspiration Dramatic improvement 01/30/2023: Focus on regaining strength Wean O2 01/31/2023: Wean oxygen off Bowel regimen 02/01/2023: Weaned O2 off Improved 02/02/2023: Bladder schedule Suppository if needed (1) HAIM Mitchell DO Feb 02, 2023 08:12
--- NOTE | 2023-02-02 09:23 | Occupational Ther Daily Note ---
OT Current Status-Daily Note Subjective Pt. alert sitting in recliner, No c/o pain, Pt. agreed to therapy. Mental Status/Objective Patient Orientation: Person, Place, Time, Situation ADL-Treatment Therapy Code Descriptions/Definitions Functional [place] Measure: 0=Not Assessed/NA 4=Minimal Assistance 1=Total Assistance 5=Supervision or Setup 2=Maximal Assistance 6=Modified [place] 3=Moderate Assistance 7=Complete IndependenceSCALE: Activities may be completed with or without assistive devices. 3-Jgqskizrrh-dtlosrw completes the activity by him/herself with no assistance fr om a helper. 5-Set-up or Clean-up Assistance-helper sets up or cleans up; patient completes activity. [place] assists only prior to or following the activity. 4-Supervision or Touching Assistance-helper provides verbal cues and/or touching/steadying and/or contact guard assistance as patient completes activity. Assistance may be provided throughout the activity or intermittently. 3-Partial/Moderate Assistance-helper does LESS THAN HALF the effort. [place] lifts, holds or supports trunk or limbs, but provides less than half the effort. 2-Substantial/Maximal Assistance-helper does MORE THAN HALF the effort. [place] lifts or holds trunk or limbs and provides more than half the effort. 4-Qsbpxnsse-xsvahr does ALL the effort. Patient does none of the effort to complete the activity. Or, the assistance of 2 or more helpers is required for the patient to complete the activity. If activity was not attempted, code reason: 7-Patient Refused. 9-Not Applicable-not attempted and the patient did not perform the activity before the current illness, exacerbation or injury. 10-Not Attempted due to Environmental Limitations-(lack of equipment, weather restraints, etc.). 88-Not Attempted due to Medical Conditions or Safety Concerns. On/Off Footwear: 5 (Pt. able to don shoes by self after set up. ) Other Treatment Pt. completed sit to stands SBA. Pt. ambulated from room to/from therapy gym using FWW with close SBA. Pt completed B UE exercises 6 exercises 1 set of 10 reps using medium resistances to increase strength for daily functional tasks. Skilled instruction for correct technique and modifications when needed. Dynamic standing activity using FWW with CGA to increase ROM, endurance, balance, and strength with no LOB. After session, pt in recliner with call light and phone in reach and all needs met. OT Short Term Goals Short Term Goals Time Frame: Feb 05, 2023 Toileting hygiene: 3 Lower body dressin Putting on/taking off footwear: 3 OT Audit Control Clerk Goals Residential Goals Time Frame: Feb 26, 2023 Acute change in mental status: 1 Inattention: 0 Disorganized thinkin Altered level of consciousness: 0 Eating (QC): 6 Oral Hygiene (QC): 6 Toileting Hygiene (QC): 6 Shower/Bathe Self (QC): 6 Upper Body Dressing (QC): 6 Lower Body Dressing (QC): 6 On/Off Footwear (QC): 6 Additional Goals: 1-Demonstrate ADL Tasks, 2-Verbalize Understanding, 3- ImproveStrength/Destinee 1=Demonstrate adherence to instructed precautions during ADL tasks. 2=Patient will verbalize/demonstrate understanding of assistive devices/modifications for ADL. 3=Patient will improve strength/tolerance for activity to enable patient to perform ADL's. OT Education/Plan Problem List/Assessment Assessment: Decreased Safety Aware, Decreased UE Strength, Impaired Funct Balance, Impaired Self-Care Skills Discharge Recommendations Plan/Recommendations: Continue POC Treatment Plan/Plan of Care Patient would benefit from OT for education, treatment and training to promote independence in ADL's, mobility, safety and/or upper extremity function for ADL's. Plan of Care: ADL Retraining, Functional Mobility, Group Exercise/Act as Ind, UE Funct Exercise/Act Treatment Duration: Feb 26, 2023 Frequency: At least 5 of 7 days/Wk (IRF) Estimated Hrs Per Day: Other (75 mins per day) Agreement: Yes Rehab Potential: Good Time Start Time: 08:15 Stop Time: 09:00 DATE: Feb 02, 2023 Total Time Billed (hr/min): 45 Billed Treatment Time 1 visit- EX 1 (15 mins) FA 2 (30 mins) MATTHEW VASQUEZ Feb 02, 2023 09:23
[2023-02-02] MEDS: ASPIRIN 81 MG CHEWABLE TABLET PO SCH (09:27)
[2023-02-02] MEDS: DOCUSATE SODIUM 100 MG CAPSULE PO SCH ×2 (09:27→20:25)
[2023-02-02] MEDS: SENNA W/DOCUSATE TABLET PO SCH ×2 (09:27→20:25)
[2023-02-02] MEDS: LACTULOSE SYRUP 10GM/15ML 30ML UDC PO PRN ×2 (09:28→20:25)
[2023-02-02] MEDS: ENOXAPARIN 40 MG/0.4 ML SYRINGE SC SCH (09:28)
--- NOTE | 2023-02-02 12:24 | Physical Therapy Daily Note ---
PT Daily Note-Current Subjective Pt sitting in recliner upon arrival. Sp present. Pt agrees to PT. Pain Location: No Pain Reported Section J - Health Conditions 1. Rarely or not at all 2. Occasionally 3. Frequently 4. Almost constantly 8. Unable to answer Pain Effect on Sleep: 1 Pain Interference with Therapy: 1 Pain Interference w/Day-to-Day: 1 Mental Status Patient Orientation: Person, Place, Time, Situation Transfers SCALE: Activities may be completed with or without assistive devices. 3-Vjncwcljkm-puysfej completes the activity by him/herself with no assistance from a helper. 5-Set-up or Clean-up Assistance-helper sets up or cleans up; patient completes activity. [place] assists only prior to or following the activity. 4-Supervision or Touching Assistance-helper provides verbal cues and/or touching/steadying and/or contact guard assistance as patient completes activity. Assistance may be provided throughout the activity or intermittently. 3-Partial/Moderate Assistance-helper does LESS THAN HALF the effort. [place] lifts, holds or supports trunk or limbs, but provides less than half the effort. 2-Substantial/Maximal Assistance-helper does MORE THAN HALF the effort. [place] lifts or holds trunk or limbs and provides more than half the effort. 8-Siealkhsf-cpmztr does ALL the effort. Patient does none of the effort to complete the activity. Or, the assistance of 2 or more helpers is required for the patient to complete the activity. If activity was not attempted, code reason: 7-Patient Refused. 9-Not Applicable-not attempted and the patient did not perform the activity before the current illness, exacerbation or injury. 10-Not Attempted due to Environmental Limitations-(lack of equipment, weather restraints, etc.). 88-Not Attempted due to Medical Conditions or Safety Concerns. Sit to Stand (QC): 4 (CGA) Weight Bearing Full Weight Bearing Full Weight Bearing Gait Training Distance: 367+' Walk 10 feet (QC): 4 (CGA) Walk 50 ft with 2 Turns(QC): 4 (CGA) Walk 150 ft (QC): 4 (CGA) Gait Persons Needed: 1 Gait Assistive Device: FWW Good anupam, step length & picking up feet well even after extended walking Exercises Supine Ex: Ankle pumps, Quad Set, Glut sets, Heel Slides, Straight leg raise, Hip abd/add Supine Reps: 15 Seated Therapy Exercises: Ankle pumps, Long arc quads, Hip flexion, Hip abd/add Seated Reps: 15 NuStep Minutes: 15 NuStep Workload: 7 Treatments Pt TF to standing and amb in hallway. Pt uses NuStep followed by short RB. Pt amb in hallway and on carpet in Family Lounge before returning to to room to rest in recliner. Pt reviews & practices written HEP for Supine & Seated EX. Pt resting in recliner w/all needs met, call light in hand & Sp present. Assessment Current Status: Good Progress Pt is gaining strength, mobility and independence of tasks. PT Autopsy Pathologist Goals Long-Term Goals PT Autopsy Pathologist Goals Time Frame: Feb 15, 2023 Roll Left & Right (QC): 4 Sit to Lying (QC): 4 Lying-Sitting on Side/Bed(QC): 4 Sit to Stand (QC): 4 Chair/Jon-wt-Dzqiz Xfer(QC): 3 Toilet Transfer (QC): 3 Car Transfer (QC): 3 Does the Patient Walk: Yes Walk 10 feet (QC): 3 Walk 50ft with 2 Turns (QC): 3 Walk 150 ft (QC): 3 Walking 10ft on Uneven Surface: 3 1 Step (curb) (QC): 3 4 Steps (QC): 9 12 Steps (QC): 9 Picking up an Object (QC): 3 Does the Pt use WC or Scooter?: Yes Wheel 50 feet with 2 turns (QC: 6 Type: Manual Wheel 150 feet: 6 Type: Manual PT Plan Treatment/Plan Treatment Plan: Continue Plan of Care Treatment Plan: Bed Mobility, Concurrent Therapy, Education, Functional Activity [place], Functional Strength, Group Therapy, Gait, Safety, Therapeutic Exercise, Transfers Treatment Duration: Feb 15, 2023 Frequency: At least 5 of 7 days/Wk (IRF) Estimated Hrs Per Day: Other (75' per Day M-F) Patient and/or Family Agrees t: Yes Time Time In: 0945 Time Out: 1100 DATE: Feb 02, 2023 Total Billed Treatment Time: 75 Total Billed Treatment 1, GT x2 (30m), EX x2 (30m) & FA (15m) KAVIN KAYE UTILITY LINEMAN Feb 02, 2023 12:23
--- NOTE | 2023-02-02 13:06 | Speech Therapy Daily Note ---
Speech Daily Progress Note Subjective Date Seen by Provider: Feb 02, 2023 Time Seen by Provider: 12:30 Pt was sitting in bedside chair and agreeable to session. Objective Pt demonstrates increase in s/s of aspiration during PO intake (increasing cough). Pt continues swallow guidelines with 85% accuracy. MANAGER APPLE has scheduled MBS study 02/03 at 10:30 am. Assessment Assessment Current Status: Fair Progress Treatment Plan Continue Plan of Care Speech Jail Goals Jail Goals Pt will demonstrate diet upgrade trials without s/s of aspiration during PO intake with 5/5 trials. Pt will demonstrate adequate use of safe swallow strategies to eliminate s/s of laryngeal penetration and/or aspiration of safest, least restrictive diet with cues during 80% of therapeutic trials. Speech-Plan Treatment Plan Speech Therapy Treatment Plan: Continue Plan of Care Treatment Duration: Jan 25, 2023 Frequency: At least 5 of 7 days/Wk (IRF) Estimated Hrs Per Day: .5 hour per day Rehab Potential: Good Time Speech Therapy Time In: 12:30 Speech Therapy Time Out: 13:00 DATE: Feb 02, 2023 Total Billed Time: 30 Billed Treatment Time 1 DYST 30 min Evelyn Galeas Feb 02, 2023 13:06
--- NOTE | 2023-02-02 13:27 | Occupational Ther Daily Note ---
OT Current Status-Daily Note Subjective Pt. alert sitting in recliner. No c/o pain. Pt. agreed to therapy. Mental Status/Objective Patient Orientation: Person, Place, Time, Situation ADL-Treatment Pt requested to allow present. Pt ambulated to bathroom using FWW with SBA. Pt able to doff shirt by self in standing with SBA for safety. Pt doffed socks by self sitting on shower bench. Pt's completed shower with pt. Nrsg aware of position. All needs met. Therapy Code Descriptions/Definitions Functional [place] Measure: 0=Not Assessed/NA 4=Minimal Assistance 1=Total Assistance 5=Supervision or Setup 2=Maximal Assistance 6=Modified [place] 3=Moderate Assistance 7=Complete IndependenceSCALE: Activities may be completed with or without assistive devices. 5-Hkhzxqqdvj-fxijbmd completes the activity by him/herself with no assistance from a helper. 5-Set-up or Clean-up Assistance-helper sets up or cleans up; patient completes activity. [place] assists only prior to or following the activity. 4-Supervision or Touching Assistance-helper provides verbal cues and/or touching/steadying and/or contact guard assistance as patient completes activity. Assistance may be provided throughout the activity or intermittently. 3-Partial/Moderate Assistance-helper does LESS THAN HALF the effort. [place] lifts, holds or supports trunk or limbs, but provides less than half the effort. 2-Substantial/Maximal Assistance-helper does MORE THAN HALF the effort. [place] lifts or holds trunk or limbs and provides more than half the effort. 5-Qefhtuxuz-fvwnpw does ALL the effort. Patient does none of the effort to complete the activity. Or, the assistance of 2 or more helpers is required for the patient to complete the activity. If activity was not attempted, code reason: 7-Patient Refused. 9-Not Applicable-not attempted and the patient did not perform the activity before the current illness, exacerbation or injury. 10-Not Attempted due to Environmental Limitations-(lack of equipment, weather restraints, etc.). 88-Not Attempted due to Medical Conditions or Safety Concerns. Other Treatment Pt. completed flexbar exercises 4 exercises to increase hand strengthening and simulation technician, 1 set with 10# bar 10reps. Shoulder rises using 2# hand weights and Skilled instruction for correct techniques and modifications when needed. OT Short Term Goals Short Term Goals Time Frame: Feb 05, 2023 Toileting hygiene: 3 Lower body dressin Putting on/taking off footwear: 3 OT Agricultural Research Director Goals Shelter Goals Time Frame: Feb 26, 2023 Acute change in mental status: 1 Inattention: 0 Disorganized thinkin Altered level of consciousness: 0 Eating (QC): 6 Oral Hygiene (QC): 6 Toileting Hygiene (QC): 6 Shower/Bathe Self (QC): 6 Upper Body Dressing (QC): 6 Lower Body Dressing (QC): 6 On/Off Footwear (QC): 6 Additional Goals: 1-Demonstrate ADL Tasks, 2-Verbalize Understanding, 3- ImproveStrength/Destinee 1=Demonstrate adherence to instructed precautions during ADL tasks. 2=Patient will verbalize/demonstrate understanding of assistive devices/modifications for ADL. 3=Patient will improve strength/tolerance for activity to enable patient to perform ADL's. OT Education/Plan Problem List/Assessment Assessment: Decreased UE Strength Discharge Recommendations Plan/Recommendations: Continue POC Treatment Plan/Plan of Care Patient would benefit from OT for education, treatment and training to promote independence in ADL's, mobility, safety and/or upper extremity function for ADL's. Plan of Care: ADL Retraining, Functional Mobility, Group Exercise/Act as Ind, UE Funct Exercise/Act Treatment Duration: Feb 26, 2023 Frequency: At least 5 of 7 days/Wk (IRF) Estimated Hrs Per Day: Other (75 mins per day) Agreement: Yes Rehab Potential: Good Time Start Time: 13:00 Stop Time: 13:30 DATE: Feb 02, 2023 Total Time Billed (hr/min): 30 Billed Treatment Time 1 visit- EX 1 (20 mins) ADL 1 (10 min) MATTHEW VASQUEZ Feb 02, 2023 13:26
[2023-02-02 14:04] VITALS: BP 127/63
[2023-02-02] MEDS: Sulfamethoxazole/Trimethoprim DS TABLET PO SCH (16:49)
[2023-02-02 20:03] VITALS: BP 122/62
[2023-02-02] MEDS: traZODone 50 MG (DESYREL) TAB PO SCH (20:25)
--- NOTE | 2023-02-03 05:37 | PM&R Progress Note ---
Subjective HPI/CC On Admission Date Seen by Provider: Feb 03, 2023 Time Seen by Provider: 13:00 Subjective/Events-last exam 02/03/2023: Patient doing a lot better Giving 2 Dulcolax suppositories to help with bowels May need soapsuds enema Will monitor closely Working on bladder training 02/02/2023: Patient was to go home Told me his long-term care insurance is charging him $100 a day to be in inpatient rehab Bladder training initiated Incontinence is a concern from his Updated son 02/01/2023: Much improved Walking well No falls No pain Lungs are clear Weaned O2 now 01/31/2023: Patient doing a lot better Weaning down oxygen Lungs are clear Bowels have not moved and maintaining the bowel regimen when he allows 01/30/2023: Doing well No pain Lungs are clear Weaning O2 to 1L/min at bedside Needs to take BM regimen after he refuses it 01/29/2023: Patient dramatically improved Moving around much better No BM but taking bowel regimen No falls Lungs are clear 01/28/2023: Patient dramatically improved Slow recovery still remains No falls No pain Weaning oxygen Son at bedside 01/27/2023: Patient doing much better Appears to have good spirits today at bedside Bowels evacuated We will maintain bowel regimen No dysphagia currently Lungs are clear Oxygen maintain and weaning down 01/26/2023: Rested well last night Slow walking with therapy and 2 assists but it was strong and dramatic improvement Dysphagia improved CXR residual infiltrates Labs reviewed Potassium 3.4 so will initiate supplement BP stable O2 requirements are 4.0L Bowel regimen will be continued until BM Review of Systems General: Fatigue, Malaise Objective Exam Vital Signs Vital Signs Date Time Temp Pulse Resp B/P (MAP) Pulse Ox O2 Delivery O2 Flow Rate FiO2 02/03/23 09:54 94 Room Air 02/03/23 08:00 36.7 80 17 118/59 (78) 01/31/23 19:50 Capillary Refill : General Appearance: No Apparent Distress, WD/WN, Chronically ill HEENT: PERRL/EOMI, Normal ENT Inspection, Pharynx Normal Neck: Full Range of Motion, Normal Inspection, Non Tender, Supple, Carotid Bruit Respiratory: Chest Non Tender, Lungs Clear, Normal Breath Sounds, No Accessory Muscle Use, No Respiratory Distress, Decreased Breath Sounds Cardiovascular: Regular Rate, Rhythm, No Edema, No Gallop, No JVD, No Murmur, Normal Peripheral Pulses Gastrointestinal: Normal Bowel Sounds, No Organomegaly, No Pulsatile Mass, Non Tender, Soft Back: Normal Inspection, No CVA Tenderness, No Vertebral Tenderness Extremity: Normal Capillary Refill, Normal Inspection, Normal Range of Motion, Non Tender, No Calf Tenderness, No Pedal Edema Neurologic/Psychiatric: Alert, Oriented x3, carton lettering machine operator II-XII Norm as Tested, Abnormal Gait, Depressed Affect, Motor Weakness (generalized) Skin: Normal Color, Warm/Dry Lymphatic: No Adenopathy Results/Procedures Lab Patient resulted labs reviewed. FIM Transfers Therapy Code Descriptions/Definitions Functional [place] Measure: 0=Not Assessed/NA 4=Minimal Assistance 1=Total Assistance 5=Supervision or Setup 2=Maximal Assistance 6=Modified [place] 3=Moderate Assistance 7=Complete IndependenceSCALE: Activities may be completed with or without assistive devices. 0-Qsireauqjv-nwbaedx completes the activity by him/herself with no assistance from a helper. 5-Set-up or Clean-up Assistance-helper sets up or cleans up; patient completes activity. [place] assists only prior to or following the activity. 4-Supervision or Touching Assistance-helper provides verbal cues and/or touching/steadying and/or contact guard assistance as patient completes activity. Assistance may be provided throughout the activity or intermittently. 3-Partial/Moderate Assistance-helper does LESS THAN HALF the effort. [place] lifts, holds or supports trunk or limbs, but provides less than half the effort. 2-Substantial/Maximal Assistance-helper does MORE THAN HALF the effort. [place] lifts or holds trunk or limbs and provides more than half the effort. 6-Mgjmykxbe-fdxkgs does ALL the effort. Patient does none of the effort to complete the activity. Or, the assistance of 2 or more helpers is required for the patient to complete the activity. If activity was not attempted, code reason: 7-Patient Refused. 9-Not Applicable-not attempted and the patient did not perform the activity before the current illness, exacerbation or injury. 10-Not Attempted due to Environmental Limitations-(lack of equipment, weather restraints, etc.). 88-Not Attempted due to Medical Conditions or Safety Concerns. Roll Left to Right (QC): 6 (/c bed rail in place) Sit to Lying (QC): 3 (Min (A) to lift (L) LE onto bed) Sit to Stand (QC): 4 (CGA) Chair/Hjt-ls-Wgbbl Xfer(QC): 3 (Min (A) of 1 /c FWW with safety cues to turn completely to chair before beginning to sit) Car Transfer (QC): 88 Gait Training Does the Patient Walk?: Yes Distance: 367+' Walk 10 feet (QC): 4 (CGA) Walk 50 ft with 2 Turns(QC): 4 (CGA) Walk 150 ft (QC): 4 (CGA) Walking 10ft/uneven surface-QC: 3 (x 4 across gym mat /c FWW, cues to turn completely to face mat before attempting to place walker up on mat) Gait Persons Needed: 1 Gait Assistive Device: FWW Wheelchair Training Does the Pt Use a Wheelchair?: No Distance: 135' Wheel 50 ft with 2 turns (QC): 9 Wheel 150 ft (QC): 9 Type of Wheelchair: Manual Stair Training 1 Step (curb) (QC): 88 4 Steps (QC): 3 (min (A) /c (B) rails up/down 4 steps.) 12 Steps (QC): 88 Balance Picking up an Object (QC): 88 ADL-Treatment Eating (QC): 3 (to drink from large hospital cup and straw) Oral Hygiene (QC): 4 Bathing Location: L Arm, R Arm, L Upper Leg, R Upper Leg, L Lower Leg (including foot), R Lower Leg (including foot), Chest, Abdomen, Buttocks, Perineal Area Shower/Bathe Self (QC): 3 (Pt. able to bathe all areas while sitting 95% of the time on shower bench using LH sponge, HH shower, and grabbars with min A. ) Upper Body Dressing (QC): 3 (Mod A with UB clothing with threading over head and pulling down trunk.) Lower Body Dressing (QC): 3 (Pt. able to thread brief while sitting and stands using grabbars to hike then needed assist with threading pants then pt. able to take pants from knees while standing using grabbars to hike, min A balance) On/Off Footwear (QC): 5 (Pt. able to don shoes by self after set up. ) Toileting Hygiene (QC): 1 (assist x2 required.) Toilet Transfer (QC): 1 (min A x2, VCs for safety with transfer) Assessment/Plan Assessment and Plan Assess & Plan/Chief Complaint Assessment: Severe debility following aspiration PNA and respiratory arrest s/p intubation Severe progressive Parkinsonism Dyphagia Severe constipation acute on chronic BPH GERD Hypokalemia Severe constipation acute on chronic Urinary incontinence Plan: Home meds PT OT ST BM regimen 01/28/2023: 01/26/2023: Nebs O2 Replace potassium BM regimen 01/27/2023: Patient dramatically improved Maintain bowel regimen since bowels have evacuated Increase stamina 01/28/2023: Patient dramatically improved Continue aggressive rehab 01/29/2023: Aggressive speech therapy for prevention of aspiration Dramatic improvement 01/30/2023: Focus on regaining strength Wean O2 01/31/2023: Wean oxygen off Bowel regimen 02/01/2023: Weaned O2 off Improved 02/02/2023: Bladder schedule Suppository if needed 02/03/2023: Suppository May need soapsuds enema Continue ambulation (1) HAIM Mitchell DO Feb 03, 2023 05:37
[2023-02-03] MEDS: POTASSIUM BICARB 20 MEQ effervescent TABLET PO SCH (06:14)
[2023-02-03] MEDS: TROSPIUM 20 MG (SANCTURA) TAB PO SCH ×2 (06:14→17:16)
[2023-02-03] MEDS: THERAPEUTIC MULTIVITAMIN W/MINERALS TABLET PO SCH (06:14)
[2023-02-03] MEDS: CARBIDOPA/LEVODOPA 25/100 TABLET PO SCH ×3 (06:14→17:16)
[2023-02-03 08:00] VITALS: BP 118/59
[2023-02-03] MEDS: ENOXAPARIN 40 MG/0.4 ML SYRINGE SC SCH (08:14)
[2023-02-03] MEDS: ASPIRIN 81 MG CHEWABLE TABLET PO SCH (08:15)
[2023-02-03] MEDS: SENNA W/DOCUSATE TABLET PO SCH ×2 (08:15→19:55)
[2023-02-03] MEDS: DOCUSATE SODIUM 100 MG CAPSULE PO SCH ×2 (08:15→19:55)
--- NOTE | 2023-02-03 11:21 | ST Mod Barium Swallow ---
Speech Evaluation-General Medical Diagnosis Parkinson's Disease Onset Date: Jan 20, 2023 Therapy Diagnosis Therapy Diagnosis: Dysphagia Precautions Precautions: Fall, Aspiration Precautions/Isolations: Aspiration, Standard Precautions Referral Referring Physician: Guerline Reason for Referral: Evaluation/Treatment Medical History Pertinent Medical History: HTN, Parkinson's HTN, Parkinson's Disease, bleeding ulcer, back surgery, knee surgery Current History 01/20/23 EMS [facility] due to choking episode followed by respiratory arrest (~5 min CPR, questionably lost pulse). Pt was intubated upon arrival to hospital. Pt transferred to [facility] for pulmonology consult, bronchoscopy and further management. Extubated 01/21/23. Pt transferred to [facility] 01/25/23 Reviewed History: Yes Social History Home: Assisted Living ([facility] in [place], [place]) Current Living Status: Spouse Speech Mod Barium Swallow Prior Level of Function Regular diet and thin liquids, PO Oral Motor Skills Lingual Protrusion: Normal Lingual ROM: Normal Lingual Strength: Normal Velum: Normal Volitional Dry Swallow: Yes Voluntary Cough: Yes Can Clear Throat Volitionally: Yes Textures-Lateral View Lateral View Food Presentation: Thin Liquid via Cup (single swallow and successive swallows ), Thin Liquid via Straw, Pureed Solids (Applesauce ), Ground Solids (Ground meat, cottage cheese), Mechanial Soft Solids (Banana ), Regular Solids (Grahamcracker) Oral Phase Labial Closure: No Impairment (WFL) Bolus Formation Pooling L/R: No Impairment (WFL) Bolus Formation Placement: No Impairment (WFL) Mastication Rotary Chew: No Impairment (WFL) A/P Lingual Propulsion: No Impairment (WFL) Lingual Movement: No Impairment (WFL) Oral Phase Residue: Minimal Impairment Oral residue after mechanical soft and regular bolus Pharyngeal Phase Swallow Response: No Impairment (WFL) Base of Tongue: No Impairment (WFL) Epiglottic Movement: No Impairment (WFL) Laryngeal Elevation: No Impairment (WFL) Vallecular Residue: Mild Cleared with 2nd swallow Pharyngeal Wall Residue: No Impairment (WFL) Piriform Sinus Residue: No Impairment (WFL) Laryngeal Penetration: Mild Aspiration Observations: None Performed-A/P View Not Applicable/Performed Observations View Residue Observed: Valleculae Right, Valleculae Left Residue was observed at the vallecular level, due to lateral view of MBS study, unknown at what location (right or left). Pt able to clear with 2nd swallow. Summary/Impressions Oral Phase Impression: Mild Impairment Lip closure was WFL and resulted in no labial escape of bolus. Tongue control was WFL, with no escape of bolus. Bolus prep and mastication was WFL. Bolus transport/lingual motion was WFL. Oral residue was collected on oral structures. Initiation of pharyngeal swallow was WFL. Soft palate elevation was WFL. Laryngeal elevation was WFL. Anterior hyoid excursion was WFL. Epiglottic movement resulted in full inversion. Aspiration was observed with swallow of thin liquid and there was residue at the vallecular level, but was cleared with a second swallow. Speech Residential Goals Candle Pourer Goals Pt will demonstrate diet upgrade trials without s/s of aspiration during PO intake with 5/5 trials. Pt will demonstrate adequate use of safe swallow strategies to eliminate s/s of laryngeal penetration and/or aspiration of safest, least restrictive diet with cues during 80% of therapeutic trials. Speech-Plan Treatment Plan Speech Therapy Treatment Plan: Continue Plan of Care Treatment Duration: Jan 25, 2023 Frequency: At least 5 of 7 days/Wk (IRF) Estimated Hrs Per Day: .5 hour per day Rehab Potential: Good Pt/Family Agrees to Plan: Yes Safety Risks/Education Teaching Recipient: Patient Teaching Methods: Discussion Response to Teaching: Verbalize Understanding Education Topics Provided: safe swallow guidelines. Time Speech Therapy Time In: 10:30 Speech Therapy Time Out: 11:00 DATE: Feb 03, 2023 Total Billed Time: 30 Billed Treatment Time 1 MOD 30 min Evelyn aGleas Feb 03, 2023 11:21
--- NOTE | 2023-02-03 11:29 | Diagnostic Imaging Report ---
INDICATION: Dysphagia. TECHNIQUE: Procedure was performed in conjunction with speech pathology. Video fluoroscopy was performed during the swallowing of barium at multiple consistencies. Total of 69 seconds of fluoroscopic time was utilized. Reference air kerma is 3.6 mGy. FINDINGS: Patient ingested thin barium as well as cottage cheese, banana, ground meat, applesauce and cracker consistency. There was episode of penetration with thin barium but no aspiration. All other consistencies were unremarkable. No significant vallecular or pyriform sinus residue was demonstrated. IMPRESSION: Penetration with thin barium. No aspiration was observed. The study is otherwise unremarkable. Dictated by: Dictated on workstation # [id number]
--- NOTE | 2023-02-03 12:15 | Physical Therapy Daily Note ---
PT Daily Note-Current Subjective Pt sitting in recliner w/Sp present upon arrival. Pt agrees to PT. Pain Location: No Pain Reported Section J - Health Conditions 1. Rarely or not at all 2. Occasionally 3. Frequently 4. Almost constantly 8. Unable to answer Pain Effect on Sleep: 1 Pain Interference with Therapy: 1 Pain Interference w/Day-to-Day: 1 Mental Status Patient Orientation: Person, Place, Time, Situation Transfers SCALE: Activities may be completed with or without assistive devices. 6-Unfbrxbtpv-zhhtkgt completes the activity by him/herself with no assistance from a helper. 5-Set-up or Clean-up Assistance-helper sets up or cleans up; patient completes activity. [place] assists only prior to or following the activity. 4-Supervision or Touching Assistance-helper provides verbal cues and/or touching/steadying and/or contact guard assistance as patient completes activity. Assistance may be provided throughout the activity or intermittently. 3-Partial/Moderate Assistance-helper does LESS THAN HALF the effort. [place] lifts, holds or supports trunk or limbs, but provides less than half the effort. 2-Substantial/Maximal Assistance-helper does MORE THAN HALF the effort. [place] lifts or holds trunk or limbs and provides more than half the effort. 3-Ztbfgtnxe-oivqki does ALL the effort. Patient does none of the effort to complete the activity. Or, the assistance of 2 or more helpers is required for the patient to complete the activity. If activity was not attempted, code reason: 7-Patient Refused. 9-Not Applicable-not attempted and the patient did not perform the activity before the current illness, exacerbation or injury. 10-Not Attempted due to Environmental Limitations-(lack of equipment, weather restraints, etc.). 88-Not Attempted due to Medical Conditions or Safety Concerns. Roll Left & Right (QC): 6 Sit to Lying (QC): 6 Lying to Sitting/Side of Bed(Q: 6 Sit to Stand (QC): 5 Chair/Gcz-yi-Yhlsa Xfer(QC): 5 Toilet Transfer (QC): 5 Car Transfer (QC): 5 Weight Bearing Full Weight Bearing Full Weight Bearing Gait Training Does the Patient Walk?: Yes Distance: 375' Walk 10 feet (QC): 5 Walk 50 ft with 2 Turns(QC): 5 Walk 150 ft (QC): 5 Walking 10ft/uneven surface-QC: 5 Gait Assistive Device: FWW Wheelchair Training Does the Pt Use a Wheelchair?: No Stair Training Stair Training: Handrails/: 2 handrails #of Steps: 4 1 Step (curb) (QC): 5 4 Steps (QC): 5 12 Steps (QC): 9 Stairs: Pattern: Step to Balance Picking up an Object (QC): 5 Treatments Pt completes QC scoring items listed above before returning to room at end of tx. SW was contacted about possibility of d/c early per pt & sp request. Pt resting in recliner w/all needs met, call light in hand. Assessment Current Status: Good Progress Pt has improved w/independence & safety of transfers, activity tolerance & mobility. PT Usp Goals Roll Scale Worker Goals PT Usp Goals Time Frame: Feb 15, 2023 Roll Left & Right (QC): 4 Sit to Lying (QC): 4 Lying-Sitting on Side/Bed(QC): 4 Sit to Stand (QC): 4 Chair/Nge-of-Ggajp Xfer(QC): 3 Toilet Transfer (QC): 3 Car Transfer (QC): 3 Does the Patient Walk: Yes Walk 10 feet (QC): 3 Walk 50ft with 2 Turns (QC): 3 Walk 150 ft (QC): 3 Walking 10ft on Uneven Surface: 3 1 Step (curb) (QC): 3 4 Steps (QC): 9 12 Steps (QC): 9 Picking up an Object (QC): 3 Does the Pt use WC or Scooter?: Yes Wheel 50 feet with 2 turns (QC: 6 Type: Manual Wheel 150 feet: 6 Type: Manual PT Plan Treatment/Plan Treatment Plan: Continue Plan of Care Treatment Plan: Bed Mobility, Concurrent Therapy, Education, Functional Activity [place], Functional Strength, Group Therapy, Gait, Safety, Therapeutic Exercise, Transfers Treatment Duration: Feb 15, 2023 Frequency: At least 5 of 7 days/Wk (IRF) Estimated Hrs Per Day: Other (75' per Day M-F) Patient and/or Family Agrees t: Yes Safety Risks/Education Patient Education: Steps, Correct Positioning Teaching Recipient: Patient Teaching Methods: Discussion Response to Teaching: Verbalize Understanding Time Time In: 1100 Time Out: 1200 DATE: Feb 03, 2023 Total Billed Treatment Time: 60 Total Billed Treatment 1, FA x2 (30m) & GT x2 (30m) KAVIN KAYE CUSTOM GRINDER Feb 03, 2023 12:15
--- NOTE | 2023-02-03 13:13 | Occupational Ther Daily Note ---
OT Current Status-Daily Note Subjective Pt received sitting in recliner. Pt very pleasant and willing to participate in therapy. Pt reports that he is hoping to return home today. Pain Numeric Pain Scale: 0-No Pain Location: No Pain Reported Mental Status/Objective Patient Orientation: Person, Place, Time, Situation ADL-Treatment Therapy Code Descriptions/Definitions Functional [place] Measure: 0=Not Assessed/NA 4=Minimal Assistance 1=Total Assistance 5=Supervision or Setup 2=Maximal Assistance 6=Modified [place] 3=Moderate Assistance 7=Complete IndependenceSCALE: Activities may be completed with or without assistive devices. 0-Jinjvhqjnr-ocqmxky completes the activity by him/herself with no assistance from a helper. 5-Set-up or Clean-up Assistance-helper sets up or cleans up; patient completes activity. [place] assists only prior to or following the activity. 4-Supervision or Touching Assistance-helper provides verbal cues and/or touching/steadying and/or contact guard assistance as patient completes activity. Assistance may be provided throughout the activity or intermittently. 3-Partial/Moderate Assistance-helper does LESS THAN HALF the effort. [place] lifts, holds or supports trunk or limbs, but provides less than half the effort. 2-Substantial/Maximal Assistance-helper does MORE THAN HALF the effort. [place] lifts or holds trunk or limbs and provides more than half the effort. 7-Idryyarab-qieokl does ALL the effort. Patient does none of the effort to complete the activity. Or, the assistance of 2 or more helpers is required for the patient to complete the activity. If activity was not attempted, code reason: 7-Patient Refused. 9-Not Applicable-not attempted and the patient did not perform the activity before the current illness, exacerbation or injury. 10-Not Attempted due to Environmental Limitations-(lack of equipment, weather restraints, etc.). 88-Not Attempted due to Medical Conditions or Safety Concerns. Eating (QC): 5 On/Off Footwear: 4 (to don/doff socks) Toileting Hygiene (QC): 4 (in sitting) Toilet Transfer (QC): 3 (for sit to stand) Other Treatment Pt completed functional mobility for 30ft, ~150ft with FWW and supervision for balance, requiring no cues for safety. Pt completed functional dynamic sitting balance activity for ~15mins x 3 in unsupported sitting with supervision. Pt completed functional dynamic standing activity, reach outside of YEN for ~7mins x3 with supervision and no cues for safety. Pt completed UE strengthening exercises with 5# dumbbell and green flexbar, emphasizing shoulder flexion, abduction, adduction; elbow flexion, extension; director for beauty [employer] strength. Pt completed peg board activity in standing with supervision, completing 50% of large board before taking rest break. Education OT Patient Education: Correct positioning, Energy conservation, Home exercise program, Modified ADL techniques, Progress toward Goal/Update tx plan, Purpose of tx/functional activities, Rehab process, Safety issues, Transfer techniques Teaching Recipient: Patient Teaching Methods: Demonstration, Discussion Response to Teaching: Verbalize Understanding, Return Demonstration OT Short Term Goals Short Term Goals Time Frame: Feb 05, 2023 Toileting hygiene: 3 Lower body dressin Putting on/taking off footwear: 3 OT Senior Living Goals Senior Living Goals Time Frame: Feb 26, 2023 Acute change in mental status: 1 Inattention: 0 Disorganized thinkin Altered level of consciousness: 0 Eating (QC): 6 Oral Hygiene (QC): 6 Toileting Hygiene (QC): 6 Shower/Bathe Self (QC): 6 Upper Body Dressing (QC): 6 Lower Body Dressing (QC): 6 On/Off Footwear (QC): 6 Additional Goals: 1-Demonstrate ADL Tasks, 2-Verbalize Understanding, 3-ImproveStrength/Destinee 1=Demonstrate adherence to instructed precautions during ADL tasks. 2=Patient will verbalize/demonstrate understanding of assistive devices/modifications for ADL. 3=Patient will improve strength/tolerance for activity to enable patient to perform ADL's. OT Education/Plan Problem List/Assessment Assessment: Decreased Activ Tolerance, Decreased Safety Aware, Decreased UE Strength, Impaired Bed Mobility, Impaired Coordination, Impaired Funct Balance, Impaired I ADL's, Impaired Self-Care Skills Discharge Recommendations Plan/Recommendations: Continue POC Treatment Plan/Plan of Care Treatment,Training & Education: Yes Patient would benefit from OT for education, treatment and training to promote independence in ADL's, mobility, safety and/or upper extremity function for ADL 's. Plan of Care: ADL Retraining, Functional Mobility, Group Exercise/Act as Ind, UE Funct Exercise/Act Treatment Duration: Feb 26, 2023 Frequency: At least 5 of 7 days/Wk (IRF) Estimated Hrs Per Day: Other (75 mins per day) Agreement: Yes Rehab Potential: Good Time Start Time: 07:55 Stop Time: 09:25 DATE: Feb 03, 2023 Total Time Billed (hr/min): 90 Billed Treatment Time 1, ADL 1, FA 3, EX 2 Nahomy Silvestre OTR/L Feb 03, 2023 13:13
[2023-02-03] MEDS: BISACODYL 10 MG SUPPOSITORY PR PRN (13:27)
[2023-02-03] MEDS: ACETAMINOPHEN 325 MG TABLET PO PRN ×2 (14:44→19:56)
[2023-02-03] MEDS: Sulfamethoxazole/Trimethoprim DS TABLET PO SCH (17:16)
[2023-02-03] MEDS: traZODone 50 MG (DESYREL) TAB PO SCH (19:55)
[2023-02-03 20:09] VITALS: BP 118/69
--- NOTE | 2023-02-04 05:33 | PM&R Progress Note ---
Subjective HPI/CC On Admission Date Seen by Provider: Feb 04, 2023 Time Seen by Provider: 10:00 Subjective/Events-last exam 02/04/2023: Much improved No falls No pain Weaned off O2 02/03/2023: Patient doing a lot better Giving 2 Dulcolax suppositories to help with bowels May need soapsuds enema Will monitor closely Working on bladder training 02/02/2023: Patient was to go home Told me his long-term care insurance is charging him $100 a day to be in inpatient rehab Bladder training initiated Incontinence is a concern from his Updated son 02/01/2023: Much improved Walking well No falls No pain Lungs are clear Weaned O2 now 01/31/2023: Patient doing a lot better Weaning down oxygen Lungs are clear Bowels have not moved and maintaining the bowel regimen when he allows 01/30/2023: Doing well No pain Lungs are clear Weaning O2 to 1L/min at bedside Needs to take BM regimen after he refuses it 01/29/2023: Patient dramatically improved Moving around much better No BM but taking bowel regimen No falls Lungs are clear 01/28/2023: Patient dramatically improved Slow recovery still remains No falls No pain Weaning oxygen Son at bedside 01/27/2023: Patient doing much better Appears to have good spirits today at bedside Bowels evacuated We will maintain bowel regimen No dysphagia currently Lungs are clear Oxygen maintain and weaning down 01/26/2023: Rested well last night Slow walking with therapy and 2 assists but it was strong and dramatic improvement Dysphagia improved CXR residual infiltrates Labs reviewed Potassium 3.4 so will initiate supplement BP stable O2 requirements are 4.0L Bowel regimen will be continued until BM Review of Systems General: Fatigue, Malaise Objective Exam Vital Signs Vital Signs Date Time Temp Pulse Resp B/P (MAP) Pulse Ox O2 Delivery O2 Flow Rate FiO2 02/04/23 07:56 36.6 75 18 119/60 (79) 96 NIV CPAP 02/03/23 20:09 2.00 Capillary Refill : General Appearance: No Apparent Distress, WD/WN, Chronically ill HEENT: PERRL/EOMI, Normal ENT Inspection, Pharynx Normal Neck: Full Range of Motion, Normal Inspection, Non Tender, Supple, Carotid Bruit Respiratory: Chest Non Tender, Lungs Clear, Normal Breath Sounds, No Accessory Muscle Use, No Respiratory Distress, Decreased Breath Sounds Cardiovascular: Regular Rate, Rhythm, No Edema, No Gallop, No JVD, No Murmur, Normal Peripheral Pulses Gastrointestinal: Normal Bowel Sounds, No Organomegaly, No Pulsatile Mass, Non Tender, Soft Back: Normal Inspection, No CVA Tenderness, No Vertebral Tenderness Extremity: Normal Capillary Refill, Normal Inspection, Normal Range of Motion, Non Tender, No Calf Tenderness, No Pedal Edema Neurologic/Psychiatric: Alert, Oriented x3, assembly leader II-XII Norm as Tested, Abnormal Gait, Depressed Affect, Motor Weakness (generalized) Skin: Normal Color, Warm/Dry Lymphatic: No Adenopathy Results/Procedures Lab Patient resulted labs reviewed. FIM Transfers Therapy Code Descriptions/Definitions Functional [place] Measure: 0=Not Assessed/NA 4=Minimal Assistance 1=Total Assistance 5=Supervision or Setup 2=Maximal Assistance 6=Modified [place] 3=Moderate Assistance 7=Complete IndependenceSCALE: Activities may be completed with or without assistive devices. 4-Ukosunyzdg-tybozag completes the activity by him/herself with no assistance from a helper. 5-Set-up or Clean-up Assistance-helper sets up or cleans up; patient completes activity. [place] assists only prior to or following the activity. 4-Supervision or Touching Assistance-helper provides verbal cues and/or touching/steadying and/or contact guard assistance as patient completes activity. Assistance may be provided throughout the activity or intermittently. 3-Partial/Moderate Assistance-helper does LESS THAN HALF the effort. [place] lifts, holds or supports trunk or limbs, but provides less than half the effort. 2-Substantial/Maximal Assistance-helper does MORE THAN HALF the effort. [place] lifts or holds trunk or limbs and provides more than half the effort. 1-Eentxkzws-rxhpun does ALL the effort. Patient does none of the effort to complete the activity. Or, the assistance of 2 or more helpers is required for the patient to complete the activity. If activity was not attempted, code reason: 7-Patient Refused. 9-Not Applicable-not attempted and the patient did not perform the activity before the current illness, exacerbation or injury. 10-Not Attempted due to Environmental Limitations-(lack of equipment, weather restraints, etc.). 88-Not Attempted due to Medical Conditions or Safety Concerns. Roll Left to Right (QC): 6 Sit to Lying (QC): 6 Sit to Stand (QC): 5 Chair/Jip-hl-Icvsc Xfer(QC): 5 Car Transfer (QC): 5 Gait Training Does the Patient Walk?: Yes Distance: 375' Walk 10 feet (QC): 5 Walk 50 ft with 2 Turns(QC): 5 Walk 150 ft (QC): 5 Walking 10ft/uneven surface-QC: 5 Gait Persons Needed: 1 Gait Assistive Device: FWW Wheelchair Training Does the Pt Use a Wheelchair?: No Distance: 135' Wheel 50 ft with 2 turns (QC): 9 Wheel 150 ft (QC): 9 Type of Wheelchair: Manual Stair Training Stair Training: Handrails/: 2 handrails #of Steps: 4 1 Step (curb) (QC): 5 4 Steps (QC): 5 12 Steps (QC): 9 Stairs: Pattern: Step to Balance Picking up an Object (QC): 5 ADL-Treatment Eating (QC): 5 Oral Hygiene (QC): 4 Bathing Location: L Arm, R Arm, L Upper Leg, R Upper Leg, L Lower Leg (including foot), R Lower Leg (including foot), Chest, Abdomen, Buttocks, Perineal Area Shower/Bathe Self (QC): 3 (Pt. able to bathe all areas while sitting 95% of the time on shower bench using LH sponge, HH shower, and grabbars with min A. ) Upper Body Dressing (QC): 3 (Mod A with UB clothing with threading over head and pulling down trunk.) Lower Body Dressing (QC): 3 (Pt. able to thread brief while sitting and stands using grabbars to hike then needed assist with threading pants then pt. able to take pants from knees while standing using grabbars to hike, min A balance) On/Off Footwear (QC): 4 (to don/doff socks) Toileting Hygiene (QC): 4 (in sitting) Toilet Transfer (QC): 3 (for sit to stand) Assessment/Plan Assessment and Plan Assess & Plan/Chief Complaint Assessment: Severe debility following aspiration PNA and respiratory arrest s/p intubation Severe progressive Parkinsonism Dyphagia Severe constipation acute on chronic BPH GERD Hypokalemia Severe constipation acute on chronic Urinary incontinence Plan: Home meds PT OT ST BM regimen 01/28/2023: 01/26/2023: Nebs O2 Replace potassium BM regimen 01/27/2023: Patient dramatically improved Maintain bowel regimen since bowels have evacuated Increase stamina 01/28/2023: Patient dramatically improved Continue aggressive rehab 01/29/2023: Aggressive speech therapy for prevention of aspiration Dramatic improvement 01/30/2023: Focus on regaining strength Wean O2 01/31/2023: Wean oxygen off Bowel regimen 02/01/2023: Weaned O2 off Improved 02/02/2023: Bladder schedule Suppository if needed 02/03/2023: Suppository May need soapsuds enema Continue ambulation 02/04/2023: Monitor closely Fall risk Incontinence management (1) HAIM Mitchell DO Feb 04, 2023 05:33
[2023-02-04] MEDS: POTASSIUM BICARB 20 MEQ effervescent TABLET PO SCH (06:18)
[2023-02-04] MEDS: TROSPIUM 20 MG (SANCTURA) TAB PO SCH ×2 (06:18→16:50)
[2023-02-04] MEDS: CARBIDOPA/LEVODOPA 25/100 TABLET PO SCH ×3 (06:18→17:59)
[2023-02-04] MEDS: THERAPEUTIC MULTIVITAMIN W/MINERALS TABLET PO SCH (06:18)
[2023-02-04 07:56] VITALS: BP 119/60
[2023-02-04] MEDS: ACETAMINOPHEN 325 MG TABLET PO PRN ×3 (09:10→20:48)
[2023-02-04] MEDS: ASPIRIN 81 MG CHEWABLE TABLET PO SCH (09:10)
[2023-02-04] MEDS: ENOXAPARIN 40 MG/0.4 ML SYRINGE SC SCH (09:13)
--- NOTE | 2023-02-04 09:13 | Occupational Ther Daily Note ---
OT Current Status-Daily Note Subjective Pt received sitting in recliner. Pt very pleasant and agreeable to therapy. Pain Numeric Pain Scale: 2 Mental Status/Objective Patient Orientation: Person, Place, Time, Situation ADL-Treatment Therapy Code Descriptions/Definitions Functional [place] Measure: 0=Not Assessed/NA 4=Minimal Assistance 1=Total Assistance 5=Supervision or Setup 2=Maximal Assistance 6=Modified [place] 3=Moderate Assistance 7=Complete IndependenceSCALE: Activities may be completed with or without assistive devices. 3-Luiikcqbdu-jbovcej completes the activity by him/herself with no assistance from a helper. 5-Set-up or Clean-up Assistance-helper sets up or cleans up; patient completes activity. [place] assists only prior to or following the activity. 4-Supervision or Touching Assistance-helper provides verbal cues and/or touching/steadying and/or contact guard assistance as patient completes activity. Assistance may be provided throughout the activity or intermittently. 3-Partial/Moderate Assistance-helper does LESS THAN HALF the effort. [place] lifts, holds or supports trunk or limbs, but provides less than half the effort. 2-Substantial/Maximal Assistance-helper does MORE THAN HALF the effort. [place] lifts or holds trunk or limbs and provides more than half the effort. 4-Gohcjyzro-tvezak does ALL the effort. Patient does none of the effort to complete the activity. Or, the assistance of 2 or more helpers is required for the patient to complete the activity. If activity was not attempted, code reason: 7-Patient Refused. 9-Not Applicable-not attempted and the patient did not perform the activity before the current illness, exacerbation or injury. 10-Not Attempted due to Environmental Limitations-(lack of equipment, weather restraints, etc.). 88-Not Attempted due to Medical Conditions or Safety Concerns. Oral Hygiene (QC): 4 (standing at sink ) Lower Body Dressing (QC): 3 (to thread legs, pulled up pants independently ) On/Off Footwear: 3 (to don/doff socks) Toileting Hygiene (QC): 4 Toilet Transfer (QC): 4 Other Treatment Pt completed functional mobility with FWW for ~30ft, 150ft with supervision and no cues for safety. Pt completed functional dynamic standing activities for 10mins x3 with supervision and no cues for safety. Pt completed functional dynamic sitting activity for 15mins x2 with supervision and no cues for safety. Pt completed UE strengthening exercises with 5# and red theraband with supervision, emphasizing shoulder flexion, abduction, adduction; elbow flexion, extension; and conventions assistant strengthening. Education OT Patient Education: Correct positioning, Energy conservation, Home exercise program, Modified ADL techniques, Progress toward Goal/Update tx plan, Purpose of tx/functional activities, Rehab process, Safety issues, Transfer techniques, Use of adapted equipment Teaching Recipient: Patient Teaching Methods: Demonstration, Discussion Response to Teaching: Verbalize Understanding, Return Demonstration OT Short Term Goals Short Term Goals Time Frame: Feb 05, 2023 Toileting hygiene: 3 Lower body dressin Putting on/taking off footwear: 3 OT Vineyardist Goals Vineyardist Goals Time Frame: Feb 26, 2023 Acute change in mental status: 1 Inattention: 0 Disorganized thinkin Altered level of consciousness: 0 Eating (QC): 6 Oral Hygiene (QC): 6 Toileting Hygiene (QC): 6 Shower/Bathe Self (QC): 6 Upper Body Dressing (QC): 6 Lower Body Dressing (QC): 6 On/Off Footwear (QC): 6 Additional Goals: 1-Demonstrate ADL Tasks, 2-Verbalize Understanding, 3- ImproveStrength/Destinee 1=Demonstrate adherence to instructed precautions during ADL tasks. 2=Patient will verbalize/demonstrate understanding of assistive devices/modifications for ADL. 3=Patient will improve strength/tolerance for activity to enable patient to perform ADL's. OT Education/Plan Problem List/Assessment Assessment: Decreased Activ Tolerance, Decreased Safety Aware, Decreased UE Strength, Impaired Bed Mobility, Impaired Coordination, Impaired Funct Balance, Impaired I ADL's, Impaired Self-Care Skills Discharge Recommendations Plan/Recommendations: Continue POC Treatment Plan/Plan of Care Treatment,Training & Education: Yes Patient would benefit from OT for education, treatment and training to promote independence in ADL's, mobility, safety and/or upper extremity function for ADL's. Plan of Care: ADL Retraining, Functional Mobility, Group Exercise/Act as Ind, UE Funct Exercise/Act Treatment Duration: Feb 26, 2023 Frequency: At least 5 of 7 days/Wk (IRF) Estimated Hrs Per Day: Other (75 mins per day) Agreement: Yes Rehab Potential: Good Time Start Time: 08:00 Stop Time: 09:15 DATE: Feb 04, 2023 Total Time Billed (hr/min): 75 Billed Treatment Time 1, ADL 2, FA 3 Nahomy Silvestre OTR/L Feb 04, 2023 09:13
[2023-02-04] MEDS: DOCUSATE SODIUM 100 MG CAPSULE PO SCH ×2 (09:16→20:48)
[2023-02-04] MEDS: SENNA W/DOCUSATE TABLET PO SCH ×2 (09:16→20:48)
--- NOTE | 2023-02-04 09:43 | Speech Therapy Daily Note ---
Speech Daily Progress Note Subjective Date Seen by Provider: Feb 04, 2023 Time Seen by Provider: 07:00 Pt sitting up in recliner eating breakfast when SECURITY CLERK arrives. Pt asked about results of his barium swallow that was completed. He said he thought the primary SECURITY CLERK would discuss those results with him tomorrow. Pt did not report any pain this date. Pt pleasant and cooperative throughout session. Pain Location: No Pain Reported Objective Pt eats breakfast, he demonstrates a throat clear following a bite of solids, but did not demonstrate any other overt s/sx of aspiration. Pt completes the following swallowing exercises: grace x8 effortful swallow x7 lingual protrusion x20 lingual retraction x20 Pt requires verbal reminders to take smaller bites. Assessment Assessment Current Status: Good Progress Treatment Plan Continue Plan of Care Speech Bulk Coolers Installer Goals Bulk Coolers Installer Goals Pt will demonstrate diet upgrade trials without s/s of aspiration during PO intake with 5/5 trials. Pt will demonstrate adequate use of safe swallow strategies to eliminate s/s of laryngeal penetration and/or aspiration of safest, least restrictive diet with cues during 80% of therapeutic trials. Speech-Plan Patient/Family Goals Patient/Family Goals: Pt's goal is to return home with family. Treatment Plan Speech Therapy Treatment Plan: Continue Plan of Care Treatment Duration: Jan 25, 2023 Frequency: At least 5 of 7 days/Wk (IRF) Estimated Hrs Per Day: .5 hour per day Rehab Potential: Good Pt/Family Agrees to Plan: Yes Safety Risks/Education Teaching Recipient: Patient Teaching Methods: Discussion Response to Teaching: Verbalize Understanding Education Topics Provided: Pt educated on safe swallowing strategies and purpose of exercises. Pt recetive and verbalized understanding. Time Speech Therapy Time In: 07:00 Speech Therapy Time Out: 07:30 DATE: Feb 04, 2023 Total Billed Time: 30 Billed Treatment Time Dys Tx Jai Barragan Speech Therapy Feb 04, 2023 09:43
--- NOTE | 2023-02-04 12:10 | Physical Therapy Daily Note ---
PT Daily Note-Current Subjective Pt found seated in recliner /c family present upon entry. Agreed to PT. Reports that he is not having any pain today. Pain Section J - Health Conditions 1. Rarely or not at all 2. Occasionally 3. Frequently 4. Almost constantly 8. Unable to answer Pain Effect on Sleep: 1 Pain Interference with Therapy: 1 Pain Interference w/Day-to-Day: 1 Mental Status Patient Orientation: Person, Place Transfers SCALE: Activities may be completed with or without assistive devices. 3-Azgucoybyi-xxwbkjw completes the activity by him/herself with no assistance from a helper. 5-Set-up or Clean-up Assistance-helper sets up or cleans up; patient completes activity. [place] assists only prior to or following the activity. 4-Supervision or Touching Assistance-helper provides verbal cues and/or touching/steadying and/or contact guard assistance as patient completes activity. Assistance may be provided throughout the activity or intermittently. 3-Partial/Moderate Assistance-helper does LESS THAN HALF the effort. [place] lifts, holds or supports trunk or limbs, but provides less than half the effort. 2-Substantial/Maximal Assistance-helper does MORE THAN HALF the effort. [place] lifts or holds trunk or limbs and provides more than half the effort. 2-Dxcriykls-jpgmni does ALL the effort. Patient does none of the effort to complete the activity. Or, the assistance of 2 or more helpers is required for the patient to complete the activity. If activity was not attempted, code reason: 7-Patient Refused. 9-Not Applicable-not attempted and the patient did not perform the activity before the current illness, exacerbation or injury. 10-Not Attempted due to Environmental Limitations-(lack of equipment, weather restraints, etc.). 88-Not Attempted due to Medical Conditions or Safety Concerns. Sit to Stand (QC): 6 Weight Bearing Full Weight Bearing Full Weight Bearing Gait Training Does the Patient Walk?: Yes Distance: 600, 200 feet Walk 10 feet (QC): 5 Walk 50 ft with 2 Turns(QC): 5 Walk 150 ft (QC): 5 Gait Persons Needed: 1 Gait Assistive Device: FWW Treatments Supine Therapeutic Exercises (B) x 20ea: - Hip abd - Hip add - SLRs - Heel slides - Quad sets - Ankle pumps Assessment Current Status: Excellent Progress Pt performs sit to stand transfer independently from recliner /c use of B armrests for push off. Pt ambulated /c set up assist only for FWW placement. He ambulates up to 600 feet /c use of a FWW before requesting a short seated rest break. No loss of balance displayed throughout. Tolerated all therapeutic exercises well. Pt displays good overall muscle strength and endurance throughout visit. Pt left seated in recliner /c call light in place and all needs met post-treatment. Continue to progress pt per POC. PT Sales Development Director Goals Sales Development Director Goals PT [facility] Goals Time Frame: Feb 15, 2023 Roll Left & Right (QC): 4 Sit to Lying (QC): 4 Lying-Sitting on Side/Bed(QC): 4 Sit to Stand (QC): 4 Chair/Elm-gm-Ucyep Xfer(QC): 3 Toilet Transfer (QC): 3 Car Transfer (QC): 3 Does the Patient Walk: Yes Walk 10 feet (QC): 3 Walk 50ft with 2 Turns (QC): 3 Walk 150 ft (QC): 3 Walking 10ft on Uneven Surface: 3 1 Step (curb) (QC): 3 4 Steps (QC): 9 12 Steps (QC): 9 Picking up an Object (QC): 3 Does the Pt use WC or Scooter?: Yes Wheel 50 feet with 2 turns (QC: 6 Type: Manual Wheel 150 feet: 6 Type: Manual PT Plan Treatment/Plan Treatment Plan: Continue Plan of Care Treatment Plan: Bed Mobility, Concurrent Therapy, Education, Functional Activity [place], Functional Strength, Group Therapy, Gait, Safety, Therapeutic Exercise, Transfers Treatment Duration: Feb 15, 2023 Frequency: At least 5 of 7 days/Wk (IRF) Estimated Hrs Per Day: Other (75' per Day M-F) Patient and/or Family Agrees t: Yes Time Time In: 1045 Time Out: 1200 DATE: Feb 04, 2023 Total Billed Treatment Time: 75 Total Billed Treatment 1 visit GT x 3 EX x 1 FA x 1 PABLITO ROBERTS SOCIAL SCIENCE MANAGER Feb 04, 2023 12:10
[2023-02-04] MEDS: Sulfamethoxazole/Trimethoprim DS TABLET PO SCH (16:50)
[2023-02-04 20:15] VITALS: BP 124/64
[2023-02-04] MEDS: LACTULOSE SYRUP 10GM/15ML 30ML UDC PO PRN (20:48)
[2023-02-04] MEDS: traZODone 50 MG (DESYREL) TAB PO SCH (20:48)
[2023-02-05] MEDS: ACETAMINOPHEN 325 MG TABLET PO PRN ×3 (02:48→20:42)
[2023-02-05] MEDS: POTASSIUM BICARB 20 MEQ effervescent TABLET PO SCH (05:45)
[2023-02-05] MEDS: TROSPIUM 20 MG (SANCTURA) TAB PO SCH ×2 (05:46→16:06)
[2023-02-05] MEDS: CARBIDOPA/LEVODOPA 25/100 TABLET PO SCH ×3 (05:46→17:57)
[2023-02-05] MEDS: THERAPEUTIC MULTIVITAMIN W/MINERALS TABLET PO SCH (05:46)
--- NOTE | 2023-02-05 06:56 | PM&R Progress Note ---
Subjective HPI/CC On Admission Date Seen by Provider: Feb 05, 2023 Time Seen by Provider: 12:30 Subjective/Events-last exam 02/05/2023: Patient doing better Bowel regimen will include lactulose twice daily scheduled Reviewed meds and labs Feels good at bedside 02/04/2023: Much improved No falls No pain Weaned off O2 02/03/2023: Patient doing a lot better Giving 2 Dulcolax suppositories to help with bowels May need soapsuds enema Will monitor closely Working on bladder training 02/02/2023: Patient was to go home Told me his long-term care insurance is charging him $100 a day to be in inpatient rehab Bladder training initiated Incontinence is a concern from his Updated son 02/01/2023: Much improved Walking well No falls No pain Lungs are clear Weaned O2 now 01/31/2023: Patient doing a lot better Weaning down oxygen Lungs are clear Bowels have not moved and maintaining the bowel regimen when he allows 01/30/2023: Doing well No pain Lungs are clear Weaning O2 to 1L/min at bedside Needs to take BM regimen after he refuses it 01/29/2023: Patient dramatically improved Moving around much better No BM but taking bowel regimen No falls Lungs are clear 01/28/2023: Patient dramatically improved Slow recovery still remains No falls No pain Weaning oxygen Son at bedside 01/27/2023: Patient doing much better Appears to have good spirits today at bedside Bowels evacuated We will maintain bowel regimen No dysphagia currently Lungs are clear Oxygen maintain and weaning down 01/26/2023: Rested well last night Slow walking with therapy and 2 assists but it was strong and dramatic improvement Dysphagia improved CXR residual infiltrates Labs reviewed Potassium 3.4 so will initiate supplement BP stable O2 requirements are 4.0L Bowel regimen will be continued until BM Review of Systems General: Fatigue, Malaise Genitourinary: Incontinence Objective Exam Vital Signs Vital Signs Date Time Temp Pulse Resp B/P (MAP) Pulse Ox O2 Delivery O2 Flow Rate FiO2 02/05/23 09:38 Room Air 02/05/23 08:43 36.4 77 96 21 02/05/23 08:39 0.00 02/05/23 08:32 19 122/68 (86) Capillary Refill : General Appearance: No Apparent Distress, WD/WN, Chronically ill HEENT: PERRL/EOMI, Normal ENT Inspection, Pharynx Normal Neck: Full Range of Motion, Normal Inspection, Non Tender, Supple, Carotid Bruit Respiratory: Chest Non Tender, Lungs Clear, Normal Breath Sounds, No Accessory Muscle Use, No Respiratory Distress, Decreased Breath Sounds Cardiovascular: Regular Rate, Rhythm, No Edema, No Gallop, No JVD, No Murmur, Normal Peripheral Pulses Gastrointestinal: Normal Bowel Sounds, No Organomegaly, No Pulsatile Mass, Non Tender, Soft Back: Normal Inspection, No CVA Tenderness, No Vertebral Tenderness Extremity: Normal Capillary Refill, Normal Inspection, Normal Range of Motion, Non Tender, No Calf Tenderness, No Pedal Edema Neurologic/Psychiatric: Alert, Oriented x3, ab initio etl developer II-XII Norm as Tested, Abnormal Gait, Depressed Affect, Motor Weakness (generalized) Skin: Normal Color, Warm/Dry Lymphatic: No Adenopathy Results/Procedures Lab Patient resulted labs reviewed. FIM Transfers Therapy Code Descriptions/Definitions Functional [place] Measure: 0=Not Assessed/NA 4=Minimal Assistance 1=Total Assistance 5=Supervision or Setup 2=Maximal Assistance 6=Modified [place] 3=Moderate Assistance 7=Complete IndependenceSCALE: Activities may be completed with or without assistive devices. 9-Rrxhgivdpm-gegmlqk completes the activity by him/herself with no assistance from a helper. 5-Set-up or Clean-up Assistance-helper sets up or cleans up; patient completes activity. [place] assists only prior to or following the activity. 4-Supervision or Touching Assistance-helper provides verbal cues and/or touching/steadying and/or contact guard assistance as patient completes activity. Assistance may be provided throughout the activity or intermittently. 3-Partial/Moderate Assistance-helper does LESS THAN HALF the effort. [place] lifts, holds or supports trunk or limbs, but provides less than half the effort. 2-Substantial/Maximal Assistance-helper does MORE THAN HALF the effort. [place] lifts or holds trunk or limbs and provides more than half the effort. 7-Isgscsbcj-yyiwsz does ALL the effort. Patient does none of the effort to complete the activity. Or, the assistance of 2 or more helpers is required for the patient to complete the activity. If activity was not attempted, code reason: 7-Patient Refused. 9-Not Applicable-not attempted and the patient did not perform the activity before the current illness, exacerbation or injury. 10-Not Attempted due to Environmental Limitations-(lack of equipment, weather restraints, etc.). 88-Not Attempted due to Medical Conditions or Safety Concerns. Roll Left to Right (QC): 6 Sit to Lying (QC): 6 Sit to Stand (QC): 6 Chair/Qhk-ik-Ajoyv Xfer(QC): 5 Car Transfer (QC): 5 Gait Training Does the Patient Walk?: Yes Distance: 600, 200 feet Walk 10 feet (QC): 5 Walk 50 ft with 2 Turns(QC): 5 Walk 150 ft (QC): 5 Walking 10ft/uneven surface-QC: 5 Gait Persons Needed: 1 Gait Assistive Device: FWW Wheelchair Training Does the Pt Use a Wheelchair?: No Distance: 135' Wheel 50 ft with 2 turns (QC): 9 Wheel 150 ft (QC): 9 Type of Wheelchair: Manual Stair Training Stair Training: Handrails/: 2 handrails #of Steps: 4 1 Step (curb) (QC): 5 4 Steps (QC): 5 12 Steps (QC): 9 Stairs: Pattern: Step to Balance Picking up an Object (QC): 5 ADL-Treatment Eating (QC): 5 Oral Hygiene (QC): 4 (standing at sink ) Bathing Location: L Arm, R Arm, L Upper Leg, R Upper Leg, L Lower Leg (including foot), R Lower Leg (including foot), Chest, Abdomen, Buttocks, Perineal Area Shower/Bathe Self (QC): 3 (Pt. able to bathe all areas while sitting 95% of the time on shower bench using LH sponge, HH shower, and grabbars with min A. ) Upper Body Dressing (QC): 3 (Mod A with UB clothing with threading over head and pulling down trunk.) Lower Body Dressing (QC): 3 (to thread legs, pulled up pants independently ) On/Off Footwear (QC): 3 (to don/doff socks) Toileting Hygiene (QC): 4 Toilet Transfer (QC): 4 Assessment/Plan Assessment and Plan Assess & Plan/Chief Complaint Assessment: Severe debility following aspiration PNA and respiratory arrest s/p intubation Severe progressive Parkinsonism Dyphagia Severe constipation acute on chronic BPH GERD Hypokalemia Severe constipation acute on chronic Urinary incontinence Plan: Home meds PT OT ST BM regimen 01/28/2023: 01/26/2023: Nebs O2 Replace potassium BM regimen 01/27/2023: Patient dramatically improved Maintain bowel regimen since bowels have evacuated Increase stamina 01/28/2023: Patient dramatically improved Continue aggressive rehab 01/29/2023: Aggressive speech therapy for prevention of aspiration Dramatic improvement 01/30/2023: Focus on regaining strength Wean O2 01/31/2023: Wean oxygen off Bowel regimen 02/01/2023: Weaned O2 off Improved 02/02/2023: Bladder schedule Suppository if needed 02/03/2023: Suppository May need soapsuds enema Continue ambulation 02/04/2023: Monitor closely Fall risk Incontinence management 02/05/2023: Supportive care Monitor closely Lactulose twice daily (1) HAIM Mitchell DO Feb 05, 2023 06:56
[2023-02-05 08:32] VITALS: BP 122/68
[2023-02-05] MEDS: SENNA W/DOCUSATE TABLET PO SCH ×2 (08:34→20:00)
[2023-02-05] MEDS: DOCUSATE SODIUM 100 MG CAPSULE PO SCH ×2 (08:34→20:00)
[2023-02-05] MEDS: ASPIRIN 81 MG CHEWABLE TABLET PO SCH (08:35)
[2023-02-05] MEDS: LACTULOSE SYRUP 10GM/15ML 30ML UDC PO PRN (08:35)
[2023-02-05] MEDS: ENOXAPARIN 40 MG/0.4 ML SYRINGE SC SCH (08:35)
[2023-02-05 08:43] VITALS: BP 122/68
--- NOTE | 2023-02-05 09:58 | Physical Therapy Daily Note ---
PT Daily Note-Current Subjective Pt found seated in recliner upon entry /c family present. Agreed to PT. No pain reported throughout treatment. Pain Section J - Health Conditions 1. Rarely or not at all 2. Occasionally 3. Frequently 4. Almost constantly 8. Unable to answer Pain Effect on Sleep: 1 Pain Interference with Therapy: 1 Pain Interference w/Day-to-Day: 1 Mental Status Patient Orientation: Person, Place Transfers SCALE: Activities may be completed with or without assistive devices. 1-Rlipvgzfig-kfezeda completes the activity by him/herself with no assistance from a helper. 5-Set-up or Clean-up Assistance-helper sets up or cleans up; patient completes activity. [place] assists only prior to or following the activity. 4-Supervision or Touching Assistance-helper provides verbal cues and/or touching/steadying and/or contact guard assistance as patient completes activity. Assistance may be provided throughout the activity or intermittently. 3-Partial/Moderate Assistance-helper does LESS THAN HALF the effort. [place] lifts, holds or supports trunk or limbs, but provides less than half the effort. 2-Substantial/Maximal Assistance-helper does MORE THAN HALF the effort. [place] lifts or holds trunk or limbs and provides more than half the effort. 1-Uthbgvsmb-knzqvm does ALL the effort. Patient does none of the effort to complete the activity. Or, the assistance of 2 or more helpers is required for the patient to complete the activity. If activity was not attempted, code reason: 7-Patient Refused. 9-Not Applicable-not attempted and the patient did not perform the activity before the current illness, exacerbation or injury. 10-Not Attempted due to Environmental Limitations-(lack of equipment, weather restraints, etc.). 88-Not Attempted due to Medical Conditions or Safety Concerns. Sit to Stand (QC): 6 Toilet Transfer (QC): 4 Weight Bearing Full Weight Bearing Full Weight Bearing Gait Training Does the Patient Walk?: Yes Distance: 400, 100, 200 Walk 10 feet (QC): 5 Walk 50 ft with 2 Turns(QC): 5 Walk 150 ft (QC): 5 Gait Persons Needed: 1 Gait Assistive Device: FWW Exercises NuStep Minutes: 6 NuStep Workload: 7 Treatments Standing Therapeutic Exercises (B) x 20ea: - Mini squats - Side-stepping in // - Forward/retro ambulation in // - Heel/toe raises - Step ups on 4 inch step - Step taps on 4 inch step - Hip flx/ext Balance Activities: - NBOS x 30s - Tandem x 15s ea - WBOS on airex x 30s - NBOS on airex x 30s Assessment Current Status: Excellent Progress Pt performs sit to stand transfer independently /c use of B armrests. Toilet transfer performed /c CGA only for safety due to strength deficits. He ambulates /c set up assistance only for correct placement of FWW. Pt ambulates up to 400 /c limited signs of fatigue displayed. Demonstrates only minor losses of balance throughout balance training. Tolerated all therapeutic exercises well and demonstrates overall good muscle strength. Occasional short seated rest breaks required to complete. Pt left in recliner post-treatment /c call light in place and all needs met. Continue to progress pt per POC. PT Tipping Machine Operator Goals Tipping Machine Operator Goals PT [facility] Goals Time Frame: Feb 15, 2023 Roll Left & Right (QC): 4 Sit to Lying (QC): 4 Lying-Sitting on Side/Bed(QC): 4 Sit to Stand (QC): 4 Chair/Mlb-vt-Dyllk Xfer(QC): 3 Toilet Transfer (QC): 3 Car Transfer (QC): 3 Does the Patient Walk: Yes Walk 10 feet (QC): 3 Walk 50ft with 2 Turns (QC): 3 Walk 150 ft (QC): 3 Walking 10ft on Uneven Surface: 3 1 Step (curb) (QC): 3 4 Steps (QC): 9 12 Steps (QC): 9 Picking up an Object (QC): 3 Does the Pt use WC or Scooter?: Yes Wheel 50 feet with 2 turns (QC: 6 Type: Manual Wheel 150 feet: 6 Type: Manual PT Plan Treatment/Plan Treatment Plan: Continue Plan of Care Treatment Plan: Bed Mobility, Concurrent Therapy, Education, Functional Activity [place], Functional Strength, Group Therapy, Gait, Safety, Therapeutic Exercise, Transfers Treatment Duration: Feb 15, 2023 Frequency: At least 5 of 7 days/Wk (IRF) Estimated Hrs Per Day: Other (75' per Day M-F) Patient and/or Family Agrees t: Yes Time Time In: 0900 Time Out: 1000 DATE: Feb 05, 2023 Total Billed Treatment Time: 60 Total Billed Treatment 1 visit GT x 2 EX x 1 FA x 1 PABLITO ROBERTS SUPPORT WORKER Feb 05, 2023 09:58
[2023-02-05] MEDS: LACTULOSE SYRUP 10GM/15ML 30ML UDC PO SCH ×2 (12:52→20:08)
--- NOTE | 2023-02-05 13:04 | Speech Therapy Daily Note ---
Speech Daily Progress Note Subjective Date Seen by Provider: Feb 05, 2023 Time Seen by Provider: 11:45 Pt sitting in bedside chair waiting for lunch tray. Pt's was present. Objective Pt requires visual cues and verbal cues for continued use of safe swallow guidelines, especially to take small bits and sips. Discussed MBS study results with pt and , they both agreed that they understood the results. During lunch, pt demonstrates no s/s of dysphagia during PO intake. Assessment Assessment Current Status: Good Progress Treatment Plan Continue Plan of Care Speech [facility] Goals Marine Steam Fitter Goals Pt will demonstrate diet upgrade trials without s/s of aspiration during PO intake with 5/5 trials. Pt will demonstrate adequate use of safe swallow strategies to eliminate s/s of laryngeal penetration and/or aspiration of safest, least restrictive diet with cues during 80% of therapeutic trials. Speech-Plan Treatment Plan Speech Therapy Treatment Plan: Continue Plan of Care Treatment Duration: Jan 25, 2023 Frequency: At least 5 of 7 days/Wk (IRF) Estimated Hrs Per Day: .5 hour per day Rehab Potential: Good Time Speech Therapy Time In: 11:45 Speech Therapy Time Out: 12:15 DATE: Feb 05, 2023 Total Billed Time: 30 Billed Treatment Time 1 DYST 30 min Evelyn Galeas Feb 05, 2023 13:04
--- NOTE | 2023-02-05 14:00 | Physical Therapy Daily Note ---
PT Daily Note-Current Subjective Pt found seated in recliner upon entry. Agreed to PT. Reports that he is tired this PM but does not report any pain. Pain Section J - Health Conditions 1. Rarely or not at all 2. Occasionally 3. Frequently 4. Almost constantly 8. Unable to answer Pain Effect on Sleep: 1 Pain Interference with Therapy: 1 Pain Interference w/Day-to-Day: 1 Mental Status Patient Orientation: Person, Place Transfers SCALE: Activities may be completed with or without assistive devices. 2-Aizfprwtrj-bxdmwgr completes the activity by him/herself with no assistance from a helper. 5-Set-up or Clean-up Assistance-helper sets up or cleans up; patient completes activity. [place] assists only prior to or following the activity. 4-Supervision or Touching Assistance-helper provides verbal cues and/or touching/steadying and/or contact guard assistance as patient completes activity. Assistance may be provided throughout the activity or intermittently. 3-Partial/Moderate Assistance-helper does LESS THAN HALF the effort. [place] lifts, holds or supports trunk or limbs, but provides less than half the effort. 2-Substantial/Maximal Assistance-helper does MORE THAN HALF the effort. [place] lifts or holds trunk or limbs and provides more than half the effort. 3-Fbsxlpzpz-atihjn does ALL the effort. Patient does none of the effort to complete the activity. Or, the assistance of 2 or more helpers is required for the patient to complete the activity. If activity was not attempted, code reason: 7-Patient Refused. 9-Not Applicable-not attempted and the patient did not perform the activity before the current illness, exacerbation or injury. 10-Not Attempted due to Environmental Limitations-(lack of equipment, weather restraints, etc.). 88-Not Attempted due to Medical Conditions or Safety Concerns. Sit to Stand (QC): 6 Weight Bearing Full Weight Bearing Full Weight Bearing Gait Training Does the Patient Walk?: Yes Distance: 250, 100 Walk 10 feet (QC): 5 Walk 50 ft with 2 Turns(QC): 5 Walk 150 ft (QC): 5 Gait Persons Needed: 1 Gait Assistive Device: FWW Exercises NuStep Minutes: 15 NuStep Workload: 7 Assessment Current Status: Excellent Progress Pt performs sit to stand transfer from recliner independently /c use of B armrests. Pt failed first attempt likely due to fatigue but completes after second attempt. He ambulates /c use of a FWW up to 250 feet /c set up assistance only for correct placement of FWW. No loss of balance displayed during ambulation. Demonstrates good step lengths and gait speed. Pt displays signs of increased fatigue during treatment but does demonstrate good overall tolerance to interventions. Pt left seated in recliner post-treatment /c call light in place, family present, and all needs met. Continue to progress pt per POC. 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 Molding Operator Goals Halfway Goals PT Halfway Goals Time Frame: Feb 15, 2023 Roll Left & Right (QC): 4 Sit to Lying (QC): 4 Lying-Sitting on Side/Bed(QC): 4 Sit to Stand (QC): 4 Chair/Pee-ur-Spvnm Xfer(QC): 3 Toilet Transfer (QC): 3 Car Transfer (QC): 3 Does the Patient Walk: Yes Walk 10 feet (QC): 3 Walk 50ft with 2 Turns (QC): 3 Walk 150 ft (QC): 3 Walking 10ft on Uneven Surface: 3 1 Step (curb) (QC): 3 4 Steps (QC): 9 12 Steps (QC): 9 Picking up an Object (QC): 3 Does the Pt use WC or Scooter?: Yes Wheel 50 feet with 2 turns (QC: 6 Type: Manual Wheel 150 feet: 6 Type: Manual PT Plan Treatment/Plan Treatment Plan: Continue Plan of Care Treatment Plan: Bed Mobility, Concurrent Therapy, Education, Functional Activity [place], Functional Strength, Group Therapy, Gait, Safety, Therapeutic Exercise, Transfers Treatment Duration: Feb 15, 2023 Frequency: At least 5 of 7 days/Wk (IRF) Estimated Hrs Per Day: Other (75' per Day M-F) Patient and/or Family Agrees t: Yes Time Time In: 1330 Time Out: 1400 DATE: Feb 05, 2023 Total Billed Treatment Time: 30 Total Billed Treatment 1 visit GT x 1 EX x 1 PABLITO ROBERTS [employer]ACKING Feb 05, 2023 13:59
--- NOTE | 2023-02-05 14:42 | Occupational Ther Daily Note ---
OT Current Status-Daily Note Subjective Pt received sitting in recliner with spouse at bedside. Pt very pleasant and willing to participate in therapy. Pain Numeric Pain Scale: 0-No Pain Location: No Pain Reported Mental Status/Objective Patient Orientation: Person, Place, Time, Situation ADL-Treatment Therapy Code Descriptions/Definitions Functional [place] Measure: 0=Not Assessed/NA 4=Minimal Assistance 1=Total Assistance 5=Supervision or Setup 2=Maximal Assistance 6=Modified [place] 3=Moderate Assistance 7=Complete IndependenceSCALE: Activities may be completed with or without assistive devices. 6-Glyvlqjdei-fglmtsd completes the activity by him/herself with no assistance from a helper. 5-Set-up or Clean-up Assistance-helper sets up or cleans up; patient completes activity. [place] assists only prior to or following the activity. 4-Supervision or Touching Assistance-helper provides verbal cues and/or touching/steadying and/or contact guard assistance as patient completes activity. Assistance may be provided throughout the activity or intermittently. 3-Partial/Moderate Assistance-helper does LESS THAN HALF the effort. [place] lifts, holds or supports trunk or limbs, but provides less than half the effort. 2-Substantial/Maximal Assistance-helper does MORE THAN HALF the effort. [place] lifts or holds trunk or limbs and provides more than half the effort. 2-Mcvmmjjns-ibqqau does ALL the effort. Patient does none of the effort to complete the activity. Or, the assistance of 2 or more helpers is required for the patient to complete the activity. If activity was not attempted, code reason: 7-Patient Refused. 9-Not Applicable-not attempted and the patient did not perform the activity before the current illness, exacerbation or injury. 10-Not Attempted due to Environmental Limitations-(lack of equipment, weather restraints, etc.). 88-Not Attempted due to Medical Conditions or Safety Concerns. Eating (QC): 5 Other Treatment Pt completed functional dynamic standing activity this session to improve overall functional endurance, balance and strength. Pt completed standing activities for 10minutes, 7 minutes and 8 minutes x2 with use of FWW and supervision for balance. Pt demonstrated reaching outside YEN and weight shifting with supervision and no loss of balance. Pt completed functional mobility of 30ft and 200ft with use of FWW and supervision for balance, requiring no cues for safety. Education OT Patient Education: Correct positioning, Energy conservation, Modified ADL techniques, Progress toward Goal/Update tx plan, Purpose of tx/functional activi ties, Rehab process, Safety issues, Transfer techniques Teaching Recipient: Patient Teaching Methods: Demonstration, Discussion Response to Teaching: Verbalize Understanding, Return Demonstration OT Short Term Goals Short Term Goals Time Frame: Feb 05, 2023 Toileting hygiene: 3 Lower body dressin Putting on/taking off footwear: 3 OT Continuity Person Goals Senior Living Goals Time Frame: Feb 26, 2023 Acute change in mental status: 1 Inattention: 0 Disorganized thinkin Altered level of consciousness: 0 Eating (QC): 6 Oral Hygiene (QC): 6 Toileting Hygiene (QC): 6 Shower/Bathe Self (QC): 6 Upper Body Dressing (QC): 6 Lower Body Dressing (QC): 6 On/Off Footwear (QC): 6 Additional Goals: 1-Demonstrate ADL Tasks, 2-Verbalize Understanding, 3- ImproveStrength/Destinee 1=Demonstrate adherence to instructed precautions during ADL tasks. 2=Patient will verbalize/demonstrate understanding of assistive devices/modifications for ADL. 3=Patient will improve strength/tolerance for activity to enable patient to perform ADL's. OT Education/Plan Problem List/Assessment Assessment: Decreased Activ Tolerance, Decreased Safety Aware, Decreased UE Strength, Impaired Bed Mobility, Impaired Coordination, Impaired Funct Balance, Impaired I ADL's, Impaired Self-Care Skills Discharge Recommendations Plan/Recommendations: Continue POC Treatment Plan/Plan of Care Treatment,Training & Education: Yes Patient would benefit from OT for education, treatment and training to promote independence in ADL's, mobility, safety and/or upper extremity function for ADL's. Plan of Care: ADL Retraining, Functional Mobility, Group Exercise/Act as Ind, UE Funct Exercise/Act Treatment Duration: Feb 26, 2023 Frequency: At least 5 of 7 days/Wk (IRF) Estimated Hrs Per Day: Other (75 mins per day) Agreement: Yes Rehab Potential: Good Time Start Time: 10:05 Stop Time: 11:05 DATE: Feb 05, 2023 Total Time Billed (hr/min): 60 Billed Treatment Time 1, FA 4 Nahomy Silvestre OTR/Enzo Feb 05, 2023 14:42
[2023-02-05] MEDS: Sulfamethoxazole/Trimethoprim DS TABLET PO SCH (16:06)
[2023-02-05] MEDS: traZODone 50 MG (DESYREL) TAB PO SCH (20:00)
[2023-02-05 20:43] VITALS: BP 120/60
[2023-02-06] MEDS: CARBIDOPA/LEVODOPA 25/100 TABLET PO SCH ×3 (06:12→17:02)
[2023-02-06] MEDS: TROSPIUM 20 MG (SANCTURA) TAB PO SCH ×2 (06:12→17:02)
[2023-02-06] MEDS: POTASSIUM BICARB 20 MEQ effervescent TABLET PO SCH (06:12)
[2023-02-06] MEDS: THERAPEUTIC MULTIVITAMIN W/MINERALS TABLET PO SCH (06:12)
[2023-02-06] MEDS: ACETAMINOPHEN 325 MG TABLET PO PRN ×3 (06:13→19:34)
--- NOTE | 2023-02-06 06:34 | PM&R Progress Note ---
Subjective HPI/CC On Admission Date Seen by Provider: Feb 06, 2023 Time Seen by Provider: 12:30 Subjective/Events-last exam 02/06/2023: Patient doing well Bowels are moving since lactulose scheduled twice daily Participation is good with therapy Discharge is planned on Wednesday02/05/2023: Patient doing better Bowel regimen will include lactulose twice daily scheduled Reviewed meds and labs Feels good at bedside 02/04/2023: Much improved No falls No pain Weaned off O2 02/03/2023: Patient doing a lot better Giving 2 Dulcolax suppositories to help with bowels May need soapsuds enema Will monitor closely Working on bladder training 02/02/2023: Patient was to go home Told me his long-term care insurance is charging him $100 a day to be in inpatient rehab Bladder training initiated Incontinence is a concern from his Updated son 02/01/2023: Much improved Walking well No falls No pain Lungs are clear Weaned O2 now 01/31/2023: Patient doing a lot better Weaning down oxygen Lungs are clear Bowels have not moved and maintaining the bowel regimen when he allows 01/30/2023: Doing well No pain Lungs are clear Weaning O2 to 1L/min at bedside Needs to take BM regimen after he refuses it 01/29/2023: Patient dramatically improved Moving around much better No BM but taking bowel regimen No falls Lungs are clear 01/28/2023: Patient dramatically improved Slow recovery still remains No falls No pain Weaning oxygen Son at bedside 01/27/2023: Patient doing much better Appears to have good spirits today at bedside Bowels evacuated We will maintain bowel regimen No dysphagia currently Lungs are clear Oxygen maintain and weaning down 01/26/2023: Rested well last night Slow walking with therapy and 2 assists but it was strong and dramatic improvement Dysphagia improved CXR residual infiltrates Labs reviewed Potassium 3.4 so will initiate supplement BP stable O2 requirements are 4.0L Bowel regimen will be continued until BM Review of Systems General: Fatigue, Malaise Objective Exam Vital Signs Vital Signs Date Time Temp Pulse Resp B/P (MAP) Pulse Ox O2 Delivery O2 Flow Rate FiO2 02/06/23 20:00 Room Air 02/06/23 19:53 36.5 76 18 126/60 (82) 95 02/05/23 21:37 0.00 02/05/23 08:43 21 Capillary Refill : General Appearance: No Apparent Distress, WD/WN, Chronically ill HEENT: PERRL/EOMI, Normal ENT Inspection, Pharynx Normal Neck: Full Range of Motion, Normal Inspection, Non Tender, Supple, Carotid Bruit Respiratory: Chest Non Tender, Lungs Clear, Normal Breath Sounds, No Accessory Muscle Use, No Respiratory Distress, Decreased Breath Sounds Cardiovascular: Regular Rate, Rhythm, No Edema, No Gallop, No JVD, No Murmur, Normal Peripheral Pulses Gastrointestinal: Normal Bowel Sounds, No Organomegaly, No Pulsatile Mass, Non Tender, Soft Back: Normal Inspection, No CVA Tenderness, No Vertebral Tenderness Extremity: Normal Capillary Refill, Normal Inspection, Normal Range of Motion, Non Tender, No Calf Tenderness, No Pedal Edema Neurologic/Psychiatric: Alert, Oriented x3, track and field coach II-XII Norm as Tested, Abnormal Gait, Depressed Affect, Motor Weakness (generalized) Skin: Normal Color, Warm/Dry Lymphatic: No Adenopathy Results/Procedures Lab Patient resulted labs reviewed. FIM Transfers Therapy Code Descriptions/Definitions Functional [place] Measure: 0=Not Assessed/NA 4=Minimal Assistance 1=Total Assistance 5=Supervision or Setup 2=Maximal Assistance 6=Modified [place] 3=Moderate Assistance 7=Complete IndependenceSCALE: Activities may be completed with or without assistive devices. 3-Dedlugdevr-qfmmjbf completes the activity by him/herself with no assistance from a helper. 5-Set-up or Clean-up Assistance-helper sets up or cleans up; patient completes activity. [place] assists only prior to or following the activity. 4-Supervision or Touching Assistance-helper provides verbal cues and/or touching/steadying and/or contact guard assistance as patient completes activity. Assistance may be provided throughout the activity or intermittently. 3-Partial/Moderate Assistance-helper does LESS THAN HALF the effort. [place] lifts, holds or supports trunk or limbs, but provides less than half the effort. 2-Substantial/Maximal Assistance-helper does MORE THAN HALF the effort. [place] lifts or holds trunk or limbs and provides more than half the effort. 0-Exmkhkatz-palpxu does ALL the effort. Patient does none of the effort to complete the activity. Or, the assistance of 2 or more helpers is required for the patient to complete the activity. If activity was not attempted, code reason: 7-Patient Refused. 9-Not Applicable-not attempted and the patient did not perform the activity before the current illness, exacerbation or injury. 10-Not Attempted due to Environmental Limitations-(lack of equipment, weather restraints, etc.). 88-Not Attempted due to Medical Conditions or Safety Concerns. Roll Left to Right (QC): 6 Sit to Lying (QC): 6 Sit to Stand (QC): 6 Chair/Vuw-xu-Vzivq Xfer(QC): 5 Car Transfer (QC): 5 Gait Training Does the Patient Walk?: Yes Distance: 250, 100 Walk 10 feet (QC): 5 Walk 50 ft with 2 Turns(QC): 5 Walk 150 ft (QC): 5 Walking 10ft/uneven surface-QC: 5 Gait Persons Needed: 1 Gait Assistive Device: FWW Wheelchair Training Does the Pt Use a Wheelchair?: No Distance: 135' Wheel 50 ft with 2 turns (QC): 9 Wheel 150 ft (QC): 9 Type of Wheelchair: Manual Stair Training Stair Training: Handrails/: 2 handrails #of Steps: 4 1 Step (curb) (QC): 5 4 Steps (QC): 5 12 Steps (QC): 9 Stairs: Pattern: Step to Balance Picking up an Object (QC): 5 ADL-Treatment Eating (QC): 5 Oral Hygiene (QC): 4 (standing at sink ) Bathing Location: L Arm, R Arm, L Upper Leg, R Upper Leg, L Lower Leg (including foot), R Lower Leg (including foot), Chest, Abdomen, Buttocks, Perineal Area Shower/Bathe Self (QC): 3 (Pt. able to bathe all areas while sitting 95% of the time on shower bench using LH sponge, HH shower, and grabbars with min A. ) Upper Body Dressing (QC): 3 (Mod A with UB clothing with threading over head and pulling down trunk.) Lower Body Dressing (QC): 3 (to thread legs, pulled up pants independently ) On/Off Footwear (QC): 3 (to don/doff socks) Toileting Hygiene (QC): 4 Toilet Transfer (QC): 4 Assessment/Plan Assessment and Plan Assess & Plan/Chief Complaint Assessment: Severe debility following aspiration PNA and respiratory arrest s/p intubation Severe progressive Parkinsonism Dyphagia Severe constipation acute on chronic BPH GERD Hypokalemia Severe constipation acute on chronic Urinary incontinence Plan: Home meds PT OT ST BM regimen 01/28/2023: 01/26/2023: Nebs O2 Replace potassium BM regimen 01/27/2023: Patient dramatically improved Maintain bowel regimen since bowels have evacuated Increase stamina 01/28/2023: Patient dramatically improved Continue aggressive rehab 01/29/2023: Aggressive speech therapy for prevention of aspiration Dramatic improvement 01/30/2023: Focus on regaining strength Wean O2 01/31/2023: Wean oxygen off Bowel regimen 02/01/2023: Weaned O2 off Improved 02/02/2023: Bladder schedule Suppository if needed 02/03/2023: Suppository May need soapsuds enema Continue ambulation 02/04/2023: Monitor closely Fall risk Incontinence management 02/05/2023: Supportive care Monitor closely Lactulose twice daily 02/06/2023: Maintain lactulose twice daily long-term Supportive care (1) HAIM Mitchell DO Feb 06, 2023 06:34
[2023-02-06 07:30] VITALS: BP 120/58
[2023-02-06] MEDS: DOCUSATE SODIUM 100 MG CAPSULE PO SCH ×2 (08:27→19:34)
[2023-02-06] MEDS: ENOXAPARIN 40 MG/0.4 ML SYRINGE SC SCH (08:27)
[2023-02-06] MEDS: ASPIRIN 81 MG CHEWABLE TABLET PO SCH (08:27)
[2023-02-06] MEDS: SENNA W/DOCUSATE TABLET PO SCH ×2 (08:27→19:34)
[2023-02-06] MEDS: LACTULOSE SYRUP 10GM/15ML 30ML UDC PO SCH ×2 (08:28→19:31)
[2023-02-06] MEDS: Sulfamethoxazole/Trimethoprim DS TABLET PO SCH (17:01)
[2023-02-06] MEDS: traZODone 50 MG (DESYREL) TAB PO SCH (19:34)
[2023-02-06 19:53] VITALS: BP 126/60
[2023-02-07] MEDS: ACETAMINOPHEN 325 MG TABLET PO PRN ×3 (02:48→19:44)
[2023-02-07] MEDS: CARBIDOPA/LEVODOPA 25/100 TABLET PO SCH ×4 (06:06→18:36)
[2023-02-07] MEDS: TROSPIUM 20 MG (SANCTURA) TAB PO SCH ×2 (06:06→16:25)
[2023-02-07] MEDS: THERAPEUTIC MULTIVITAMIN W/MINERALS TABLET PO SCH (06:06)
[2023-02-07] MEDS: POTASSIUM BICARB 20 MEQ effervescent TABLET PO SCH (06:06)
--- NOTE | 2023-02-07 06:45 | PM&R Progress Note ---
Subjective HPI/CC On Admission Date Seen by Provider: Feb 07, 2023 Time Seen by Provider: 12:30 Subjective/Events-last exam 02/07/2023: Patient doing much better Will change lactulose to once a day instead of twice a day since it appears to be too much for him Urination seems to be straightened out Voltaren gel will be initiated on his back 02/06/2023: Patient doing well Bowels are moving since lactulose scheduled twice daily Participation is good with therapy Discharge is planned on Wednesday02/05/2023: Patient doing better Bowel regimen will include lactulose twice daily scheduled Reviewed meds and labs Feels good at bedside 02/04/2023: Much improved No falls No pain Weaned off O2 02/03/2023: Patient doing a lot better Giving 2 Dulcolax suppositories to help with bowels May need soapsuds enema Will monitor closely Working on bladder training 02/02/2023: Patient was to go home Told me his long-term care insurance is charging him $100 a day to be in inpatient rehab Bladder training initiated Incontinence is a concern from his Updated son 02/01/2023: Much improved Walking well No falls No pain Lungs are clear Weaned O2 now 01/31/2023: Patient doing a lot better Weaning down oxygen Lungs are clear Bowels have not moved and maintaining the bowel regimen when he allows 01/30/2023: Doing well No pain Lungs are clear Weaning O2 to 1L/min at bedside Needs to take BM regimen after he refuses it 01/29/2023: Patient dramatically improved Moving around much better No BM but taking bowel regimen No falls Lungs are clear 01/28/2023: Patient dramatically improved Slow recovery still remains No falls No pain Weaning oxygen Son at bedside 01/27/2023: Patient doing much better Appears to have good spirits today at bedside Bowels evacuated We will maintain bowel regimen No dysphagia currently Lungs are clear Oxygen maintain and weaning down 01/26/2023: Rested well last night Slow walking with therapy and 2 assists but it was strong and dramatic improvement Dysphagia improved CXR residual infiltrates Labs reviewed Potassium 3.4 so will initiate supplement BP stable O2 requirements are 4.0L Bowel regimen will be continued until BM Review of Systems General: Fatigue, Malaise Objective Exam Vital Signs Vital Signs Date Time Temp Pulse Resp B/P (MAP) Pulse Ox O2 Delivery O2 Flow Rate FiO2 02/07/23 09:10 Room Air 02/07/23 08:00 36.5 78 22 121/58 (79) 93 02/05/23 21:37 0.00 02/05/23 08:43 21 Capillary Refill : General Appearance: No Apparent Distress, WD/WN, Chronically ill HEENT: PERRL/EOMI, Normal ENT Inspection, Pharynx Normal Neck: Full Range of Motion, Normal Inspection, Non Tender, Supple, Carotid Bruit Respiratory: Chest Non Tender, Lungs Clear, Normal Breath Sounds, No Accessory Muscle Use, No Respiratory Distress, Decreased Breath Sounds Cardiovascular: Regular Rate, Rhythm, No Edema, No Gallop, No JVD, No Murmur, Normal Peripheral Pulses Gastrointestinal: Normal Bowel Sounds, No Organomegaly, No Pulsatile Mass, Non Tender, Soft Back: Normal Inspection, No CVA Tenderness, No Vertebral Tenderness Extremity: Normal Capillary Refill, Normal Inspection, Normal Range of Motion, Non Tender, No Calf Tenderness, No Pedal Edema Neurologic/Psychiatric: Alert, Oriented x3, revenue integrity analyst II-XII Norm as Tested, Abnormal Gait, Depressed Affect, Motor Weakness (generalized) Skin: Normal Color, Warm/Dry Lymphatic: No Adenopathy Results/Procedures Lab Patient resulted labs reviewed. FIM Transfers Therapy Code Descriptions/Definitions Functional [place] Measure: 0=Not Assessed/NA 4=Minimal Assistance 1=Total Assistance 5=Supervision or Setup 2=Maximal Assistance 6=Modified [place] 3=Moderate Assistance 7=Complete IndependenceSCALE: Activities may be completed with or without assistive devices. 8-Meusotpvus-sulectt completes the activity by him/herself with no assistance from a helper. 5-Set-up or Clean-up Assistance-helper sets up or cleans up; patient completes activity. [place] assists only prior to or following the activity. 4-Supervision or Touching Assistance-helper provides verbal cues and/or touching/steadying and/or contact guard assistance as patient completes activity. Assistance may be provided throughout the activity or intermittently. 3-Partial/Moderate Assistance-helper does LESS THAN HALF the effort. [place] lifts, holds or supports trunk or limbs, but provides less than half the effort. 2-Substantial/Maximal Assistance-helper does MORE THAN HALF the effort. [place] lifts or holds trunk or limbs and provides more than half the effort. 9-Bfyaxmgfr-terhis does ALL the effort. Patient does none of the effort to complete the activity. Or, the assistance of 2 or more helpers is required for the patient to complete the activity. If activity was not attempted, code reason: 7-Patient Refused. 9-Not Applicable-not attempted and the patient did not perform the activity before the current illness, exacerbation or injury. 10-Not Attempted due to Environmental Limitations-(lack of equipment, weather restraints, etc.). 88-Not Attempted due to Medical Conditions or Safety Concerns. Roll Left to Right (QC): 6 Sit to Lying (QC): 6 Sit to Stand (QC): 6 Chair/Tqo-xm-Jtedt Xfer(QC): 5 Car Transfer (QC): 5 Gait Training Does the Patient Walk?: Yes Distance: 250, 100 Walk 10 feet (QC): 5 Walk 50 ft with 2 Turns(QC): 5 Walk 150 ft (QC): 5 Walking 10ft/uneven surface-QC: 5 Gait Persons Needed: 1 Gait Assistive Device: FWW Wheelchair Training Does the Pt Use a Wheelchair?: No Distance: 135' Wheel 50 ft with 2 turns (QC): 9 Wheel 150 ft (QC): 9 Type of Wheelchair: Manual Stair Training Stair Training: Handrails/: 2 handrails #of Steps: 4 1 Step (curb) (QC): 5 4 Steps (QC): 5 12 Steps (QC): 9 Stairs: Pattern: Step to Balance Picking up an Object (QC): 5 ADL-Treatment Eating (QC): 5 Oral Hygiene (QC): 4 (standing at sink ) Bathing Location: L Arm, R Arm, L Upper Leg, R Upper Leg, L Lower Leg (including foot), R Lower Leg (including foot), Chest, Abdomen, Buttocks, Perine al Area Shower/Bathe Self (QC): 3 (Pt. able to bathe all areas while sitting 95% of the time on shower bench using LH sponge, HH shower, and grabbars with min A. ) Upper Body Dressing (QC): 3 (Mod A with UB clothing with threading over head and pulling down trunk.) Lower Body Dressing (QC): 3 (to thread legs, pulled up pants independently ) On/Off Footwear (QC): 3 (to don/doff socks) Toileting Hygiene (QC): 4 Toilet Transfer (QC): 4 Assessment/Plan Assessment and Plan Assess & Plan/Chief Complaint Assessment: Severe debility following aspiration PNA and respiratory arrest s/p intubation Severe progressive Parkinsonism Dyphagia Severe constipation acute on chronic BPH GERD Hypokalemia Severe constipation acute on chronic Improved on lactulose changing from twice daily to daily Urinary incontinence Plan: Home meds PT OT ST BM regimen 01/28/2023: 01/26/2023: Nebs O2 Replace potassium BM regimen 01/27/2023: Patient dramatically improved Maintain bowel regimen since bowels have evacuated Increase stamina 01/28/2023: Patient dramatically improved Continue aggressive rehab 01/29/2023: Aggressive speech therapy for prevention of aspiration Dramatic improvement 01/30/2023: Focus on regaining strength Wean O2 01/31/2023: Wean oxygen off Bowel regimen 02/01/2023: Weaned O2 off Improved 02/02/2023: Bladder schedule Suppository if needed 02/03/2023: Suppository May need soapsuds enema Continue ambulation 02/04/2023: Monitor closely Fall risk Incontinence management 02/05/2023: Supportive care Monitor closely Lactulose twice daily 02/06/2023: Maintain lactulose twice daily long-term Supportive care 02/07/2023: Supportive care Change lactulose to daily instead of twice daily Voltaren gel for back pain (1) HAIM Mitchell DO Feb 07, 2023 06:45
[2023-02-07] MEDS: LACTULOSE SYRUP 10GM/15ML 30ML UDC PO SCH (07:34)
[2023-02-07] MEDS: ASPIRIN 81 MG CHEWABLE TABLET PO SCH (07:57)
[2023-02-07] MEDS: ENOXAPARIN 40 MG/0.4 ML SYRINGE SC SCH (07:57)
[2023-02-07] MEDS: DOCUSATE SODIUM 100 MG CAPSULE PO SCH ×2 (07:57→19:44)
[2023-02-07] MEDS: SENNA W/DOCUSATE TABLET PO SCH ×2 (07:57→19:44)
[2023-02-07 08:00] VITALS: BP 121/58
[2023-02-07] MEDS: DICLOFENAC 1% GEL 50 GM TUBE TOP SCH ×3 (11:53→20:25)
[2023-02-07] MEDS: Sulfamethoxazole/Trimethoprim DS TABLET PO SCH (16:25)
[2023-02-07] MEDS: traZODone 50 MG (DESYREL) TAB PO SCH (19:44)
[2023-02-07 20:10] VITALS: BP 132/66
[2023-02-08] MEDS: ACETAMINOPHEN 325 MG TABLET PO PRN ×4 (02:41→21:52)
[2023-02-08] MEDS: POTASSIUM BICARB 20 MEQ effervescent TABLET PO SCH (05:54)
[2023-02-08] MEDS: CARBIDOPA/LEVODOPA 25/100 TABLET PO SCH ×3 (05:54→17:31)
[2023-02-08] MEDS: TROSPIUM 20 MG (SANCTURA) TAB PO SCH ×2 (05:54→17:31)
[2023-02-08] MEDS: THERAPEUTIC MULTIVITAMIN W/MINERALS TABLET PO SCH (05:54)
[2023-02-08 06:10] LABS: BASOPHILS % (AUTO) 1 % (0-10); EOSINOPHILS # (AUTO) 0.2 10^3/uL (0.0-0.3); EOSINOPHILS % (AUTO) 3 % (0-10); HEMATOCRIT 36 % (40-54); HEMOGLOBIN 11.4 g/dL (13.3-17.7); LYMPHOCYTES % (AUTO) 30 % (12-44); MEAN CORPUSCULAR HEMOGLOBIN 30 pg (25-34); MEAN CORPUSCULAR HGB CONC 32 g/dL (32-36); MEAN CORPUSCULAR VOLUME 94 fL (80-99); MEAN PLATELET VOLUME 9.4 fL (9.0-12.2); MONOCYTES # (AUTO) 0.4 10^3/uL (0.0-1.0); MONOCYTES % (AUTO) 6 % (0-12); NEUTROPHILS # (AUTO) 3.9 10^3/uL (1.8-7.8); NEUTROPHILS % (AUTO) 60 % (42-75); PLATELET COUNT 370 10^3/uL (130-400); WHITE BLOOD COUNT 6.6 10^3/uL (4.3-11.0)
[2023-02-08 06:29] LABS: ALBUMIN 3.1 GM/DL (3.2-4.5); BILIRUBIN,TOTAL 0.6 MG/DL (0.1-1.0); CALCIUM 8.6 MG/DL (8.5-10.1); CREATININE SERUM 0.73 MG/DL (0.60-1.30); POTASSIUM 3.8 MMOL/L (3.6-5.0); TOTAL PROTEIN 5.2 GM/DL (6.4-8.2)
--- NOTE | 2023-02-08 07:17 | PM&R Progress Note ---
Subjective HPI/CC On Admission Date Seen by Provider: Feb 08, 2023 Time Seen by Provider: 09:00 Subjective/Events-last exam 02/08/2023: Patient dramatically improved Bladder incontinence varies Pain is reportedly improved with Voltaren gel Discharge is planned for Wednesday02/07/2023: Patient doing much better Will change lactulose to once a day instead of twice a day since it appears to be too much for him Urination seems to be straightened out Voltaren gel will be initiated on his back 02/06/2023: Patient doing well Bowels are moving since lactulose scheduled twice daily Participation is good with therapy Discharge is planned on Wednesday02/05/2023: Patient doing better Bowel regimen will include lactulose twice daily scheduled Reviewed meds and labs Feels good at bedside 02/04/2023: Much improved No falls No pain Weaned off O2 02/03/2023: Patient doing a lot better Giving 2 Dulcolax suppositories to help with bowels May need soapsuds enema Will monitor closely Working on bladder training 02/02/2023: Patient was to go home Told me his long-term care insurance is charging him $100 a day to be in inpatient rehab Bladder training initiated Incontinence is a concern from his Updated son 02/01/2023: Much improved Walking well No falls No pain Lungs are clear Weaned O2 now 01/31/2023: Patient doing a lot better Weaning down oxygen Lungs are clear Bowels have not moved and maintaining the bowel regimen when he allows 01/30/2023: Doing well No pain Lungs are clear Weaning O2 to 1L/min at bedside Needs to take BM regimen after he refuses it 01/29/2023: Patient dramatically improved Moving around much better No BM but taking bowel regimen No falls Lungs are clear 01/28/2023: Patient dramatically improved Slow recovery still remains No falls No pain Weaning oxygen Son at bedside 01/27/2023: Patient doing much better Appears to have good spirits today at bedside Bowels evacuated We will maintain bowel regimen No dysphagia currently Lungs are clear Oxygen maintain and weaning down 01/26/2023: Rested well last night Slow walking with therapy and 2 assists but it was strong and dramatic improvement Dysphagia improved CXR residual infiltrates Labs reviewed Potassium 3.4 so will initiate supplement BP stable O2 requirements are 4.0L Bowel regimen will be continued until BM Review of Systems General: Fatigue, Malaise Objective Exam Vital Signs Vital Signs Date Time Temp Pulse Resp B/P (MAP) Pulse Ox O2 Delivery O2 Flow Rate FiO2 02/08/23 20:35 36.4 71 16 112/60 (77) 95 NIV CPAP 02/05/23 21:37 0.00 02/05/23 08:43 21 Capillary Refill : General Appearance: No Apparent Distress, WD/WN, Chronically ill HEENT: PERRL/EOMI, Normal ENT Inspection, Pharynx Normal Neck: Full Range of Motion, Normal Inspection, Non Tender, Supple, Carotid Bruit Respiratory: Chest Non Tender, Lungs Clear, Normal Breath Sounds, No Accessory Muscle Use, No Respiratory Distress, Decreased Breath Sounds Cardiovascular: Regular Rate, Rhythm, No Edema, No Gallop, No JVD, No Murmur, Normal Peripheral Pulses Gastrointestinal: Normal Bowel Sounds, No Organomegaly, No Pulsatile Mass, Non Tender, Soft Back: Normal Inspection, No CVA Tenderness, No Vertebral Tenderness Extremity: Normal Capillary Refill, Normal Inspection, Normal Range of Motion, Non Tender, No Calf Tenderness, No Pedal Edema Neurologic/Psychiatric: Alert, Oriented x3, centrifugal separator II-XII Norm as Tested, Abnormal Gait, Depressed Affect, Motor Weakness (generalized) Skin: Normal Color, Warm/Dry Lymphatic: No Adenopathy Results/Procedures Lab Laboratory Tests 02/08/23 05:39 Patient resulted labs reviewed. FIM Transfers Therapy Code Descriptions/Definitions Functional [place] Measure: 0=Not Assessed/NA 4=Minimal Assistance 1=Total Assistance 5=Supervision or Setup 2=Maximal Assistance 6=Modified [place] 3=Moderate Assistance 7=Complete IndependenceSCALE: Activities may be completed with or without assistive devices. 8-Pkqzqoqniv-duiynhz completes the activity by him/herself with no assistance from a helper. 5-Set-up or Clean-up Assistance-helper sets up or cleans up; patient completes activity. [place] assists only prior to or following the activity. 4-Supervision or Touching Assistance-helper provides verbal cues and/or touching/steadying and/or contact guard assistance as patient completes activity. Assistance may be provided throughout the activity or intermittently. 3-Partial/Moderate Assistance-helper does LESS THAN HALF the effort. [place] lifts, holds or supports trunk or limbs, but provides less than half the effort. 2-Substantial/Maximal Assistance-helper does MORE THAN HALF the effort. [place] lifts or holds trunk or limbs and provides more than half the effort. 6-Qjpeabopm-qdexwy does ALL the effort. Patient does none of the effort to complete the activity. Or, the assistance of 2 or more helpers is required for the patient to complete the activity. If activity was not attempted, code reason: 7-Patient Refused. 9-Not Applicable-not attempted and the patient did not perform the activity before the current illness, exacerbation or injury. 10-Not Attempted due to Environmental Limitations-(lack of equipment, weather restraints, etc.). 88-Not Attempted due to Medical Conditions or Safety Concerns. Roll Left to Right (QC): 6 Sit to Lying (QC): 6 Sit to Stand (QC): 6 Chair/Owj-ln-Fdysv Xfer(QC): 5 Car Transfer (QC): 5 Gait Training Does the Patient Walk?: Yes Distance: 250, 100 Walk 10 feet (QC): 5 Walk 50 ft with 2 Turns(QC): 5 Walk 150 ft (QC): 5 Walking 10ft/uneven surface-QC: 5 Gait Persons Needed: 1 Gait Assistive Device: FWW Wheelchair Training Does the Pt Use a Wheelchair?: No Distance: 135' Wheel 50 ft with 2 turns (QC): 9 Wheel 150 ft (QC): 9 Type of Wheelchair: Manual Stair Training Stair Training: Handrails/: 2 handrails #of Steps: 4 1 Step (curb) (QC): 5 4 Steps (QC): 5 12 Steps (QC): 9 Stairs: Pattern: Step to Balance Picking up an Object (QC): 5 ADL-Treatment Eating (QC): 5 Oral Hygiene (QC): 4 (standing at sink ) Bathing Location: L Arm, R Arm, L Upper Leg, R Upper Leg, L Lower Leg (including foot), R Lower Leg (including foot), Chest, Abdomen, Buttocks, Perineal Area Shower/Bathe Self (QC): 3 (Pt. able to bathe all areas while sitting 95% of the time on shower bench using LH sponge, HH shower, and grabbars with min A. ) Upper Body Dressing (QC): 3 (Mod A with UB clothing with threading over head and pulling down trunk.) Lower Body Dressing (QC): 3 (to thread legs, pulled up pants independently ) On/Off Footwear (QC): 3 (to don/doff socks) Toileting Hygiene (QC): 4 Toilet Transfer (QC): 4 Assessment/Plan Assessment and Plan Assess & Plan/Chief Complaint Assessment: Severe debility following aspiration PNA and respiratory arrest s/p intubation Severe progressive Parkinsonism Dyphagia Severe constipation acute on chronic BPH GERD Hypokalemia Severe constipation acute on chronic Improved on lactulose changing from twice daily to daily Urinary incontinence Plan: Home meds PT OT ST BM regimen 01/28/2023: 01/26/2023: Nebs O2 Replace potassium BM regimen 01/27/2023: Patient dramatically improved Maintain bowel regimen since bowels have evacuated Increase stamina 01/28/2023: Patient dramatically improved Continue aggressive rehab 01/29/2023: Aggressive speech therapy for prevention of aspiration Dramatic improvement 01/30/2023: Focus on regaining strength Wean O2 01/31/2023: Wean oxygen off Bowel regimen 02/01/2023: Weaned O2 off Improved 02/02/2023: Bladder schedule Suppository if needed 02/03/2023: Suppository May need soapsuds enema Continue ambulation 02/04/2023: Monitor closely Fall risk Incontinence management 02/05/2023: Supportive care Monitor closely Lactulose twice daily 02/06/2023: Maintain lactulose twice daily long-term Supportive care 02/07/2023: Supportive care Change lactulose to daily instead of twice daily Voltaren gel for back pain 02/08/2023: Dramatic improvement Continue supportive care (1) HAIM Mitchell DO Feb 08, 2023 07:17
[2023-02-08] MEDS: LACTULOSE SYRUP 10GM/15ML 30ML UDC PO SCH (07:44)
[2023-02-08] MEDS: SENNA W/DOCUSATE TABLET PO SCH ×2 (07:58→19:54)
[2023-02-08] MEDS: ASPIRIN 81 MG CHEWABLE TABLET PO SCH (07:58)
[2023-02-08] MEDS: ENOXAPARIN 40 MG/0.4 ML SYRINGE SC SCH (07:58)
[2023-02-08] MEDS: DOCUSATE SODIUM 100 MG CAPSULE PO SCH ×2 (07:59→19:53)
[2023-02-08] MEDS: DICLOFENAC 1% GEL 50 GM TUBE TOP SCH ×4 (07:59→19:55)
[2023-02-08 08:00] VITALS: BP 118/60
--- NOTE | 2023-02-08 09:16 | Occupational Ther Daily Note ---
OT Current Status-Daily Note Subjective Pt agreeable to OT tx, states he wants to discharge today. Spouse present for family training. Mental Status/Objective Patient Orientation: Normal For Age ADL-Treatment Therapy Code Descriptions/Definitions Functional [place] Measure: 0=Not Assessed/NA 4=Minimal Assistance 1=Total Assistance 5=Supervision or Setup 2=Maximal Assistance 6=Modified [place] 3=Moderate Assistance 7=Complete IndependenceSCALE: Activities may be completed with or without assistive devices. 8-Wpbuikdywh-ygkccdt completes the activity by him/herself with no assistance from a helper. 5-Set-up or Clean-up Assistance-helper sets up or cleans up; patient completes activity. [place] assists only prior to or following the activity. 4-Supervision or Touching Assistance-helper provides verbal cues and/or touching /steadying and/or contact guard assistance as patient completes activity. Assistance may be provided throughout the activity or intermittently. 3-Partial/Moderate Assistance-helper does LESS THAN HALF the effort. [place] lifts, holds or supports trunk or limbs, but provides less than half the effort. 2-Substantial/Maximal Assistance-helper does MORE THAN HALF the effort. [place] lifts or holds trunk or limbs and provides more than half the effort. 9-Usbwhuskh-wrprzp does ALL the effort. Patient does none of the effort to complete the activity. Or, the assistance of 2 or more helpers is required for the patient to complete the activity. If activity was not attempted, code reason: 7-Patient Refused. 9-Not Applicable-not attempted and the patient did not perform the activity before the current illness, exacerbation or injury. 10-Not Attempted due to Environmental Limitations-(lack of equipment, weather restraints, etc.). 88-Not Attempted due to Medical Conditions or Safety Concerns. Eating (QC): 6 Oral Hygiene (QC): 6 Shower/Bathe Self (QC): 4 (Pt declined completing shower at this time. Per pt report and abilities with other ADLs, pt would require SBA. Pt has assistance showering at PLOF.) Upper Body Dressing (QC): 3 (assist buttons. Pt reports requiring assistance at PLOF.) Lower Body Dressing (QC): 5 On/Off Footwear: 5 Toileting Hygiene (QC): 6 Toilet Transfer (QC): 6 Other Treatment Pt in recliner, agreeable to OT Tx. Pt initially declined ADLs, stating he has assistance at home and doesn't want to complete here. OT provided education on rehab process/expectations, pt then agreeable to dressing tasks, but not showering. Pt completed dressing and grooming tasks as outlined above. Pt's spouse present for family education, pt and spouse feel comfortable with pt's current level of assistance. Pt and spouse deny any further questions/concerns at this time regarding ADLs. Post tx, pt in recliner, call light in reach and all needs met. SBA with functional mobility using FWW in room. Education OT Patient Education: Correct positioning, Energy conservation, Modified ADL techniques, Progress toward Goal/Update tx plan, Purpose of tx/functional activities, Rehab process Teaching Recipient: Patient Teaching Methods: Discussion Response to Teaching: Verbalize Understanding BIMS CAM BIMS Expression of Ideas and Wants: Without Difficulty Understanding Verbal Content: Usually Understands ([place]) Brief Interview/Mental Status: Yes IRF WALKER BIMS: IRF WALKER BIMS Response (Comments) Value Repitition of Three Words Three 3 Recalls Socks Yes, No Cue Required 2 Recalls Blue Yes, No Cue Required 2 Recalls Bed Yes, After Cueing 1 Year Correct 3 Month Accurate Within 5 Days 2 Day Correct 1 Total 14 [address] Staff Ass[address] Mental [address] No CAM Mental Status Change/Baseline: 0 Inattention: 0 Disorganized thinkin Altered level of consciousness: 0 OT Short Term Goals Short Term Goals Time Frame: Feb 05, 2023 Toileting hygiene: 3 Lower body dressin Putting on/taking off footwear: 3 OT Watermaster Goals Care Home Goals Time Frame: Feb 26, 2023 Acute change in mental status: 1 Inattention: 0 Disorganized thinkin Altered level of consciousness: 0 Eating (QC): 6 (met) Oral Hygiene (QC): 6 (met) Toileting Hygiene (QC): 6 (met) Shower/Bathe Self (QC): 6 (not met) Upper Body Dressing (QC): 6 (not met) Lower Body Dressing (QC): 6 (not met) On/Off Footwear (QC): 6 (not met) Additional Goals: 1-Demonstrate ADL Tasks, 2-Verbalize Understanding, 3- ImproveStrength/Destinee 1=Demonstrate adherence to instructed precautions during ADL tasks. 2=Patient will verbalize/demonstrate understanding of assistive devices/modifications for ADL. 3=Patient will improve strength/tolerance for activity to enable patient to perform ADL's. OT Education/Plan Problem List/Assessment Assessment: Decreased Activ Tolerance, Decreased UE Strength, Impaired Funct Balance, Impaired I ADL's Discharge Recommendations Plan/Recommendations: Continue POC Treatment Plan/Plan of Care Patient would benefit from OT for education, treatment and training to promote independence in ADL's, mobility, safety and/or upper extremity function for ADL's. Plan of Care: ADL Retraining, Functional Mobility, Group Exercise/Act as Ind, UE Funct Exercise/Act Treatment Duration: Feb 26, 2023 Frequency: At least 5 of 7 days/Wk (IRF) Estimated Hrs Per Day: Other (75 mins per day) Agreement: Yes Rehab Potential: Good Time Start Time: 08:15 Stop Time: 09:30 DATE: Feb 08, 2023 Total Time Billed (hr/min): 75 Billed Treatment Time 1, ADL 5 RENÉ ESQUIVEL OT Feb 08, 2023 09:16
--- NOTE | 2023-02-08 10:09 | Physical Therapy Daily Note ---
PT Daily Note-Current Subjective Patient states he had a good weekend, but is wanting to go home. DON in with patient and when PT entered room. Patient is returning to [facility] on 02/10[facility]23. He states his back is a little sore - he has taken some aspirin for the back pain. Discussed with that patient needs prn cues to not understep walker/to slow down and step into walker while walking. He also needs to remember to scoot to edge of chair prior to sit>stand -- he sometimes attempts this sitting back in a chair and is unable to stand until he restarts, scoots forward, and then stands. verbalizes understanding. Also discussed patient's double vision with patient and - he had some issues with this prior to this hospitalization and has seen for it in the past. Pain Section J - Health Conditions 1. Rarely or not at all 2. Occasionally 3. Frequently 4. Almost constantly 8. Unable to answer Pain Effect on Sleep: 1 Pain Interference with Therapy: 1 Pain Interference w/Day-to-Day: 1 Mental Status Patient Orientation: Person, Place, Situation Transfers SCALE: Activities may be completed with or without assistive devices. 4-Tgwtybmdeh-qcbkomi completes the activity by him/herself with no assistance from a helper. 5-Set-up or Clean-up Assistance-helper sets up or cleans up; patient completes activity. [place] assists only prior to or following the activity. 4-Supervision or Touching Assistance-helper provides verbal cues and/or touching/steadying and/or contact guard assistance as patient completes activity. Assistance may be provided throughout the activity or intermittently. 3-Partial/Moderate Assistance-helper does LESS THAN HALF the effort. [place] lift s, holds or supports trunk or limbs, but provides less than half the effort. 2-Substantial/Maximal Assistance-helper does MORE THAN HALF the effort. [place] lifts or holds trunk or limbs and provides more than half the effort. 9-Rnaiqgxah-rnrgke does ALL the effort. Patient does none of the effort to complete the activity. Or, the assistance of 2 or more helpers is required for the patient to complete the activity. If activity was not attempted, code reason: 7-Patient Refused. 9-Not Applicable-not attempted and the patient did not perform the activity before the current illness, exacerbation or injury. 10-Not Attempted due to Environmental Limitations-(lack of equipment, weather restraints, etc.). 88-Not Attempted due to Medical Conditions or Safety Concerns. Roll Left & Right (QC): 6 Sit to Lying (QC): 6 Lying to Sitting/Side of Bed(Q: 6 Sit to Stand (QC): 5 (set up of walker. Patient has to take 2 attempts from arm chairs, 1 attempt from Nustep and recliner.) Chair/Tlo-ud-Gztnu Xfer(QC): 5 (set up of walker) Toilet Transfer (QC): 5 (set up to obtain walker) Car Transfer (QC): 4 ((I) getting in to car, CGA to steady while standing up from car) Weight Bearing Full Weight Bearing Full Weight Bearing Gait Training Distance: 150', 812' Walk 10 feet (QC): 5 Walk 50 ft with 2 Turns(QC): 5 Walk 150 ft (QC): 4 (/c FWW, prn cues to slow anupam and not understep walker - 2 cues over 812') Walking 10ft/uneven surface-QC: 4 (CGA /c FWW) Gait Assistive Device: FWW Wheelchair Training Does the Pt Use a Wheelchair?: No Wheel 50 ft with 2 turns (QC): 9 Wheel 150 ft (QC): 9 Stair Training Stair Training: Handrails/: 2 handrails #of Steps: 15 4 Steps (QC): 4 (CGA) Exercises Standing exercise in // bars, standing on blue foam /c 2# leg weights (B). Hi knee march x 20, heel/toe raises x 20, hip extension alternating legs x 20, hip abduction alternating legs, hip flexion with knee extension x 20 alternating legs. Seated exercise: LAQ with VMO ball squeeze 10 x :05 holds and 2# weights (B), hip abduction with blue t-band x 20, ham curls with BTB and 2# x 20 (B). hip flexion BTB x 20 (B), hip extension BTB x 20 (B). DF x 20 BTB (B). PF x 20 BTB (B). NuStep Minutes: 15 NuStep Workload: 4 Neuromuscular Big/Loud lateral steps with same hand lateral reach at // bars x 20 reps, alternating sides to increase balance outside of normal YEN. Standing on blue foam /c arms across chest and eyes closed x 10 seconds, 5 reps requiring Min (A) due to leaning (L) and posteriorly. PT Veterinary Medicine Scientist Goals Veterinary Medicine Scientist Goals PT [facility] Goals Time Frame: Feb 15, 2023 Roll Left & Right (QC): 4 Sit to Lying (QC): 4 Lying-Sitting on Side/Bed(QC): 4 Sit to Stand (QC): 4 Chair/Mkn-ug-Zmlxn Xfer(QC): 3 Toilet Transfer (QC): 3 Car Transfer (QC): 3 Does the Patient Walk: Yes Walk 10 feet (QC): 3 Walk 50ft with 2 Turns (QC): 3 Walk 150 ft (QC): 3 Walking 10ft on Uneven Surface: 3 1 Step (curb) (QC): 3 4 Steps (QC): 9 12 Steps (QC): 9 Picking up an Object (QC): 3 Does the Pt use WC or Scooter?: Yes Wheel 50 feet with 2 turns (QC: 6 Type: Manual Wheel 150 feet: 6 Type: Manual PT Plan Treatment/Plan Treatment Plan: Continue Plan of Care Treatment Plan: Bed Mobility, Concurrent Therapy, Education, Functional Activity [place], Functional Strength, Group Therapy, Gait, Safety, Therapeutic Exercise, Transfers Treatment Duration: Feb 15, 2023 Frequency: At least 5 of 7 days/Wk (IRF) Estimated Hrs Per Day: Other (75' per Day M-F) Patient and/or Family Agrees t: Yes Time Time In: 945 Time Out: 1100 DATE: Feb 08, 2023 Total Billed Treatment Time: 75 Total Billed Treatment 2EX, 2GT, 1FShasha Hernandez PT Feb 08, 2023 10:09
--- NOTE | 2023-02-08 12:34 | Physical Therapy Daily Note ---
PT Daily Note-Current Pain Section J - Health Conditions 1. Rarely or not at all 2. Occasionally 3. Frequently 4. Almost constantly 8. Unable to answer Pain Effect on Sleep: 1 Pain Interference with Therapy: 1 Pain Interference w/Day-to-Day: 1 Transfers SCALE: Activities may be completed with or without assistive devices. 5-Rapjyzrnot-qvxnoij completes the activity by him/herself with no assistance from a helper. 5-Set-up or Clean-up Assistance-helper sets up or cleans up; patient completes activity. [place] assists only prior to or following the activity. 4-Supervision or Touching Assistance-helper provides verbal cues and/or touching/steadying and/or contact guard assistance as patient completes activity. Assistance may be provided throughout the activity or intermittently. 3-Partial/Moderate Assistance-helper does LESS THAN HALF the effort. [place] lifts, holds or supports trunk or limbs, but provides less than half the effort. 2-Substantial/Maximal Assistance-helper does MORE THAN HALF the effort. [place] lifts or holds trunk or limbs and provides more than half the effort. 7-Kxxwgwgyp-uwcnqx does ALL the effort. Patient does none of the effort to complete the activity. Or, the assistance of 2 or more helpers is required for the patient to complete the activity. If activity was not attempted, code reason: 7-Patient Refused. 9-Not Applicable-not attempted and the patient did not perform the activity before the current illness, exacerbation or injury. 10-Not Attempted due to Environmental Limitations-(lack of equipment, weather restraints, etc.). 88-Not Attempted due to Medical Conditions or Safety Concerns. Weight Bearing Full Weight Bearing Full Weight Bearing PT Grid Maker Goals Grid Maker Goals PT [facility] Goals Time Frame: Feb 15, 2023 Roll Left & Right (QC): 4 Sit to Lying (QC): 4 Lying-Sitting on Side/Bed(QC): 4 Sit to Stand (QC): 4 Chair/Ccp-lq-Jegcl Xfer(QC): 3 Toilet Transfer (QC): 3 Car Transfer (QC): 3 Does the Patient Walk: Yes Walk 10 feet (QC): 3 Walk 50ft with 2 Turns (QC): 3 Walk 150 ft (QC): 3 Walking 10ft on Uneven Surface: 3 1 Step (curb) (QC): 3 4 Steps (QC): 9 12 Steps (QC): 9 Picking up an Object (QC): 3 Does the Pt use WC or Scooter?: Yes Wheel 50 feet with 2 turns (QC: 6 Type: Manual Wheel 150 feet: 6 Type: Manual PT Plan Treatment/Plan Treatment Plan: Continue Plan of Care Treatment Plan: Bed Mobility, Concurrent Therapy, Education, Functional Activity [place], Functional Strength, Group Therapy, Gait, Safety, Therapeutic Exercise, Transfers Treatment Duration: Feb 15, 2023 Frequency: At least 5 of 7 days/Wk (IRF) Estimated Hrs Per Day: Other (75' per Day M-F) Patient and/or Family Agrees t: Yes *THIS IS A DUPLICATE NOTE INITIATED IN ERROR. Please refer to note 02/08/2023 at 1009 for today's treatment status and charges Time Time In: 0 Time Out: 0 DATE: Feb 08, 2023 Total Billed Treatment Time: 0 Total Billed Treatment 0 Shasha Bansal PT Feb 08, 2023 12:34
--- NOTE | 2023-02-08 13:41 | Speech Therapy Daily Note ---
Speech Daily Progress Note Subjective Date Seen by Provider: Feb 08, 2023 Time Seen by Provider: 11:45 Pt agreeable to session. Pt's present for first few minutes of session. Objective Pt participates in oral motor exercises (OMEs). Pt completes the chin tuck with resistance, 5x with 20 second hold, and grace exercise, 5x. Pt continues to use safe swallow guidelines during PO intake, and demonstrates no s/s of aspiration during lunch this date. Assessment Assessment Current Status: Good Progress Treatment Plan Continue Plan of Care Speech Prison Goals Supervisor Picking Crew Goals Pt will demonstrate diet upgrade trials without s/s of aspiration during PO intake with 5/5 trials. Pt will demonstrate adequate use of safe swallow strategies to eliminate s/s of laryngeal penetration and/or aspiration of safest, least restrictive diet with cues during 80% of therapeutic trials. Speech-Plan Treatment Plan Speech Therapy Treatment Plan: Continue Plan of Care Treatment Duration: Jan 25, 2023 Frequency: At least 5 of 7 days/Wk (IRF) Estimated Hrs Per Day: .5 hour per day Rehab Potential: Good Time Speech Therapy Time In: 11:45 Speech Therapy Time Out: 12:15 DATE: Feb 08, 2023 Total Billed Time: 30 Billed Treatment Time 1 DYST 30 min Evelyn Galeas Feb 08, 2023 13:41
[2023-02-08] MEDS: Sulfamethoxazole/Trimethoprim DS TABLET PO SCH (17:31)
[2023-02-08] MEDS: traZODone 50 MG (DESYREL) TAB PO SCH (19:54)
[2023-02-08 20:35] VITALS: BP 112/60
[2023-02-09] MEDS: TROSPIUM 20 MG (SANCTURA) TAB PO SCH ×2 (05:26→16:14)
[2023-02-09] MEDS: ACETAMINOPHEN 325 MG TABLET PO PRN ×3 (05:26→20:26)
[2023-02-09] MEDS: CARBIDOPA/LEVODOPA 25/100 TABLET PO SCH ×3 (05:26→18:13)
[2023-02-09] MEDS: POTASSIUM BICARB 20 MEQ effervescent TABLET PO SCH (06:50)
[2023-02-09] MEDS: THERAPEUTIC MULTIVITAMIN W/MINERALS TABLET PO SCH (06:50)
[2023-02-09 07:32] VITALS: BP 119/58
--- NOTE | 2023-02-09 08:31 | Occupational Ther Daily Note ---
OT Current Status-Daily Note Subjective Pt agreeable to OT Tx Mental Status/Objective Patient Orientation: Normal For Age ADL-Treatment Therapy Code Descriptions/Definitions Functional [place] Measure: 0=Not Assessed/NA 4=Minimal Assistance 1=Total Assistance 5=Supervision or Setup 2=Maximal Assistance 6=Modified [place] 3=Moderate Assistance 7=Complete IndependenceSCALE: Activities may be completed with or without assistive devices. 7-Aeudqapyyq-qjdkduv completes the activity by him/herself with no assistance from a helper. 5-Set-up or Clean-up Assistance-helper sets up or cleans up; patient completes activity. [place] assists only prior to or following the activity. 4-Supervision or Touching Assistance-helper provides verbal cues and/or touching/steadying and/or contact guard assistance as patient completes activity. Assistance may be provided throughout the activity or intermittently. 3-Partial/Moderate Assistance-helper does LESS THAN HALF the effort. [place] lifts, holds or supports trunk or limbs, but provides less than half the effort. 2-Substantial/Maximal Assistance-helper does MORE THAN HALF the effort. [place] lifts or holds trunk or limbs and provides more than half the effort. 2-Pvjosczbs-qzhwic does ALL the effort. Patient does none of the effort to complete the activity. Or, the assistance of 2 or more helpers is required for the patient to complete the activity. If activity was not attempted, code reason: 7-Patient Refused. 9-Not Applicable-not attempted and the patient did not perform the activity before the current illness, exacerbation or injury. 10-Not Attempted due to Environmental Limitations-(lack of equipment, weather restraints, etc.). 88-Not Attempted due to Medical Conditions or Safety Concerns. Eating (QC): 6 Oral Hygiene (QC): 6 Upper Body Dressing (QC): 3 (Assists with buttons. Pt requires assist at PLOF with buttons.) Other Treatment Pt agreeable to OT tx. Pt ate breakfast, IND. Pt then changed shirt, assistance with buttons only. pt used FWW to stand at sink for grooming tasks, IND. Pt performed functional mobility to therapy gym using FWW, IND. OT tx focused on increasing BUE Strength, activity tolerance, and fine motor coordination. pt completed UE reaching tasks, removing, manipulating, and placing nuts/bolts on wooden block. Pt able to complete x15 without cues. Pt returned to his selina, using FWW, IND. Post tx, pt in recliner, call light in reach and all needs met. Education OT Patient Education: Correct positioning, Energy conservation, Modified ADL techniques, Progress toward Goal/Update tx plan, Purpose of tx/functional activities, Rehab process Teaching Recipient: Patient Teaching Methods: Discussion Response to Teaching: Verbalize Understanding OT Short Term Goals Short Term Goals Time Frame: Feb 05, 2023 Toileting hygiene: 3 Lower body dressin Putting on/taking off footwear: 3 OT Air Brush Artist Goals Assisted Goals Time Frame: Feb 26, 2023 Acute change in mental status: 0 Inattention: 0 Disorganized thinkin Altered level of consciousness: 0 Eating (QC): 6 (met) Oral Hygiene (QC): 6 (met) Toileting Hygiene (QC): 6 (met) Shower/Bathe Self (QC): 6 (not met) Upper Body Dressing (QC): 6 (not met) Lower Body Dressing (QC): 6 (not met) On/Off Footwear (QC): 6 (not met) Additional Goals: 1-Demonstrate ADL Tasks, 2-Verbalize Understanding, 3- ImproveStrength/Destinee 1=Demonstrate adherence to instructed precautions during ADL tasks. 2=Patient will verbalize/demonstrate understanding of assistive devices/modifications for ADL. 3=Patient will improve strength/tolerance for activity to enable patient to perform ADL's. OT Education/Plan Problem List/Assessment Assessment: Decreased Activ Tolerance, Decreased UE Strength, Impaired I ADL's, Impaired Self-Care Skills Discharge Recommendations Plan/Recommendations: Continue POC Treatment Plan/Plan of Care Patient would benefit from OT for education, treatment and training to promote independence in ADL's, mobility, safety and/or upper extremity function for ADL's. Plan of Care: ADL Retraining, Functional Mobility, Group Exercise/Act as Ind, UE Funct Exercise/Act Treatment Duration: Feb 26, 2023 Frequency: At least 5 of 7 days/Wk (IRF) Estimated Hrs Per Day: Other (75 mins per day) Agreement: Yes Rehab Potential: Good Time Start Time: 07:15 Stop Time: 08:30 DATE: Feb 09, 2023 Total Time Billed (hr/min): 75 Billed Treatment Time 1, ADL 3 (45'), FA 2 (30') RENÉ ESQUIVEL OT Feb 09, 2023 08:31
[2023-02-09] MEDS: DOCUSATE SODIUM 100 MG CAPSULE PO SCH ×2 (08:42→20:25)
[2023-02-09] MEDS: ENOXAPARIN 40 MG/0.4 ML SYRINGE SC SCH (08:42)
[2023-02-09] MEDS: SENNA W/DOCUSATE TABLET PO SCH ×2 (08:43→20:25)
[2023-02-09] MEDS: ASPIRIN 81 MG CHEWABLE TABLET PO SCH (08:43)
[2023-02-09] MEDS: DICLOFENAC 1% GEL 50 GM TUBE TOP SCH ×4 (08:44→20:25)
[2023-02-09] MEDS: LACTULOSE SYRUP 10GM/15ML 30ML UDC PO SCH (08:44)
--- NOTE | 2023-02-09 10:40 | Physical Therapy Daily Note ---
PT Daily Note-Current Subjective States his (L) shoulder is a little sore, but his back is not bothering him. Pain Section J - Health Conditions 1. Rarely or not at all 2. Occasionally 3. Frequently 4. Almost constantly 8. Unable to answer Pain Effect on Sleep: 1 Pain Interference with Therapy: 1 Pain Interference w/Day-to-Day: 1 Appearance Patient dressed and up in recliner when PT entered room. in room. Transfers SCALE: Activities may be completed with or without assistive devices. 3-Ekzkzzwthr-jqpbdgq completes the activity by him/herself with no assistance from a helper. 5-Set-up or Clean-up Assistance-helper sets up or cleans up; patient completes activity. [place] assists only prior to or following the activity. 4-Supervision or Touching Assistance-helper provides verbal cues and/or touching/steadying and/or contact guard assistance as patient completes activity. Assistance may be provided throughout the activity or intermittently. 3-Partial/Moderate Assistance-helper does LESS THAN HALF the effort. [place] lifts, holds or supports trunk or limbs, but provides less than half the effort. 2-Substantial/Maximal Assistance-helper does MORE THAN HALF the effort. [place] lifts or holds trunk or limbs and provides more than half the effort. 9-Melulddmm-cdyljq does ALL the effort. Patient does none of the effort to complete the activity. Or, the assistance of 2 or more helpers is required for the patient to complete the activity. If activity was not attempted, code reason: 7-Patient Refused. 9-Not Applicable-not attempted and the patient did not perform the activity be fore the current illness, exacerbation or injury. 10-Not Attempted due to Environmental Limitations-(lack of equipment, weather restraints, etc.). 88-Not Attempted due to Medical Conditions or Safety Concerns. Roll Left & Right (QC): 6 Sit to Lying (QC): 6 Lying to Sitting/Side of Bed(Q: 6 Sit to Stand (QC): 6 (From all seat surfaces today, increased time to complete) Chair/Gnw-tb-Dofca Xfer(QC): 5 (set up assist to obtain FWW) Toilet Transfer (QC): 5 Car Transfer (QC): 4 (cues for safe technique (to NOT step into car first)) Weight Bearing Full Weight Bearing Full Weight Bearing Gait Training Distance: 902' /s rest Walk 10 feet (QC): 6 Walk 50 ft with 2 Turns(QC): 6 Walk 150 ft (QC): 6 ((I) for 150'- able to self correct posture without cues not physical assist. At ~ 800 feet pepe becomes fatigued with SBA-CGA provided, but no LOB.) Walking 10ft/uneven surface-QC: 4 Gait Assistive Device: FWW ambulated to elevator, patient pushed buttons, walked to ramp [facility] and descended ramp CGA, ascended CGA-SBA /c FWW Wheelchair Training Does the Pt Use a Wheelchair?: No Wheel 50 ft with 2 turns (QC): 9 Wheel 150 ft (QC): 9 Stair Training 1 Step (curb) (QC): 4 (CGA during walker placement) 4 Steps (QC): 5 (setup assist to remove walker /a stairs and place walker in front /p stairs) 12 Steps (QC): 5 Stairs: Pattern: Reciprocal Balance Picking up an Object (QC): 4 (CGA-SBA /s device, x 3) Special Test Comments Elderly Mobility Scale: 15/20 Exercises NuStep Minutes: 15 NuStep Workload: 4 (O2 sats remained 95% during Nustep) Treatments (B) LE ex with blue t-band in sitting: DF x 20 (B), PF x 20 (B), ham curls x 20 (B), hip flexion x 20 (B), hip extension x 20 (B), hip abd x 20 (B), hip add x 20 (B). Chair push ups x 10. Assessment Current Status: Excellent Progress At this time, patient is no longer using w/c. All other goals met or exceeded. Plan to D/C home with and continue outpatient PT on 02/10/23. PT Usp Goals Usp Goals PT Usp Goals Time Frame: Feb 15, 2023 Roll Left & Right (QC): 4 Sit to Lying (QC): 4 Lying-Sitting on Side/Bed(QC): 4 Sit to Stand (QC): 4 Chair/Oon-ov-Yycey Xfer(QC): 3 Toilet Transfer (QC): 3 Car Transfer (QC): 3 Does the Patient Walk: Yes Walk 10 feet (QC): 3 Walk 50ft with 2 Turns (QC): 3 Walk 150 ft (QC): 3 Walking 10ft on Uneven Surface: 3 1 Step (curb) (QC): 3 4 Steps (QC): 9 12 Steps (QC): 9 Picking up an Object (QC): 3 Does the Pt use WC or Scooter?: Yes Wheel 50 feet with 2 turns (QC: 6 Type: Manual Wheel 150 feet: 6 Type: Manual PT Plan Treatment/Plan Treatment Plan: Continue Plan of Care Treatment Plan: Bed Mobility, Concurrent Therapy, Education, Functional Activity [place], Functional Strength, Group Therapy, Gait, Safety, Therapeutic Exercise, Transfers Plan to D/C home 02/10/23. Treatment Duration: Feb 15, 2023 Frequency: At least 5 of 7 days/Wk (IRF) Estimated Hrs Per Day: Other (75' per Day M-F) Patient and/or Family Agrees t: Yes Time Time In: 1000 Time Out: 1115 DATE: Feb 09, 2023 Total Billed Treatment Time: 75 Total Billed Treatment 1, EX2, GT2, FA = 75' Shasha Bansal PT Feb 09, 2023 10:40
--- NOTE | 2023-02-09 10:49 | PM&R Progress Note ---
Subjective HPI/CC On Admission Date Seen by Provider: Feb 09, 2023 Time Seen by Provider: 12:30 Subjective/Events-last exam 02/09/2023: Set for discharge tomorrow Bowel and bladder seem to be going well Dramatic improvement in scores from mostly 1's fully dependent to 5 and 6 02/08/2023: Patient dramatically improved Bladder incontinence varies Pain is reportedly improved with Voltaren gel Discharge is planned for Wednesday02/07/2023: Patient doing much better Will change lactulose to once a day instead of twice a day since it appears to be too much for him Urination seems to be straightened out Voltaren gel will be initiated on his back 02/06/2023: Patient doing well Bowels are moving since lactulose scheduled twice daily Participation is good with therapy Discharge is planned on Wednesday02/05/2023: Patient doing better Bowel regimen will include lactulose twice daily scheduled Reviewed meds and labs Feels good at bedside 02/04/2023: Much improved No falls No pain Weaned off O2 02/03/2023: Patient doing a lot better Giving 2 Dulcolax suppositories to help with bowels May need soapsuds enema Will monitor closely Working on bladder training 02/02/2023: Patient was to go home Told me his long-term care insurance is charging him $100 a day to be in inpatient rehab Bladder training initiated Incontinence is a concern from his Updated son 02/01/2023: Much improved Walking well No falls No pain Lungs are clear Weaned O2 now 01/31/2023: Patient doing a lot better Weaning down oxygen Lungs are clear Bowels have not moved and maintaining the bowel regimen when he allows 01/30/2023: Doing well No pain Lungs are clear Weaning O2 to 1L/min at bedside Needs to take BM regimen after he refuses it 01/29/2023: Patient dramatically improved Moving around much better No BM but taking bowel regimen No falls Lungs are clear 01/28/2023: Patient dramatically improved Slow recovery still remains No falls No pain Weaning oxygen Son at bedside 01/27/2023: Patient doing much better Appears to have good spirits today at bedside Bowels evacuated We will maintain bowel regimen No dysphagia currently Lungs are clear Oxygen maintain and weaning down 01/26/2023: Rested well last night Slow walking with therapy and 2 assists but it was strong and dramatic improvement Dysphagia improved CXR residual infiltrates Labs reviewed Potassium 3.4 so will initiate supplement BP stable O2 requirements are 4.0L Bowel regimen will be continued until BM Review of Systems General: Fatigue, Malaise Objective Exam Vital Signs Vital Signs Date Time Temp Pulse Resp B/P (MAP) Pulse Ox O2 Delivery O2 Flow Rate FiO2 02/09/23 09:00 Room Air 02/09/23 07:32 36.8 83 19 119/58 (78) 95 02/05/23 21:37 0.00 02/05/23 08:43 21 Capillary Refill : General Appearance: No Apparent Distress, WD/WN, Chronically ill HEENT: PERRL/EOMI, Normal ENT Inspection, Pharynx Normal Neck: Full Range of Motion, Normal Inspection, Non Tender, Supple, Carotid Bruit Respiratory: Chest Non Tender, Lungs Clear, Normal Breath Sounds, No Accessory Muscle Use, No Respiratory Distress, Decreased Breath Sounds Cardiovascular: Regular Rate, Rhythm, No Edema, No Gallop, No JVD, No Murmur, Normal Peripheral Pulses Gastrointestinal: Normal Bowel Sounds, No Organomegaly, No Pulsatile Mass, Non Tender, Soft Back: Normal Inspection, No CVA Tenderness, No Vertebral Tenderness Extremity: Normal Capillary Refill, Normal Inspection, Normal Range of Motion, Non Tender, No Calf Tenderness, No Pedal Edema Neurologic/Psychiatric: Alert, Oriented x3, sql report developer II-XII Norm as Tested, Abnormal Gait, Depressed Affect, Motor Weakness (generalized) Skin: Normal Color, Warm/Dry Lymphatic: No Adenopathy Results/Procedures Lab Patient resulted labs reviewed. FIM Transfers Therapy Code Descriptions/Definitions Functional [place] Measure: 0=Not Assessed/NA 4=Minimal Assistance 1=Total Assistance 5=Supervision or Setup 2=Maximal Assistance 6=Modified [place] 3=Moderate Assistance 7=Complete IndependenceSCALE: Activities may be completed with or without assistive devices. 4-Pipuiurjui-tsshvbw completes the activity by him/herself with no assistance from a helper. 5-Set-up or Clean-up Assistance-helper sets up or cleans up; patient completes activity. [place] assists only prior to or following the activity. 4-Supervision or Touching Assistance-helper provides verbal cues and/or touching/steadying and/or contact guard assistance as patient completes activity. Assistance may be provided throughout the activity or intermittently. 3-Partial/Moderate Assistance-helper does LESS THAN HALF the effort. [place] lifts, holds or supports trunk or limbs, but provides less than half the effort. 2-Substantial/Maximal Assistance-helper does MORE THAN HALF the effort. [place] lifts or holds trunk or limbs and provides more than half the effort. 6-Uhqsyinbn-vumczp does ALL the effort. Patient does none of the effort to complete the activity. Or, the assistance of 2 or more helpers is required for the patient to complete the activity. If activity was not attempted, code reason: 7-Patient Refused. 9-Not Applicable-not attempted and the patient did not perform the activity before the current illness, exacerbation or injury. 10-Not Attempted due to Environmental Limitations-(lack of equipment, weather restraints, etc.). 88-Not Attempted due to Medical Conditions or Safety Concerns. Roll Left to Right (QC): 6 Sit to Lying (QC): 6 Sit to Stand (QC): 6 (From all seat surfaces today, increased time to complete) Chair/Vli-qa-Tnvfc Xfer(QC): 5 (set up assist to obtain FWW) Car Transfer (QC): 4 ((I) getting in to car, CGA to steady while standing up from car) Gait Training Does the Patient Walk?: Yes Distance: 150', 812' Walk 10 feet (QC): 5 Walk 50 ft with 2 Turns(QC): 5 Walk 150 ft (QC): 4 (/c FWW, prn cues to slow anupam and not understep walker - 2 cues over 812') Walking 10ft/uneven surface-QC: 4 (CGA /c FWW) Gait Persons Needed: 1 Gait Assistive Device: FWW Wheelchair Training Does the Pt Use a Wheelchair?: No Distance: 135' Wheel 50 ft with 2 turns (QC): 9 Wheel 150 ft (QC): 9 Type of Wheelchair: Manual Stair Training Stair Training: Handrails/: 2 handrails #of Steps: 15 1 Step (curb) (QC): 5 4 Steps (QC): 4 (CGA) 12 Steps (QC): 9 Stairs: Pattern: Step to Balance Picking up an Object (QC): 5 ADL-Treatment Eating (QC): 6 Oral Hygiene (QC): 6 Bathing Location: L Arm, R Arm, L Upper Leg, R Upper Leg, L Lower Leg (including foot), R Lower Leg (including foot), Chest, Abdomen, Buttocks, Perineal Area Shower/Bathe Self (QC): 4 (Pt declined completing shower at this time. Per pt report and abilities with other ADLs, pt would require SBA. Pt has assistance showering at PLOF.) Upper Body Dressing (QC): 3 (Assists with buttons. Pt requires assist at PLOF with buttons.) Lower Body Dressing (QC): 5 On/Off Footwear (QC): 5 Toileting Hygiene (QC): 6 Toilet Transfer (QC): 6 Assessment/Plan Assessment and Plan Assess & Plan/Chief Complaint Assessment: Severe debility following aspiration PNA and respiratory arrest s/p intubation Severe progressive Parkinsonism Dyphagia Severe constipation acute on chronic BPH GERD Hypokalemia Severe constipation acute on chronic Improved on lactulose changing from twice daily to daily Urinary incontinence Plan: Home meds PT OT ST BM regimen 01/28/2023: 01/26/2023: Nebs O2 Replace potassium BM regimen 01/27/2023: Patient dramatically improved Maintain bowel regimen since bowels have evacuated Increase stamina 01/28/2023: Patient dramatically improved Continue aggressive rehab 01/29/2023: Aggressive speech therapy for prevention of aspiration Dramatic improvement 01/30/2023: Focus on regaining strength Wean O2 01/31/2023: Wean oxygen off Bowel regimen 02/01/2023: Weaned O2 off Improved 02/02/2023: Bladder schedule Suppository if needed 02/03/2023: Suppository May need soapsuds enema Continue ambulation 02/04/2023: Monitor closely Fall risk Incontinence management 02/05/2023: Supportive care Monitor closely Lactulose twice daily 02/06/2023: Maintain lactulose twice daily long-term Supportive care 02/07/2023: Supportive care Change lactulose to daily instead of twice daily Voltaren gel for back pain 02/08/2023: Dramatic improvement Continue supportive care 02/09/2023: Discharge is planned tomorrow (1) HAIM Mitchell DO Feb 09, 2023 10:49
--- NOTE | 2023-02-09 13:53 | Speech Therapy Daily Note ---
Speech Daily Progress Note Subjective Date Seen by Provider: Feb 09, 2023 Time Seen by Provider: 11:45 Pt agreeable to session Objective Pt participates in oral motor exercises, chin tuck with resistance, grace, and PB tongue. Pt completes chin tuck with resistance 5x for 30 seconds each. Pt c ompletes grace exercises 5x. Pt completes PB tongue 20x. Pt demonstrates no s/s of dysphagia during PO intake and completes safe swallow guidelines with no cues. Assessment Assessment Current Status: Good Progress Treatment Plan Continue Plan of Care Speech Longterm Goals Longterm Goals Pt will demonstrate diet upgrade trials without s/s of aspiration during PO intake with 5/5 trials. Pt will demonstrate adequate use of safe swallow strategies to eliminate s/s of laryngeal penetration and/or aspiration of safest, least restrictive diet with cues during 80% of therapeutic trials. Speech-Plan Treatment Plan Speech Therapy Treatment Plan: Continue Plan of Care Treatment Duration: Jan 25, 2023 Frequency: At least 5 of 7 days/Wk (IRF) Estimated Hrs Per Day: .5 hour per day Rehab Potential: Good Time Speech Therapy Time In: 11:45 Speech Therapy Time Out: 12:15 DATE: Feb 09, 2023 Total Billed Time: 30 Billed Treatment Time 1 DYST 30 min Evelyn Galeas Feb 09, 2023 13:53
[2023-02-09] MEDS: Sulfamethoxazole/Trimethoprim DS TABLET PO SCH (16:14)
[2023-02-09] MEDS: traZODone 50 MG (DESYREL) TAB PO SCH (20:25)
[2023-02-09 20:45] VITALS: BP 119/60
[2023-02-10] MEDS ORDERED: DICL20GE TOP (04:14)
[2023-02-10] MEDS ORDERED: LACT20SO2 PO (04:14)
[2023-02-10] MEDS ORDERED: POTA20TA28 PO (04:14)
[2023-02-10] MEDS ORDERED: SENN-271 PO (04:14)
--- NOTE | 2023-02-10 04:15 | Discharge Summary ---
Diagnosis/Chief Complaint Date of Admission Jan 25, 2023 at 14:25 Date of Discharge Discharge Date: Feb 10, 2023 Discharge Diagnosis Assessment: Severe debility following aspiration PNA and respiratory arrest s/p intubation Severe progressive Parkinsonism Dyphagia Severe constipation acute on chronic BPH GERD Hypokalemia Severe constipation acute on chronic Improved on lactulose changing from twice daily to daily Urinary incontinence Plan: Home meds PT OT ST BM regimen 01/28/2023: 01/26/2023: Nebs O2 Replace potassium BM regimen 01/27/2023: Patient dramatically improved Maintain bowel regimen since bowels have evacuated Increase stamina 01/28/2023: Patient dramatically improved Continue aggressive rehab 01/29/2023: Aggressive speech therapy for prevention of aspiration Dramatic improvement 01/30/2023: Focus on regaining strength Wean O2 01/31/2023: Wean oxygen off Bowel regimen 02/01/2023: Weaned O2 off Improved 02/02/2023: Bladder schedule Suppository if needed 02/03/2023: Suppository May need soapsuds enema Continue ambulation 02/04/2023: Monitor closely Fall risk Incontinence management 02/05/2023: Supportive care Monitor closely Lactulose twice daily 02/06/2023: Maintain lactulose twice daily long-term Supportive care 02/07/2023: Supportive care Change lactulose to daily instead of twice daily Voltaren gel for back pain 02/08/2023: Dramatic improvement Continue supportive care 02/09/2023: Discharge is planned tomorrow (1) Parkinsons Discharge Summary Discharge Physical Examination Allergies: Coded Allergies: No Known Drug Allergies (Unverified , 01/22/22) Vitals & I&Os Vital Signs Date Time Temp Pulse Resp B/P (MAP) Pulse Ox O2 Delivery O2 Flow Rate FiO2 02/10/23 09:15 Room Air 02/10/23 08:00 36.2 80 19 110/57 (74) 94 02/05/23 21:37 0.00 02/05/23 08:43 21 General Appearance: Alert, Oriented X3, Cooperative Respiratory: Clear to Auscultation Cardiovascular: Regular Rate Psych/Mental Status: Mental Status NL Hospital Course Was the Problem List Reviewed?: Yes Uneventful but lengthy hospital course after a catastrophic aspiration episode causing respiratory arrest requiring intubation and transferred from [place] to [place]. Patient was very debilitated when he arrived in inpatient rehab. Bowel function had not returned and multiple laxatives given with good results and resumption of normal bowel habits with the use of lactulose once a day. Lungs cleared ultimately with use of incentive spirometer and patient was weaned off oxygen. Bladder incontinence is improved during the hospital course. his participation with therapy was excellent. Patient was able to regain all of his baseline function was able to ambulate and perform most of his ADLs and patient was deemed stable for discharge. Labs (last 24 hrs) Laboratory Tests 01/25/23 16:07: Glucometer 99 01/26/23 06:04: White Blood Count 9.0, Red Blood Count 3.83L, Hemoglobin 11.6L, Hematocrit 35L, Mean Corpuscular Volume 92, Mean Corpuscular Hemoglobin 30, Mean Corpuscular Hemoglobin Concent 33, Red Cell Distribution Width 13.0, Platelet Count 201, Mean Platelet Volume 9.7, Immature Granulocyte % (Auto) 1, Neutrophils (%) (Auto) 72, Lymphocytes (%) (Auto) 17, Monocytes (%) (Auto) 7, Eosinophils (%) (Auto) 3, Basophils (%) (Auto) 0, Neutrophils # (Auto) 6.5, Lymphocytes # (Auto) 1.5, Monocytes # (Auto) 0.6, Eosinophils # (Auto) 0.3, Basophils # (Auto) 0.0, Immature Granulocyte # (Auto) 0.1, Sodium Level 137, Potassium Level 3.4L, Chloride Level 106, Carbon Dioxide Level 25, Anion Gap 6, Blood Urea Nitrogen 18, Creatinine 0.66, Estimat Glomerular Filtration Rate 94, BUN/Creatinine Ratio 27, Glucose Level 115H, Calcium Level 8.8, Corrected Calcium 9.6, Total Bi lirubin 1.6H, Aspartate Amino Transf (AST/SGOT) 26, Alanine Aminotransferase (ALT/SGPT) 13, Alkaline Phosphatase 66, Total Protein 5.4L, Albumin 3.0L 02/01/23 05:33: White Blood Count 9.2, Red Blood Count 4.00L, Hemoglobin 12.2L, Hematocrit 38L, Mean Corpuscular Volume 94, Mean Corpuscular Hemoglobin 31, Mean Corpuscular Hemoglobin Concent 32, Red Cell Distribution Width 13.0, Platelet Count 485H, Mean Platelet Volume 9.2, Immature Granulocyte % (Auto) 1, Neutrophils (%) (Auto) 72, Lymphocytes (%) (Auto) 20, Monocytes (%) (Auto) 5, Eosinophils (%) (Auto) 2, Basophils (%) (Auto) 1, Neutrophils # (Auto) 6.6, Lymphocytes # (Auto) 1.8, Monocytes # (Auto) 0.5, Eosinophils # (Auto) 0.2, Basophils # (Auto) 0.1, Immature Granulocyte # (Auto) 0.1, Sodium Level 139, Potassium Level 3.8, Chloride Level 107, Carbon Dioxide Level 25, Anion Gap 7, Blood Urea Nitrogen 12, Creatinine 0.71, Estimat Glomerular Filtration Rate 92, BUN/Creatinine Ratio 17, Glucose Level 98, Calcium Level 9.0, Corrected Calcium 9.5, Total Bilirubin 0.9, Aspartate Amino Transf (AST/SGOT) 33, Alanine Aminotransferase (ALT/SGPT) 17, Alkaline Phosphatase 180H, Total Protein 6.3L, Albumin 3.4, Magnesium Level 2.1 02/08/23 05:39: White Blood Count 6.6, Red Blood Count 3.77L, Hemoglobin 11.4L, Hematocrit 36L, Mean Corpuscular Volume 94, Mean Corpuscular Hemoglobin 30, Mean Corpuscular Hemoglobin Concent 32, Red Cell Distribution Width 13.4, Platelet Count 370, Mean Platelet Volume 9.4, Immature Granulocyte % (Auto) 0, Neutrophils (%) (Auto) 60, Lymphocytes (%) (Auto) 30, Monocytes (%) (Auto) 6, Eosinophils (%) (Auto) 3, Basophils (%) (Auto) 1, Neutrophils # (Auto) 3.9, Lymphocytes # (Auto) 2.0, Monocytes # (Auto) 0.4, Eosinophils # (Auto) 0.2, Basophils # (Auto) 0.0, Immature Granulocyte # (Auto) 0.0, Sodium Level 141, Potassium Level 3.8, Chloride Level 109H, Carbon Dioxide Level 24, Anion Gap 8, Blood Urea Nitrogen 19H, Creatinine 0.73, Estimat Glomerular Filtration Rate 91, BUN/Creatinine Ratio 26, Glucose Level 94, Calcium Level 8.6, Corrected Calcium 9.3, Total Bilirubin 0.6, Aspartate Amino Transf (AST/SGOT) 25, Alanine Aminotransferase (ALT/SGPT) 10, Alkaline Phosphatase 171H, Total Protein 5.2L, Albumin 3.1L Pending Labs Laboratory Tests 01/25/23 16:07: Glucometer 99 01/26/23 06:04: White Blood Count 9.0, Red Blood Count 3.83, Hemoglobin 11.6, Hematocrit 35, Mean Corpuscular Volume 92, Mean Corpuscular Hemoglobin 30, Mean Corpuscular Hemoglobin Concent 33, Red Cell Distribution Width 13.0, Platelet Count 201, Mean Platelet Volume 9.7, Immature Granulocyte % (Auto) 1, Neutrophils (%) (Auto) 72, Lymphocytes (%) (Auto) 17, Monocytes (%) (Auto) 7, Eosinophils (%) (Auto) 3, Basophils (%) (Auto) 0, Neutrophils # (Auto) 6.5, Lymphocytes # (Auto) 1.5, Monocytes # (Auto) 0.6, Eosinophils # (Auto) 0.3, Basophils # (Auto) 0.0, Immature Granulocyte # (Auto) 0.1, Sodium Level 137, Potassium Level 3.4, Chloride Level 106, Carbon Dioxide Level 25, Anion Gap 6, Blood Urea Nitrogen 18, Creatinine 0.66, Estimat Glomerular Filtration Rate 94, BUN/Creatinine Ratio 27, Glucose Level 115, Calcium Level 8.8, Corrected Calcium 9.6, Total Bilirubin 1.6, Aspartate Amino Transf (AST/SGOT) 26, Alanine Aminotransferase (ALT/SGPT) 13, Alkaline Phosphatase 66, Total Protein 5.4, Albumin 3.0 02/01/23 05:33: White Blood Count 9.2, Red Blood Count 4.00, Hemoglobin 12.2, Hematocrit 38, Mean Corpuscular Volume 94, Mean Corpuscular Hemoglobin 31, Mean Corpuscular Hemoglobin Concent 32, Red Cell Distribution Width 13.0, Platelet Count 485, Mean Platelet Volume 9.2, Immature Granulocyte % (Auto) 1, Neutrophils (%) (Auto) 72, Lymphocytes (%) (Auto) 20, Monocytes (%) (Auto) 5, Eosinophils (%) (Auto) 2, Basophils (%) (Auto) 1, Neutrophils # (Auto) 6.6, Lymphocytes # (Auto) 1.8, Monocytes # (Auto) 0.5, Eosinophils # (Auto) 0.2, Basophils # (Auto) 0.1, Immature Granulocyte # (Auto) 0.1, Sodium Level 139, Potassium Level 3.8, Chloride Level 107, Carbon Dioxide Level 25, Anion Gap 7, Blood Urea Nitrogen 12, Creatinine 0.71, Estimat Glomerular Filtration Rate 92, BUN/Creatinine Ratio 17, Glucose Level 98, Calcium Level 9.0, Corrected Calcium 9.5, Total Bilirubin 0.9, Aspartate Amino Transf (AST/SGOT) 33, Alanine Aminotransferase (ALT/SGPT) 17, Alkaline Phosphatase 180, Total Protein 6.3, Albumin 3.4, Magnesium Level 2.1 02/08/23 05:39: White Blood Count 6.6, Red Blood Count 3.77, Hemoglobin 11.4, Hematocrit 36, Mean Corpuscular Volume 94, Mean Corpuscular Hemoglobin 30, Mean Corpuscular Hemoglobin Concent 32, Red Cell Distribution Width 13.4, Platelet Count 370, Mean Platelet Volume 9.4, Immature Granulocyte % (Auto) 0, Neutrophils (%) (A uto) 60, Lymphocytes (%) (Auto) 30, Monocytes (%) (Auto) 6, Eosinophils (%) (Auto) 3, Basophils (%) (Auto) 1, Neutrophils # (Auto) 3.9, Lymphocytes # (Auto) 2.0, Monocytes # (Auto) 0.4, Eosinophils # (Auto) 0.2, Basophils # (Auto) 0.0, Immature Granulocyte # (Auto) 0.0, Sodium Level 141, Potassium Level 3.8, Chloride Level 109, Carbon Dioxide Level 24, Anion Gap 8, Blood Urea Nitrogen 19, Creatinine 0.73, Estimat Glomerular Filtration Rate 91, BUN/Creatinine Ratio 26, Glucose Level 94, Calcium Level 8.6, Corrected Calcium 9.3, Total Bilirubin 0.6, Aspartate Amino Transf (AST/SGOT) 25, Alanine Aminotransferase (ALT/SGPT) 10, Alkaline Phosphatase 171, Total Protein 5.2, Albumin 3.1 Discharge Home Medications: Active Scripts Active Potassium Chloride 8 Meq Capsule.er 8 Meq PO DAILY Stool Softener-Laxative Tablet (Sennosides/Docusate Sodium) 8.6 Mg-50 Mg Tablet 1 Ea PO BID Lactulose 20 Gram/30 Ml Solution 10 Gm PO DAILY@0900 Voltaren Arthritis Pain (Diclofenac Sodium) 1 % Gel..gram. 0 Gm TOP QID four times daily Reported Hydrochlorothiazide 12.5 Mg Tablet 12.5 Mg PO DAILY PRN Solifenacin Succinate 5 Mg Tablet 5 Mg PO HS Multivitamin 1 Each Tablet 1 Each PO DAILY Sulfamethoxazole-Tmp Ss Tablet (Sulfamethoxazole/Trimethoprim) 400 Mg-80 Mg Tablet 1 Ea PO HS Carbidopa-Levodopa 25-100 Tab (Carbidopa/Levodopa) 25 Mg-100 Mg Tablet 3 Ea PO TID Trazodone HCl 50 Mg Tablet 50 Mg PO HS Aspirin 81 Mg Tab.chew 81 Mg PO DAILY Lisinopril 30 Mg Tablet 30 Mg PO DAILY Instructions to patient/family Please see electronic discharge instructions given to patient. Diagnosis/Problems Diagnosis/Problems (1) Parkinsons HAIM PAYNE DO Feb 10, 2023 04:15
[2023-02-10] MEDS: POTASSIUM BICARB 20 MEQ effervescent TABLET PO SCH (06:25)
[2023-02-10] MEDS: CARBIDOPA/LEVODOPA 25/100 TABLET PO SCH (06:25)
[2023-02-10] MEDS: TROSPIUM 20 MG (SANCTURA) TAB PO SCH (06:25)
[2023-02-10] MEDS: THERAPEUTIC MULTIVITAMIN W/MINERALS TABLET PO SCH (06:25)
[2023-02-10] MEDS: ACETAMINOPHEN 325 MG TABLET PO PRN (07:36)
[2023-02-10 08:00] VITALS: BP 110/57
[2023-02-10] MEDS: LACTULOSE SYRUP 10GM/15ML 30ML UDC PO SCH (09:17)
[2023-02-10] MEDS: SENNA W/DOCUSATE TABLET PO SCH (09:18)
[2023-02-10] MEDS: ENOXAPARIN 40 MG/0.4 ML SYRINGE SC SCH (09:18)
[2023-02-10] MEDS: ASPIRIN 81 MG CHEWABLE TABLET PO SCH (09:18)
[2023-02-10] MEDS: DOCUSATE SODIUM 100 MG CAPSULE PO SCH (09:18)
[2023-02-10] MEDS: DICLOFENAC 1% GEL 50 GM TUBE TOP SCH (09:19)
[2023-02-10] MEDS ORDERED: POTA8CAP20 PO (11:06)
--- NOTE | 2023-02-10 16:54 | Therapy Team Discharge Summary ---
Therapy Discharge Summary Discharge Recommendations Date of Discharge Feb 10, 2023 at 10:10 Physical Therapy Patient admitted to ARU 01/25/23 for dx of Parkinson's disease. At the time of D/C patient was (I) with bed mobility, and basic sit>stand. He was setup for bed<>chair and toilet transfers, and CGA /c cues for safety for car transfers. He could ambulate (I) for 150' /c a FWW - was able to self correct posture without cues not physical assist. At ~ 800 feet pepe becomes fatigued with SBA-CGA provided, but no LOB. Was CGA for a curb /c FWW and setup on steps for walker removal only. He was CGA to excelsior picker an object with a field crop harvest contractor in standing with FWW support. His Elderly Mobility Scale score improved to 15/20. He was not using a w/c at time of discharge. He will have outpatient PT at discharge -- recommend a certified [facility] practitioner for patient's Parkinson's symptoms. Roll Left to Right (QC): 6 Sit to Lying (QC): 6 Lying to Sitting/Side of Bed(Q: 6 Sit to Stand (QC): 6 (From all seat surfaces today, increased time to complete) Chair/Bpu-gt-Pzqko Xfer(QC): 5 (set up assist to obtain FWW) Toilet Transfer (QC): 5 Car Transfer (QC): 4 (cues for safe technique (to NOT step into car first)) Does the Patient Walk: Yes Mode of Locomotion: Both Anticipated Mode of Locomotion: Both Walk 10 feet (QC): 6 Walk 50 ft with 2 Turns(QC): 6 Walk 150 ft (QC): 6 ((I) for 150'- able to self correct posture without cues not physical assist. At ~ 800 feet pepe becomes fatigued with SBA-CGA provided, but no LOB.) Walking 10ft on uneven surface: 4 Distance: 900' Gait Assistive Device: FWW Does the Pt Use a Wheelchair: No Wheelchair Distance: na Wheel 50 ft with 2 turns (QC): 9 Wheel 150 ft (QC): 9 Type of Wheelchair: Manual #of Steps: 15 1 Step (curb) (QC): 4 (CGA during walker placement) 4 Steps (QC): 5 (setup assist to remove walker /a stairs and place walker in front /p stairs) 12 Steps (QC): 5 Balance Sitting Static: Poor Balance Sitting Dynamic: Poor Balance-Standing Static: Poor Picking up an Object (QC): 4 (CGA-SBA /s device, x 3) Occupational Therapy Decreased Activ Tolerance, Decreased UE Strength, Impaired I ADL's, Impaired Self-Care Skills Eating (QC): 6 Oral Hygiene (QC): 6 Shower/Bathe Self (QC): 4 (Pt declined completing shower at this time. Per pt report and abilities with other ADLs, pt would require SBA. Pt has assistance showering at PLOF.) Upper Body Dressing (QC): 3 (Assists with buttons. Pt requires assist at PLOF with buttons.) Lower Body Dressing (QC): 5 On/Off Footwear (QC): 5 Toileting Hygiene (QC): 6 PT Face Hardener Goals Face Hardener Goals PT [facility] Goals Time Frame: Feb 15, 2023 Roll Left to Right (QC): 4 Sit to Lying (QC): 4 Lying-Sitting on Side/Bed(QC): 4 Sit to Stand (QC): 4 Chair/Pbj-ld-Pcril Xfer(QC): 3 Toilet/Commode Transfer (QC): 3 Car Transfer (QC): 3 Does the Patient Walk: Yes Walk 10 feet (QC): 3 Walk 10ft-Uneven Surface(QC): 3 Walk 50ft with 2 Turns (QC): 3 Walk 150 ft (QC): 3 Does the Pt use WC or Scooter?: Yes Wheel 50 feet with 2 turns (QC: 6 Type: Manual Wheel 150 feet: 6 Type: Manual 1 Step (curb) (QC): 3 4 Steps (QC): 9 12 Steps (QC): 9 Picking up an Object (QC): 3 OT Face Hardener Goals [facility] Goals Time Frame: Feb 26, 2023 Acute change in mental status: 0 Inattention: 0 Disorganized thinkin Altered level of consciousness: 0 Eating (QC): 6 (met) Oral Hygiene (QC): 6 (met) Toileting Hygiene (QC): 6 (met) Shower/Bathe Self (QC): 6 (not met) Upper Body Dressing (QC): 6 (not met) Lower Body Dressing (QC): 6 (not met) On/Off Footwear (QC): 6 (not met) Additional Goals: 1-Demonstrate ADL Tasks, 2-Verbalize Understanding, 3- ImproveStrength/Destinee 1=Demonstrate adherence to instructed precautions during ADL tasks. 2=Patient will verbalize/demonstrate understanding of assistive devices/modifications for ADL. 3=Patient will improve strength/tolerance for activity to enable patient to perform ADL's. Speech Face Hardener Goals [facility] Goals Pt will demonstrate diet upgrade trials without s/s of aspiration during PO intake with 5/5 trials. Pt will demonstrate adequate use of safe swallow strategies to eliminate s/s of laryngeal penetration and/or aspiration of safest, least restrictive diet with cues during 80% of therapeutic trials. Shasha Bansal PT Feb 10, 2023 16:54
--- NOTE | 2023-02-11 14:52 | Therapy Team Discharge Summary ---
Therapy Discharge Summary Discharge Recommendations Date of Discharge Feb 10, 2023 at 10:10 Physical Therapy Roll Left to Right (QC): 6 Sit to Lying (QC): 6 Lying to Sitting/Side of Bed(Q: 6 Sit to Stand (QC): 6 (From all seat surfaces today, increased time to complete) Chair/Jjf-cw-Vkjdb Xfer(QC): 5 (set up assist to obtain FWW) Toilet Transfer (QC): 5 Car Transfer (QC): 4 (cues for safe technique (to NOT step into car first)) Does the Patient Walk: Yes Mode of Locomotion: Both Anticipated Mode of Locomotion: Both Walk 10 feet (QC): 6 Walk 50 ft with 2 Turns(QC): 6 Walk 150 ft (QC): 6 ((I) for 150'- able to self correct posture without cues not physical assist. At ~ 800 feet pepe becomes fatigued with SBA-CGA provided, but no LOB.) Walking 10ft on uneven surface: 4 Distance: 900' Gait Assistive Device: FWW Does the Pt Use a Wheelchair: No Wheelchair Distance: na Wheel 50 ft with 2 turns (QC): 9 Wheel 150 ft (QC): 9 Type of Wheelchair: Manual #of Steps: 15 1 Step (curb) (QC): 4 (CGA during walker placement) 4 Steps (QC): 5 (setup assist to remove walker /a stairs and place walker in front /p stairs) 12 Steps (QC): 5 Balance Sitting Static: Poor Balance Sitting Dynamic: Poor Balance-Standing Static: Poor Picking up an Object (QC): 4 (CGA-SBA /s device, x 3) Occupational Therapy Pt admitted to ARU with Parkinson's Disease. At [facility], pt required some assistance with ADLs. Upon initial evaluation, pt required partial assistance with eating, SBA-CGA oral care and UBD, and max A LBD, showering, footwear and toileting. OT tx focused on increasing BUE strength and activity tolerance, and increasing safety and independence with ADLs and functional mobility. Pt made functional progress towards goals, but only attained LTGs for eating, oral care and toileting. Pt returned to [facility], d/c from OT. Decreased Activ Tolerance, Decreased UE Strength, Impaired I ADL's, Impaired Self-Care Skills Eating (QC): 6 Oral Hygiene (QC): 6 Shower/Bathe Self (QC): 4 (Pt declined completing shower at this time. Per pt report and abilities with other ADLs, pt would require SBA. Pt has assistance showering at PLOF.) Upper Body Dressing (QC): 3 (Assists with buttons. Pt requires assist at PLOF with buttons.) Lower Body Dressing (QC): 5 On/Off Footwear (QC): 5 Toileting Hygiene (QC): 6 PT Academic Success Coordinator Goals [facility] Goals PT Academic Success Coordinator Goals Time Frame: Feb 15, 2023 Roll Left to Right (QC): 4 Sit to Lying (QC): 4 Lying-Sitting on Side/Bed(QC): 4 Sit to Stand (QC): 4 Chair/Qzc-fa-Yjizx Xfer(QC): 3 Toilet/Commode Transfer (QC): 3 Car Transfer (QC): 3 Does the Patient Walk: Yes Walk 10 feet (QC): 3 Walk 10ft-Uneven Surface(QC): 3 Walk 50ft with 2 Turns (QC): 3 Walk 150 ft (QC): 3 Does the Pt use WC or Scooter?: Yes Wheel 50 feet with 2 turns (QC: 6 Type: Manual Wheel 150 feet: 6 Type: Manual 1 Step (curb) (QC): 3 4 Steps (QC): 9 12 Steps (QC): 9 Picking up an Object (QC): 3 OT [facility] Goals Academic Success Coordinator Goals Time Frame: Feb 26, 2023 Acute change in mental status: 0 Inattention: 0 Disorganized thinkin Altered level of consciousness: 0 Eating (QC): 6 (met) Oral Hygiene (QC): 6 (met) Toileting Hygiene (QC): 6 (met) Shower/Bathe Self (QC): 6 (not met) Upper Body Dressing (QC): 6 (not met) Lower Body Dressing (QC): 6 (not met) On/Off Footwear (QC): 6 (not met) Additional Goals: 1-Demonstrate ADL Tasks, 2-Verbalize Understanding, 3- ImproveStrength/Destinee 1=Demonstrate adherence to instructed precautions during ADL tasks. 2=Patient will verbalize/demonstrate understanding of assistive devices/modifications for ADL. 3=Patient will improve strength/tolerance for activity to enable patient to perform ADL's. Speech Academic Success Coordinator Goals [facility] Goals Pt will demonstrate diet upgrade trials without s/s of aspiration during PO intake with 5/5 trials. Pt will demonstrate adequate use of safe swallow strategies to eliminate s/s of laryngeal penetration and/or aspiration of safest, least restrictive diet with cues during 80% of therapeutic trials. RENÉ ESQUIVEL OT Feb 11, 2023 14:52
== END 2023-02-10 10:10 | disposition home or self-care (01) | DRG 56 ==
PROVIDERS: ADMIT Internal Medicine; ATTEND Internal Medicine
DX: G20.A1 Parkinson's disease without dyskinesia, without mention of fluctuations (principal); J69.0 Pneumonitis due to inhalation of food and vomit; R13.12 Dysphagia, oropharyngeal phase; K59.00 Constipation, unspecified; N40.1 Benign prostatic hyperplasia with lower urinary tract symptoms; N39.498 Other specified urinary incontinence; K21.9 Gastro-esophageal reflux disease without esophagitis; E87.6 Hypokalemia; Z79.82 Long term (current) use of aspirin; Z79.899 Other long term (current) drug therapy; Z91.81 History of falling; M54.9 Dorsalgia, unspecified
CPT/HCPCS: 36415; 71045; 74230; 80053; 82947; 83735; 85025; 94640; 94760